=== PATIENT | female | born 2000 | race Caucasian/White ===

== ENCOUNTER 2025-03-29 16:09 | Emergency (ER) | payer BC, SELFPAY ==
[2025-03-29 16:10] VITALS: BP 123/84; PULSE 90; RESP 20; TEMP 36.2; O2SAT 100; BMI 23.0
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
[2025-03-29] MEDS: Lidocaine 1% (20 ml mdv) 20 ML Vial INFILT (16:26)
[2025-03-29] MEDS: HYDROcodone Bitartrate/Apap 5/325 Tablet PO (16:27)
[2025-03-29] MEDS: Lidocaine/Epi/Tetracaine 50 ML 1 APPLIC TOPICAL (16:27)
[2025-03-29 17:09] VITALS: BP 111/71; PULSE 90; RESP 15; O2SAT 98
[2025-03-29 18:00] VITALS: BP 138/98; PULSE 99; RESP 20; O2SAT 98; O2SAT 99
--- OUTSIDE RECORDS SUMMARY | 2025-03-29 18:05 | XMS RPT_ITS | CCD ---
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 granulocytes (Bld) [#/Vol] 0.06 10*3/uL Normal <0.10 [facility] Comment on above: Order Comment: Speci men Type: BLOOD SPECIMEN Ordering Facility: [facility] Address: [address] [place] [address] Performed By: #### 5 7021-8 #### [facility] CLIA [id number] [address] [place] [address] [place] Immature granulocytes/100 WBC (Bld) 0.7 % Normal [facility] Comment on above: Order Comment: Speci men Type: BLOOD SPECIMEN Ordering Facility: [facility] Address: [address] [place] [address] Performed By: #### 5 7021-8 #### [facility] CLIA [id number] [address] [place] [address] [place] Lymphocytes (Bld) [#/Vol] 1.96 10*3/uL Normal 1.00-4.00 [facility] Comment on above: Order Comment: Speci men Type: BLOOD SPECIMEN Ordering Facility: [facility] Address: [address] [place] [address] Performed By: #### 5 7021-8 #### [facility] CLIA [id number] [address] [place] [address] [place] Lymphocytes/100 WBC (Bld) 21.4 % Normal [facility] Comment on above: Order Comment: Speci men Type: BLOOD SPECIMEN Ordering Facility: [facility] Address: [address] [place] [address] Performed By: #### 5 7021-8 #### [facility] CLIA [id number] [address] [place] [address] [place] MCH (RBC) [Entitic mass] 30.7 pg Normal 26.0-34.0 [facility] Comment on above: Order Comment: Speci men Type: BLOOD SPECIMEN Ordering Facility: [facility] Address: [address] [place] [address] Performed By: #### 5 7021-8 #### [facility] [place] [id number] [address] [place] [address] [place] MCHC (RBC) [Mass/Vol] 32.0 g/dL Normal 30.5-36.0 [facility] Comment on above: Order Comment: Speci men Type: BLOOD SPECIMEN Ordering Facility: [facility] Address: [address] [place] [address] Performed By: #### 5 7021-8 #### [facility] IA [id number] [address] [place] [address] [place] MCV (RBC) [Entitic vol] 95.9 fL Normal 80.0-100.0 [facility] Comment on above: Order Comment: Speci men Type: BLOOD SPECIMEN Ordering Facility: [facility] Address: [address] [place] [address] Performed By: #### 5 7021-8 #### [facility] [place] [id number] [address] [place] [address] [place] Monocytes (Bld) [#/Vol] 1.05 10*3/uL High <0.87 [facility] Comment on above: Order Comment: Speci men Type: BLOOD SPECIMEN Ordering Facility: [facility] Address: [address] [place] [address] Performed By: #### 5 7021-8 #### [facility] CLIA [id number] [address] [place] [address] [place] Monocytes/100 WBC (Bld) 11.4 % Normal [facility] Comment on above: Order Comment: Speci men Type: BLOOD SPECIMEN Ordering Facility: [facility] Address: [address] [place] [address] Performed By: #### 5 7021-8 #### [facility] CLIA [id number] [address] [place] [address] [place] Neutrophils (Bld) [#/Vol] 5.88 10*3/uL Normal 1.45-7.50 [facility] Comment on above: Order Comment: Speci men Type: BLOOD SPECIMEN Ordering Facility: [facility] Address: [address] [place] [address] Performed By: #### 5 7021-8 #### [facility] CLIA [id number] [address] [place] [address] [place] Neutrophils/100 WBC (Bld) 64.0 % Normal [facility] Comment on above: Order Comment: Speci men Type: BLOOD SPECIMEN Ordering Facility: [facility] Address: [address] [place] [address] Performed By: #### 5 7021-8 #### [facility] CLIA [id number] [address] [place] [address] [place] Nucleated RBC (Bld) [#/Vol] 10*3/uL Normal <0.01 [facility] Comment on above: Order Comment: Speci men Type: BLOOD SPECIMEN Ordering Facility: [facility] Address: [address] [place] [address] Performed By: #### 5 7021-8 #### [facility] CLIA [id number] [address] [place] [address] [place] Nucleated RBC/100 WBC (Bld) [Ratio] 0.0 /[address] [facility] Comment on above: Order Comment: Speci men Type: BLOOD SPECIMEN Ordering Facility: [facility] Address: [address] [id number] Performed By: #### 5 7021-8 #### [facility] CLIA [id number] [address] [place], [place] [id number] [place] Platelet mean volume (Bld) [Entitic vol] 9.7 fL Normal 9.0-12.7 [facility] Comment on above: Order Comment: Speci men Type: BLOOD SPECIMEN Ordering Facility: [facility] Address: [address] [place], [place] [address] Performed By: #### 5 7021-8 #### [facility] CLIA [id number] [address] [place] [address] [place] Platelets (Bld) [#/Vol] 265 10*3/uL Normal 150-400 [facility] Comment on above: Order Comment: Speci men Type: BLOOD SPECIMEN Ordering Facility: [facility] Address: [address] [place] [address] Performed By: #### 5 7021-8 #### [facility] CLIA [id number] [address] [place] [address] [place] RBC (Bld) [#/Vol] 4.40 10*6/uL Normal 3.90-5.20 [facility] Comment on above: Order Comment: Speci men Type: BLOOD SPECIMEN Ordering Facility: [facility] Address: [address] [place], [place] [address] Performed By: #### 5 7021-8 #### [facility] CLIA [id number] [address] [place] [address] [place] WBC (Bld) [#/Vol] 9.18 10*3/uL Normal 3.70-11.00 [facility] Comment on above: Order Comment: Speci men Type: BLOOD SPECIMEN Ordering Facility: [facility] Address: [address] [place] [address] Performed By: #### 5 7021-8 #### [facility] CLIA [id number] [address] [place], [place] [address] [place] Comprehensive metabolic 2000 panelon 06-18-2024 Albumin [Mass/Vol] 3.9 g/dL Normal 3.2-5.0 [facility] Comment on above: Order Comment: Myi gita Type: BLOOD SPECIMEN Ordering Facility: [facility] Address: [address] [place] [address] Performed By: #### 3 040-3, , #### [facility] CLIA [id number] [address] [place], [place] [address] [place] ALP [Catalytic activity/Vol] 83 U/L Normal 45-117 [facility] Comment on above: Order Comment: Myi gita Type: BLOOD SPECIMEN Ordering Facility: [facility] Address: [address] [place] [address] Performed By: #### 3 040-3, , #### [facility] CLIA [id number] [address] [place] [address] [place] ALT [Catalytic activity/Vol] 11 U/L Low 13-61 [facility] Comment on above: Order Comment: Myi gita Type: BLOOD SPECIMEN Ordering Facility: [facility] Address: [address] [place] [address] Result Comment: Resu lts may be falsely depressed after the administration of Sulfasalazine and/or Sulfapyridine. Performed By: #### 3 040-3, , #### [facility] CLIA [id number] [address] [place], [place] [address] [place] Anion gap [Moles/Vol] 8 mmol/L Normal 5-16 [facility] Comment on above: Order Comment: Myi men Type: BLOOD SPECIMEN Ordering Facility: [facility] Address: [address] [place] [address] Performed By: #### 3 040-3, , #### [facility] CLIA [id number] [address] [place] [address] [place] AST [Catalytic activity/Vol] 18 U/L Normal 8-34 [facility] Comment on above: Order Comment: Speci men Type: BLOOD SPECIMEN Ordering Facility: [facility] Address: [address] [place] [address] Result Comment: Resu lts may be falsely depressed after the administration of Sulfasalazine and/or Sulfapyridine. Performed By: #### 3 040-3, , #### [facility] CLIA [id number] [address] [place] [address] [place] Bilirubin [Mass/Vol] 0.5 mg/dL Normal 0.2-1.0 [facility] Comment on above: Order Comment: Speci men Type: BLOOD SPECIMEN Ordering Facility: [facility] Address: [address] [place] [address] Performed By: #### 3 040-3, , #### [facility] CLIA [id number] [address] [place] [address] [place] Calcium [Mass/Vol] 10.0 mg/dL Normal 8.5-10.5 [facility] Comment on above: Order Comment: Speci men Type: BLOOD SPECIMEN Ordering Facility: [facility] Address: [address] [place] [address] Performed By: #### 3 040-3, , #### [facility] CLIA [id number] [address] [place], [place] [address] [place] Chloride [Moles/Vol] 107 mmol/L Normal 98-107 [facility] Comment on above: Order Comment: Speci men Type: BLOOD SPECIMEN Ordering Facility: [facility] Address: [address] [place] [address] Performed By: #### 3 040-3, , #### [facility] CLIA [id number] [address] [place], [place] [address] [place] CO2 [Moles/Vol] 28 mmol/L Normal 21-32 [facility] Comment on above: Order Comment: Bryec pelayo Type: BLOOD SPECIMEN Ordering Facility: [facility] Address: [address] [place] [address] Performed By: #### 3 040-3, , #### [facility] CLIA [id number] [address] [place] [address] [place] Creatinine [Mass/Vol] 0.75 mg/dL Normal 0.51-0.95 [facility] Comment on above: Order Comment: Bryce pelayo Type: BLOOD SPECIMEN Ordering Facility: [facility] Address: [address] [place] [address] Result Comment: [place] ents receiving either N-Acetylcysteine (NAC) or Metamizole prior to venipuncture, may have falsely depressed results. Performed By: #### 3 040-3, , #### [facility] CLIA [id number] [address] [place] [address] [facility] Creatinine and Glomerular filtration rate.predicted panel (S/P/Bld) 113 mL/min/1.73m??? Normal >=60 [facility] Comment on above: Order Comment: Bryce pelayo Type: BLOOD SPECIMEN Ordering Facility: [facility] Address: [address] [place] [address] Result Comment: Vicky mated Glomerular Filtration Rate (eGFR) is calculated using the 2020 CKD-EPI creatinine equation. This equation utilizes serum creatinine, sex, and age as parameters. The creatinine assay has traceable calibration to isotope dilution-mass spectrometry. Refer to KDIGO guidelines for clinical interpretation. In patients with unstable renal function, e.g. those with acute kidney injury, the eGFR may not accurately reflect actual GFR. Performed By: #### 3 040-3, , #### [facility] CLIA [id number] [address] [place], [place] [address] [place] Glucose [Mass/Vol] 112 mg/dL High 70-100 [facility] Comment on above: Order Comment: Bryce pelayo Type: BLOOD SPECIMEN Ordering Facility: [facility] Address: [address] [id number] Result Comment: The [place] [employer] (ADA) provides guidance for cutoff values for fasting glucose and random glucose. The ADA defines fasting as no caloric intake for at least 8 hours. Fasting plasma glucose results between 100 to 125 mg/dL indicate increased risk for diabetes (prediabetes). Fasting plasma glucose results greater than or equal to 126 mg/dL meet the criteria for diagnosis of diabetes. In the absence of unequivocal hyperglycemia, results should be confirmed by repeat testing. In a patient with classic symptoms of hyperglycemia or hyperglycemic crisis, random plasma glucose results greater than or equal to 200 mg/dL meet the criteria for diagnosis of diabetes. Reference: Standards of Medical Care in Diabetes 2016, [place] [employer]. Diabetes Care. 2016.39(Suppl 1). Results may be falsely elevated after the administration of Sulfapyridine. Results may be falsely depressed after the administration of Sulfasalazine. Performed By: #### 3 040-3, , #### [facility] CLIA [id number] [address] [place] [address] [place] Potassium [Moles/Vol] 4.2 mmol/L Normal 3.5-5.1 [facility] Comment on above: Order Comment: Speci men Type: BLOOD SPECIMEN Ordering Facility: [facility] Address: [address] [place] [address] Performed By: #### 3 040-3, , #### [facility] CLIA [id number] [address] [place], [place] [address] [place] Protein [Mass/Vol] 6.9 g/dL Normal 6.0-8.5 [facility] Comment on above: Order Comment: Speci men Type: BLOOD SPECIMEN Ordering Facility: [facility] Address: [address] [place] [address] Performed By: #### 3 040-3, , #### [facility] CLIA [id number] [address] [place], [place] [address] [place] Sodium [Moles/Vol] 143 mmol/L Normal 136-145 [facility] Comment on above: Order Comment: Speci men Type: BLOOD SPECIMEN Ordering Facility: [facility] Address: [address] [place] [address] Performed By: #### 3 040-3, 97078-9, 93017-8 #### [facility] CLIA [id number] [address] [place], [place] [address] [facility] Urea nitrogen [Mass/Vol] 19 mg/dL Normal 7- [facility] Comment on above: Order Comment: Speci men Type: BLOOD SPECIMEN Ordering Facility: [facility] Address: [address] [place] [address] Performed By: #### 3 040-3, 43286-0, 47809-6 #### [facility] CLIA [id number] [address] [place], [place] [address] [facility] ED Triage Noteon 06-18-2024 ED Triage Note HNO ID: [id number] Author: KRISTIE GARCIA PA-C Service: ? Author Type: Physician Screener Perfumer Type: ED Triage Notes Filed: 06/18/2024 19:30 Note Text: ED TRIAGE PROVIDER NOTE Patient Name: Saran Mendez Service Date: 06/18/24 BRIEF HPI: This is a 24 year old female who presents to the ED with: constipation x 2 weeks. Has had small bowel movements but still feels as though she is backed up. No N/V, has been having flatus. Reports history of colitis and is concerned this is what she has again. No rectal pain BRIEF EXAM: NAD Awake and Alert Non labored breathing Soft, nontender, nondistended abdomen INITIAL WORKUP AND DECISION MAKING: Orders Placed This Encounter CT ABD/PEL W IVCON CMP CBC W/ DIFF LIPASE MAG LEVEL iv contrast (radiology procedure) SIGNATURE: Kristie Garcia PA-C Normal [facility] HCG QUALITATIVEon 06-18-2024 HCG, QUALITATIVE Negative Normal Negative [facility] Comment on above: Order Comment: Speci men Type: BLOOD SPECIMEN Ordering Facility: [facility] Address: [address] [place], [place] [address] Performed By: #### H CG #### [facility] CLIA [id number] [address] [place] [address] [place] Lipase SerPl-cCncon 06-19-19 Lipase [Catalytic activity/Vol] 47 U/L Normal 12-60 [facility] Comment on above: Order Comment: Speci men Type: BLOOD SPECIMEN Ordering Facility: [facility] Address: [address] [place] [address] Performed By: #### 3 040-3, 60580-3, 48988-6 #### [facility] CLIA [id number] [address] [place] [address] [place] Magnesium SerPl-mCncon 06-18 Magnesium [Mass/Vol] 1.8 mg/dL Normal 1.6-2.6 [facility] Comment on above: Order Comment: [facility] Type: BLOOD SPECIMEN Ordering Facility: [facility] Address: [address] [place] [address] Performed By: #### 3 040-3, 00163-7, 44096-1 #### [facility] CLIA [id number] [address] [place] [address] [place] Phone Msgon 03-29-2024 Phone Msg - From: Courtney Najera MA ([facility] Scheduling) To: Courtney Najera MA; Sent: 03/29/2024 09:33:18 EST Subject: FW: Ace Vivas MD --- [facility] [employer] SUPERVISOR: Appointment Request Actions: Message Caller Name: SARAN MENDEZ; Caller Number: H - From: SARAN MENDEZ To: Ace Vivas MD --- [facility] [employer]NA[employer] SUPERVISOR ([facility]) Sent: 03/29/2024 06:41 a.m. EST Subject: Appointment Request Thank you for your message. It has been successfully sent to the appropriate care team. Patient Name: SARAN MENDEZ Patient : 2000 Appointment Dates: First Available Appointment Preferred Days: Monday,Monday,,,Monday Preferred Time: Afternnoon Contact Patient by: Phone - [phone] Reason for Visit: Remove my paraguard iud and go onto control pill. I have missed my last couple appointments for this procedure, for which I apologize. TRIED TO CALL PT. NO ANSWER, NO V/M. WE CAN SCEDULE PT FOR THIS APPT, BUT PT NEEDS TO KNOW IF SHE NO SHOWS FOR THIS APPT SHE WILL BE DISMISSED FROM THE PRACTICE PER OUR POLICY. ALSO, PER [place] NO U/S IS NEEDED FOR REMOVAL Normal [facility] Phone Msgon 02-13-2024 Phone Msg - From: Courtney Najera MA To: Cristiane Vazquez; Sent: 02/13/2024 11:08:20 EDT Subject: IUD REMOVAL Actions: Message Caller Name: SARAN MENDEZ; Caller Number: H PT IS SCHEDULED WITH DR VIVAS ON 03/19/24 TO REMOVE PARAGARD. PER DR VIVAS, NO U/S NEEDED noted Normal [facility] .Auto Diffon 01-28-2024 Basophil, Absolute 0.1 10 3/mcL Normal 0.0-0.[address] [facility] Comment on above: Performed By: #### M DW, ANEU, GFR, BMP, ADIFF, CBC #### [facility] [address] [place] [address] Basophils/100 WBC (Bld) 0.4 % Normal 0.0-2.5 [facility] Comment on above: Performed By: #### M DW, ANEU, GFR, BMP, ADIFF, CBC #### [facility] [address] [place] [address] Eosinophil, Absolute 0.0 10 3/mcL Normal 0.0-0.7 [facility] Comment on above: Performed By: #### M DW, ANEU, GFR, BMP, ADIFF, CBC #### [address] [address] Eosinophils/100 WBC (Bld) 0.3 % Normal 0.0-6.0 [facility] Comment on above: Performed By: #### M DW, ANEU, GFR, BMP, ADIFF, CBC #### [address] [address] Lymphocyte, Absolute 1.8 10 3/mcL Normal 0.9-4.3 [facility] Comment on above: Performed By: #### M DW, ANEU, GFR, BMP, ADIFF, CBC #### [address] [address] Lymphocytes/100 WBC (Bld) 12.8 % Low 20.0-40.0 [facility] Comment on above: Performed By: #### M DW, ANEU, GFR, BMP, ADIFF, CBC #### [address] [address] Monocyte, Absolute 1.1 10 3/mcL Normal 0.1-1.[address] [facility] Comment on above: Performed By: #### M DW, ANEU, GFR, BMP, ADIFF, CBC #### [address] [address] Monocytes/100 WBC (Bld) 8.1 % Normal 2.0-13.0 [facility] Comment on above: Performed By: #### M DW, ANEU, GFR, BMP, ADIFF, CBC #### [address] [address] Neutrophils/100 WBC (Bld) 78.4 % High 50.0-75.0 [facility] Comment on above: Performed By: #### M DW, ANEU, GFR, BMP, ADIFF, CBC #### [address] [address] .GFRon 01-28-2024 GFR >60 [address] [facility] Comment on above: Result Comment: GFR Population mean for , Non- Americans Ages 20-29 = 116 mL/min/1.73 sq.m. Ages 30-39 = 107 mL/min/1.73 sq.m. Ages 40-49 = 99 mL/min/1.73 sq.m. Ages 50-59 = 93 mL/min/1.73 sq.m. Ages 60-69 = 85 mL/min/1.73 sq.m. Ages 70+ = 75 mL/min/1.73 sq.m. Chronic Kidney Disease: Less than 60 mL/min/1.73 square meters End Stage Renal Disease: Less than 15 mL/min/1.73 square meters Performed By: #### M DW, ANEU, GFR, BMP, ADIFF, CBC #### [place] [address] GFR Non- >60 Normal [facility] Comment on above: Result Comment: GFR Population mean for , Non- Americans Ages 20-29 = 116 mL/min/1.73 sq.m. Ages 30-39 = 107 mL/min/1.73 sq.m. Ages 40-49 = 99 mL/min/1.73 sq.m. Ages 50-59 = 93 mL/min/1.73 sq.m. Ages 60-69 = 85 mL/min/1.73 sq.m. Ages 70+ = 75 mL/min/1.73 sq.m. Chronic Kidney Disease: Less than 60 mL/min/1.73 square meters End Stage Renal Disease: Less than 15 mL/min/1.73 square meters Performed By: #### M DW, ANEU, GFR, BMP, ADIFF, CBC #### [place] [address] .MDWon 01-28-2024 Monocyte Distribution Width 15.18 Normal 0.00-20.00 [facility] Comment on above: Result Comment: For ED adult patients suspected of sepsis, MDW<=20.0 does not rule out sepsis or risk of sepsis Performed By: #### M DW, ANEU, GFR, BMP, ADIFF, CBC #### [place] [address] .NEUABSon 01-28-2024 Neutrophil, Absolute 10.9 10 3/mcL High 2.3-8.1 [facility] Comment on above: Performed By: #### M DW, ANEU, GFR, BMP, ADIFF, CBC #### [place] [address] BMPon 01-28-2024 BUN/Creatinine Ratio 16.0 ratio Normal 10.0-22.[address] [facility] Comment on above: Performed By: #### M DW, ANEU, GFR, BMP, ADIFF, CBC #### [address] [address] Calcium [Mass/Vol] 9.5 mg/dL Normal 8.7-10.4 [facility] Comment on above: Performed By: #### M DW, ANEU, GFR, BMP, ADIFF, CBC #### [address] [address] Chloride [Moles/Vol] 107 mmol/L Normal 98-[address] [facility] Comment on above: Performed By: #### M DW, ANEU, GFR, BMP, ADIFF, CBC #### [address] [address] CO2 [Moles/Vol] 27 mmol/L Normal 22-32 [facility] Comment on above: Performed By: #### M DW, ANEU, GFR, BMP, ADIFF, CBC #### [address] [address] Creatinine [Mass/Vol] 0.75 mg/dL Normal 0.50-1.20 [facility] Comment on above: Result Comment: Test ing performed on [email or web address] analyzer using enzymatic creatinine methodology. Performed By: #### M DW, ANEU, GFR, BMP, ADIFF, CBC #### [address] [address] Electrolyte Balance 7.0 mEq/L Normal 4.0-15.0 [facility] Comment on above: Performed By: #### M DW, ANEU, GFR, BMP, ADIFF, CBC #### [address] [address] Glucose [Mass/Vol] 98 mg/dL Normal 70-110 [facility] MAIN Comment on above: Performed By: #### M DW, ANEU, GFR, BMP, ADIFF, CBC #### [place] [id number] Potassium [Moles/Vol] 3.8 mmol/L Normal 3.5-5.0 [facility] MAIN Comment on above: Performed By: #### M DW, ANEU, GFR, BMP, ADIFF, CBC #### [place] [address] Sodium [Moles/Vol] 141 mmol/L Normal 136-145 [facility] MAIN Comment on above: Performed By: #### M DW, ANEU, GFR, BMP, ADIFF, CBC #### [place] [address] Urea nitrogen [Mass/Vol] 12.0 mg/dL Normal 8.0-22.0 [facility] MAIN Comment on above: Performed By: #### M DW, ANEU, GFR, BMP, ADIFF, CBC #### [place] [address] CBCon 01-28-2024 Erythrocyte distribution width (RBC) [Ratio] 14.3 % Normal 11.5-15.5 [facility] MAIN Comment on above: Performed By: #### M DW, ANEU, GFR, BMP, ADIFF, CBC #### [place] [address] Hematocrit (Bld) [Volume fraction] 38.7 % Normal 34.0-46.0 [facility] MAIN Comment on above: Performed By: #### M DW, ANEU, GFR, BMP, ADIFF, CBC #### [place] [address] Hgb 12.8 G/dL Normal 12.0-16.0 [facility] MAIN Comment on above: Performed By: #### M DW, ANEU, GFR, BMP, ADIFF, CBC #### [place] [address] MCH (RBC) [Entitic mass] 31.1 pg Normal 27.0-33.0 [facility] MAIN Comment on above: Performed By: #### M DW, ANEU, GFR, BMP, ADIFF, CBC #### [place] [address] MCHC 33.0 G/dL Normal 32.0-36.0 [facility] MAIN Comment on above: Performed By: #### M DW, ANEU, GFR, BMP, ADIFF, CBC #### [place] [address] MCV (RBC) [Entitic vol] 94.3 fL Normal 80.0-99.0 [facility] MAIN Comment on above: Performed By: #### M DW, ANEU, GFR, BMP, ADIFF, CBC #### [place] [address] Platelet 256 10 3/mcL Normal 150-450 [facility] MAIN Comment on above: Performed By: #### M DW, ANEU, GFR, BMP, ADIFF, CBC #### [place] [address] Platelet mean volume (Bld) [Entitic vol] 7.4 fL Normal 6.6-10.5 [facility] MAIN Comment on above: Performed By: #### M DW, ANEU, GFR, BMP, ADIFF, CBC #### [place] [address] RBC 4.11 10 6/mcL Normal 4.10-5.30 [facility] MAIN Comment on above: Performed By: #### M DW, ANEU, GFR, BMP, ADIFF, CBC #### [place] [address] WBC 13.9 10 3/mcL High 4.5-10.8 [facility] MAIN Comment on above: Performed By: #### M DW, ANEU, GFR, BMP, ADIFF, CBC #### [place] [address] LABORATORYOrdered By: Tao Parker on 01-28-2024 Appearance (U) Clear (01/28/24 5:27 PM) [facility] Beta HCG ( test) Ql (U) Negative (01/28/24 5:27 PM) [facility] Bilirubin Urine Dipstick Negative (01/28/24 5:27 PM) [facility] Blood Urine Dipstick Negative (01/28/24 5:27 PM) [facility] Glucose Urine Dipstick Negative (01/28/24 5:27 PM) [facility] Ketones Urine Dipstick Negative (01/28/24 5:27 PM) [facility] Leukocytes Urine Dipstick Negative (01/28/24 5:27 PM) [facility] Nitrite Urine Dipstick Negative (01/28/24 5:27 PM) [facility] pH Urine Dipstick 6 (01/28/24 5:27 PM) [facility] Protein Urine Dipstick Trace (Abnormal) (01/28/24 5:27 PM) [facility] Specific [place] Urine Dipstick 1.010 (01/28/24 5:27 PM) [facility] Urine Color Urine Dipstick Yellow (01/28/24 5:27 PM) [facility] Urobilinogen Urine Dipstick 0.2 mg/dl (01/28/24 5:27 PM) [facility] LABORATORYOrdered By: SYSTEM SYSTEM on 01-28-2024 Basophils (Bld) [#/Vol] 0.1 103/mcL Normal 0.0 - 0.3 10^3/mcL Workflow SS Basophils/100 WBC (Bld) 0.4 % Normal 0.0 - 2.5 % Workflow SS Calcium [Mass/Vol] 9.5 mg/dL Normal 8.7 - 10. 4 mg/dL ADM SS Chloride [Moles/Vol] 107 mmol/L Normal 98 - 110 mEq/L AH ADM SS CO2 [Moles/Vol] 27 mmol/L Normal 22 - 32 mEq/L ADM SS Creatinine [Mass/Vol] 0.75 mg/dL Normal 0.50 - 1.20 mg/dL ADM SS Comment on above: Interpretive Data: T esting performed on [email or web address] analyzer using enzymatic creatinine methodology. Electrolyte Balance 7.0 mEq/L Normal 4.0 - 15 .0 mEq/L ADM SS Eosinophils (Bld) [#/Vol] 0.0 103/mcL Normal 0.0 - 0.7 10^3/mcL Workflow SS Eosinophils/100 WBC (Bld) 0.3 % Normal 0.0 - 6.0 % Workflow SS Erythrocyte distribution width (RBC) [Ratio] 14.3 % Normal 11.5 - 15.5 % Workflow SS GFR/1.73 sq M.predicted among blacks MDRD (S/P/Bld) [Vol rate/Area] ml/min/1.73sqm Invalid Interpretation Code [facility] Comment on above: Interpretive Data: GFR Population mean for , Non- Americans Ages 20-29 = 116 mL/min/1.73 sq.m. Ages 30-39 = 107 mL/min/1.73 sq.m. Ages 40-49 = 99 mL/min/1.73 sq.m. Ages 50-59 = 93 mL/min/1.73 sq.m. Ages 60-69 = 85 mL/min/1.73 sq.m. Ages 70+ = 75 mL/min/1.73 sq.m. Chronic Kidney Disease: Less than 60 mL/min/1.73 square meters End Stage Renal Disease: Less than 15 mL/min/1.73 square meters GFR/1.73 sq M.predicted among non-blacks MDRD (S/P/Bld) [Vol rate/Area] ml/min/1.73sqm Invalid Interpretation Code [facility] Comment on above: Interpretive Data: GFR Population mean for , Non- Americans Ages 20-29 = 116 mL/min/1.73 sq.m. Ages 30-39 = 107 mL/min/1.73 sq.m. Ages 40-49 = 99 mL/min/1.73 sq.m. Ages 50-59 = 93 mL/min/1.73 sq.m. Ages 60-69 = 85 mL/min/1.73 sq.m. Ages 70+ = 75 mL/min/1.73 sq.m. Chronic Kidney Disease: Less than 60 mL/min/1.73 square meters End Stage Renal Disease: Less than 15 mL/min/1.73 square meters Glucose [Mass/Vol] 98 mg/dL Normal 70 - 110 mg/dL ADM SS Hematocrit (Bld) [Volume fraction] 38.7 % Normal 34.0 - 46.0 % AH Workflow SS Hemoglobin (Bld) [Mass/Vol] 12.8 G/dL Normal 12.0 - 16.0 G/dL AH Workflow SS Lymphocytes (Bld) [#/Vol] 1.8 103/mcL Normal 0.9 - 4.3 10^3/mcL AH Workflow SS Lymphocytes/100 WBC (Bld) 12.8 % Low 20.0 - 40.0 % AH Workflow SS MCH (RBC) [Entitic mass] 31.1 pg Normal 27.0 - 33.0 pg AH Workflow SS MCHC 33.0 G/dL Normal 32.0 - 36.0 G/dL AH Workflow SS MCV (RBC) [Entitic vol] 94.3 fL Normal 80.0 - 99.0 fL AH Workflow SS Monocyte distribution width Auto (Bld) [Entitic vol] 15.18 1 Normal 0.00 - 20.00 AH Workflow SS Comment on above: Result Comment: For ED adult patients suspected of sepsis, MDW<=20.0 does not rule out sepsis or risk of sepsis Monocytes (Bld) [#/Vol] 1.1 103/mcL Normal 0.1 - 1.4 10^3/mcL AH Workflow SS Monocytes/100 WBC (Bld) 8.1 % Normal 2.0 - 13.0 % AH Workflow SS Neutrophils (Bld) [#/Vol] 10.9 103/mcL High 2.3 - 8.1 10^3/mcL AH Workflow SS Neutrophils/100 WBC (Bld) 78.4 % High 50.0 - 75.0 % AH Workflow SS Platelet mean volume (Bld) [Entitic vol] 7.4 fL Normal 6.6 - 10.5 fL AH Workflow SS Platelets (Bld) [#/Vol] 256 103/mcL Normal 150 - 450 10^3/mcL AH Workflow SS Potassium [Moles/Vol] 3.8 mmol/L Normal 3.5 - 5.0 mEq/L ADM SS RBC (Bld) [#/Vol] 4.11 106/mcL Normal 4.10 - 5.3 0 10^6/mcL AH Workflow SS Sodium [Moles/Vol] 141 mmol/L Normal 136 - 145 mEq/L ADM SS Urea nitrogen [Mass/Vol] 12.0 mg/dL Normal 8.0 - 22.0 mg/dL AH ADM SS Urea nitrogen/Creatinine [Mass ratio] 16.0 ratio Normal 10.0 - 22.0 ratio AH ADM SS WBC (Bld) [#/Vol] 13.9 103/mcL High 4.5 - 10.8 10^3/mcL AH Workflow SS XR CHEST 1 VIEWon 01-28-2024 XR CHEST 1 VIEW ORIGINAL EXAMINATION: ONE XRAY VIEW OF THE CHEST01/28/2024 5:48 pm COMPARISON: None HISTORY: ORDERING SYSTEM PROVIDED HISTORY: Reason for Exam: near syncope FINDINGS: The cardiomediastinal silhouette is within normal limits. No focal consolidation or pulmonary edema. No pleural effusion or visible pneumothorax. No acute skeletal abnormality is seen. IMPRESSION: No acute radiographic finding. I have reviewed the resident's preliminary report and agree with findings and impression. Interpreted by: Moises Joy Preliminary Report By: Jonathan Hein Electronically signed By Moises Joy Dictated Date: 01/28/2024 5:53:58 PM Prelim Date: 01/28/2024 5:55:38 PM Sign Date: 01/28/2024 6:11:29 PM [facility] Msgon 12-11-2023 Phone Msg - From: Courtney Najera MA ([facility] Sched[facility]) To: Courtney Najera MA; Sent: 12/11/2023 07:48:10 EDT Subject: FW: Ace Vivas MD --- [facility] [employer]CE SUPERVISOR: Appointment Request Actions: Message Caller Name: SARAN MENDEZ; Caller Number: H - From: SARAN MENDEZ To: Ace Vivas MD --- [facility] [employer]NACE SUPERVISOR ([facility]) Sent: 12/11/2023 03:24 a.m. EDT Subject: Appointment Request Thank you for your message. It has been successfully sent to the appropriate care team. Patient Name: SARAN MENDEZ Patient : [id number] Appointment Dates: Between Dec 25, 2023 and Dec 27, 2023 Preferred Days: Monday,Monday Preferred Time: Anytime December 24, or December 26 before 11am Contact Patient by: Phone - [phone] Reason for Visit: Removal of paragard and to get an alternative form of control. Likely the pill. CALLED AND LEFT A VM FOR PT TO CALL BACK TO GET SCHEDULED. SHE CALLED ANSWERING SERVICE NEEDING TO CANCEL TODAY APPT (12/11/23) AND RESCHEDULE. I HAVE YET TO REMOVE HER FROM TODAYS SCHEDULE, FOR THE PURPOSE OF EASILY RESCHEDULING HER TRIED TO CONTACT PT AGAIN. I CANCELLED TODAY APPT. SHE WILL NEED TO CALL OFFICE TO RESCHEDULE Normal [facility] Phone Dishable 12-01-2023 Phone Msg - From: SARAN MENDEZ To: Patient Information Pool Sent: 12/01/2023 04:13 a.m. EDT Subject: Patient information update SARAN MENDEZ requests the following corrections: Personal identification Old Value New Value Email address [email or web address] ? Normal [facility] Phone IESn 11-30-2023 Phone Msg - From: Gabbi Vargas To: Cristiane Vazquez; Sent: 11/30/2023 08:10:57 EDT Subject: NO SHOW APPT ON 11/30/2023 Actions: Message Caller Name: SARAN MENDEZ; Caller Number: H L/M ON V/M REGARDING NO SHOW APPT ON 11/30/[address] VIVAS TO DISCUSS REMOVING THE IUD AND TALK OCP. THANK YOU, SB noted Normal [facility] ALLIED HEALTHon 10-06-2023 ALLIED HEALTH HNO ID: [id number] Author: CADE CRESPO, CT Service: Radiology Author Type: Technologist Type: Allied Health Filed: 10/06/2023 17:31 Note Text: Radiology Service Progress Note DATE OF SERVICE: October 06, 2023 TIME: 5:30 PM PATIENT IDENTITY VERIFICATION COMPLETED USING TWO (2) STANDARD IDENTIFIERS: Name and Date of confirmed by patient verbally and Name and Date of confirmed by identification band. FALL SCREENING: Has the patient had 2 falls in the last year or 1 fall with injury or currently using an Ambulatory Assistive Device (Walker, Cane, Wheelchair, Crutches, etc.)? No PATIENT GENDER DATA: Female. status: : No status: NO. PATIENT RELEVANT IMPLANT DATA REVIEWED: Not Applicable PATIENT PRESENTS WITH AN IMPLANTABLE OR ATTACHED DRAIN CLEANER: No ALLERGIES: Reviewed and unchanged CONTRAST ALLERGY: NO. EXAM: CT -CONTRAST INDUCED NEPHROPATHY RISK FACTORS: Not applicable CREATININE: Creatinine Date Value Ref Range Status 07/10/2023 0.65 0.58 - 0.96 mg/dL Final 07/10/2023 0.69 0.58 - 0.96 mg/dL Final 07/09/2023 0.81 0.58 - 0.96 mg/dL Final Estimated Glomerular Filtration Rate Date Value Ref Range Status 07/10/2023 126 >=60 mL/min/1.73m? Final Comment: Estimated Glomerular Filtration Rate (eGFR) is calculated using the 2020 CKD-EPI creatinine equation. This equation utilizes serum creatinine, sex, and age as parameters. The creatinine assay has traceable calibration to isotope dilution-mass spectrometry. Refer to KDIGO guidelines for clinical interpretation. In patients with unstable renal function, e.g. those with acute kidney injury, the eGFR may not accurately reflect actual GFR. P.O.C.T. RESULTS: POC done: Yes, See Lab Tab October 06, 2023 TREATMENT: N/A PERIPHERAL IV DATA: Inpatient - refer to LDA documentation RADIOLOGY DEPARTMENT: CT; Exam(s) Completed: Abdomen/Pelvis SIGNATURE: SHAYNA Costello PATIENT NAME: Saran Mendez DATE: October 06, 2023 TIME: 5:30 PM Normal [facility] Basic metabolic 2000 panelon 10-06-2023 Anion gap [Moles/Vol] 8 mmol/L Normal 8-15 [facility] Comment on above: Order Comment: Speci men Type: BLOOD SPECIMEN Ordering Facility: [facility] Address: [address] [id number] Performed By: #### 2 4321-2, 3040-3 #### [facility] CLIA [id number] [address] [place] [address] [place] Calcium [Mass/Vol] 9.5 mg/dL Normal 8.5-10.2 [facility] Comment on above: Order Comment: Speci men Type: BLOOD SPECIMEN Ordering Facility: [facility] Address: [address] [place], [place] [id number] Performed By: #### 2 4321-2, 0-3 #### [facility] CLIA [id number] [address] [place] [address] [place] Chloride [Moles/Vol] 103 mmol/L Normal 98-107 [facility] Comment on above: Order Comment: Speci men Type: BLOOD SPECIMEN Ordering Facility: [facility] Address: [address] [place] [address] Performed By: #### 2 1-2, 3039-3 #### [facility] CLIA [id number] [address] [place] [address] [place] CO2 [Moles/Vol] 28 mmol/L Normal 22-30 [facility] Comment on above: Order Comment: Speci men Type: BLOOD SPECIMEN Ordering Facility: [facility] Address: [address] [place], [place] [id number] Performed By: #### 2 1-2, 3039-3 #### [facility] CLIA [id number] [address] [place] [address] [place] Creatinine [Mass/Vol] 0.86 mg/dL Normal 0.58-0.96 [facility] Comment on above: Order Comment: Speci men Type: BLOOD SPECIMEN Ordering Facility: [facility] Address: [address] [place], [place] [address] Performed By: #### 2 4321-2, 3040-3 #### [facility] CLIA [id number] [address] [place] [address] [place] Creatinine and Glomerular filtration rate.predicted panel (S/P/Bld) 97 mL/min/1.73m??? Normal >=60 [facility] Comment on above: Order Comment: Bryce pelayo Type: BLOOD SPECIMEN Ordering Facility: [facility] Address: [address] [place] [address] Result Comment: Vicky mated Glomerular Filtration Rate (eGFR) is calculated using the 2020 CKD-EPI creatinine equation. This equation utilizes serum creatinine, sex, and age as parameters. The creatinine assay has traceable calibration to isotope dilution-mass spectrometry. Refer to KDIGO guidelines for clinical interpretation. In patients with unstable renal function, e.g. those with acute kidney injury, the eGFR may not accurately reflect actual GFR. Performed By: #### 2 4321-2, 3040-3 #### [facility] CLIA [id number] [address] [place] [address] [place] Glucose [Mass/Vol] 113 mg/dL High 74-99 [facility] Comment on above: Order Comment: Bryce pelayo Type: BLOOD SPECIMEN Ordering Facility: [facility] Address: [address] [place] [address] Result Comment: The [place] Diabetes Association (ADA) provides guidance for cutoff values for fasting glucose and random glucose. The ADA defines fasting as no caloric intake for at least 8 hours. Fasting plasma glucose results between 100 to 125 mg/dL indicate increased risk for diabetes (prediabetes). Fasting plasma glucose results greater than or equal to 126 mg/dL meet the criteria for diagnosis of diabetes. In the absence of unequivocal hyperglycemia, results should be confirmed by repeat testing. In a patient with classic symptoms of hyperglycemia or hyperglycemic crisis, random plasma glucose results greater than or equal to 200 mg/dL meet the criteria for diagnosis of diabetes. Reference: Standards of Medical Care in Diabetes 2016, [place] Diabetes Association. Diabetes Care. 2016.39(Suppl 1). Performed By: #### 2 4321-2, 3040-3 #### [facility] CLIA [id number] [address] [place] [address] [place] Potassium [Moles/Vol] 3.8 mmol/L Normal 3.7-5.1 [facility] Comment on above: Order Comment: Speci men Type: BLOOD SPECIMEN Ordering Facility: [facility] Address: [address] [place] [address] Performed By: #### 2 4321-2, 3040-3 #### [facility] CLIA [id number] [address] [place] [address] [place] Sodium [Moles/Vol] 139 mmol/L Normal 136-144 [facility] Comment on above: Order Comment: Speci men Type: BLOOD SPECIMEN Ordering Facility: [facility] Address: [address] [place] [address] Performed By: #### 2 4321-2, 304-3 #### [facility] CLIA [id number] [address] [place] [address] [place] Urea nitrogen [Mass/Vol] 7 mg/dL Normal 7-21 [facility] Comment on above: Order Comment: Speci men Type: BLOOD SPECIMEN Ordering Facility: [facility] Address: [address] [place] [address] Performed By: #### 2 4321-2, 0-3 #### [facility] CLIA [id number] [address] [place], [place] [address] [place] [address] [place] CBC W Auto Differential pane l (Bld)on 10-06-2023 Basophils (Bld) [#/Vol] 10*3/uL Normal <0.11 [facility] Comment on above: Order Comment: Speci men Type: BLOOD SPECIMEN Ordering Facility: [facility] Address: [address] [place] [address] Performed By: #### H STNT #### [facility] CLIA [id number] [address] Basophils/100 WBC (Bld) 0.2 % Normal [facility] Comment on above: Order Comment: Speci men Type: BLOOD SPECIMEN Ordering Facility: [facility] Address: [address] [place] [address] Performed By: #### H STNT #### [facility] CLIA [id number] [address] [place] [address] [facility] [place] Differential cell count method Nom (Bld) Auto Normal [facility] Comment on above: Order Comment: Speci men Type: BLOOD SPECIMEN Ordering Facility: [facility] Address: [address] [place] [address] Performed By: #### H STNT #### [facility] CLIA [id number] [address] [place] [address] [place] Eosinophils (Bld) [#/Vol] 0.07 10*3/uL Normal <0.46 [facility] Comment on above: Order Comment: Speci men Type: BLOOD SPECIMEN Ordering Facility: [facility] Address: [address] [place] [address] Performed By: #### H STNT #### [facility] CLIA [id number] [address] Eosinophils/100 WBC (Bld) 0.6 % Normal [facility] Comment on above: Order Comment: Speci men Type: BLOOD SPECIMEN Ordering Facility: [facility] Address: [address] [place] [address] Performed By: #### H STNT #### [facility] CLIA [id number] [address] [place] Erythrocyte distribution width (RBC) [Ratio] 12.8 % Normal 11.5-15.0 [facility] Comment on above: Order Comment: Speci men Type: BLOOD SPECIMEN Ordering Facility: [facility] Address: [address] [place] [address] Performed By: #### H STNT #### [facility] CLIA [id number] [address] [id number] [facility] [place] Hematocrit (Bld) [Volume fraction] 47.2 % High 36.0-46.0 [facility] Comment on above: Order Comment: Speci men Type: BLOOD SPECIMEN Ordering Facility: [facility] Address: [address] [place] [address] Performed By: #### H STNT #### [facility] CLIA [id number] [address] [place] [address] [place] Hemoglobin (Bld) [Mass/Vol] 15.0 g/dL Normal 11.5-15.5 [facility] Comment on above: Order Comment: Speci men Type: BLOOD SPECIMEN Ordering Facility: [facility] Address: [address] [place] [address] Performed By: #### H STNT #### [facility] CLIA [id number] [address] [place] [address] [place] Immature granulocytes (Bld) [#/Vol] 10*3/uL Normal <0.10 [facility] Comment on above: Order Comment: Speci men Type: BLOOD SPECIMEN Ordering Facility: [facility] Address: [address] [place] [address] Performed By: #### H STNT #### [facility] CLIA [id number] [address] [place] [address] [place] Immature granulocytes/100 WBC (Bld) 0.2 % Normal [facility] Comment on above: Order Comment: Speci men Type: BLOOD SPECIMEN Ordering Facility: [facility] Address: [address] [place] [address] Performed By: #### H STNT #### [facility] CLIA [id number] [address] [place] [address] [place] Lymphocytes (Bld) [#/Vol] 1.31 10*3/uL Normal 1.00-4.00 [facility] Comment on above: Order Comment: Speci men Type: BLOOD SPECIMEN Ordering Facility: [facility] Address: [address] [place] [address] Performed By: #### H STNT #### [facility] CLIA [id number] [address] [place] [address] [place] Lymphocytes/100 WBC (Bld) 11.8 % Normal [facility] Comment on above: Order Comment: Speci men Type: BLOOD SPECIMEN Ordering Facility: [facility] Address: [address] [place] [address] Performed By: #### H STNT #### [facility] CLIA [id number] [address] [place] [address] MCH (RBC) [Entitic mass] 30.3 pg Normal 26.0-34.0 [facility] Comment on above: Order Comment: Speci men Type: BLOOD SPECIMEN Ordering Facility: [facility] Address: [address] [place] [address] Performed By: #### H STNT #### [facility] CLIA [id number] [address] [place] [address] OF [facility] MCHC (RBC) [Mass/Vol] 31.8 g/dL Normal 30.5-36.0 [facility] Comment on above: Order Comment: Speci men Type: BLOOD SPECIMEN Ordering Facility: [facility] Address: [address] [place] [address] Performed By: #### H STNT #### [facility] CLIA [id number] [address] [place] [address] [place] MCV (RBC) [Entitic vol] 95.4 fL Normal 80.0-100.0 [facility] Comment on above: Order Comment: Speci men Type: BLOOD SPECIMEN Ordering Facility: [facility] Address: [address] [place] [address] Performed By: #### H STNT #### [facility] CLIA [id number] [address] [place] [address] OF [facility] Monocytes (Bld) [#/Vol] 1.16 10*3/uL High <0.87 [facility] Comment on above: Order Comment: Speci men Type: BLOOD SPECIMEN Ordering Facility: [facility] Address: [address] [place] [address] Performed By: #### H STNT #### [facility] CLIA [id number] [address] [place] [address] Monocytes/100 WBC (Bld) 10.4 % Normal [facility] Comment on above: Order Comment: Speci men Type: BLOOD SPECIMEN Ordering Facility: [facility] Address: [address] [place] [address] Performed By: #### H STNT #### [facility] CLIA [id number] [address] [place] [address] [place] Neutrophils (Bld) [#/Vol] 8.54 10*3/uL High 1.45-7.50 [facility] Comment on above: Order Comment: Speci men Type: BLOOD SPECIMEN Ordering Facility: [facility] Address: [address] [place] [address] Performed By: #### H STNT #### [facility] CLIA [id number] [address] [place] [address] [place] Neutrophils/100 WBC (Bld) 76.8 % Normal [facility] Comment on above: Order Comment: Speci men Type: BLOOD SPECIMEN Ordering Facility: [facility] Address: [address] [place] [address] Performed By: #### H STNT #### [facility] CLIA [id number] [address] [place] [address] [place] Nucleated RBC (Bld) [#/Vol] Normal [facility] Comment on above: Order Comment: Speci men Type: BLOOD SPECIMEN Ordering Facility: [facility] Address: [address] [place] [address] Performed By: #### H STNT #### [facility] CLIA [id number] [address] [place] [address] [place] Nucleated RBC/100 WBC (Bld) [Ratio] Normal [facility] Comment on above: Order Comment: Speci men Type: BLOOD SPECIMEN Ordering Facility: [facility] Address: [address] [place] [address] Performed By: #### H STNT #### [facility] CLIA [id number] [address] [place] [address] [place] Platelet mean volume (Bld) [Entitic vol] 9.8 fL Normal 9.0-12.7 [facility] Comment on above: Order Comment: Speci men Type: BLOOD SPECIMEN Ordering Facility: [facility] Address: [address] [place] [address] Performed By: #### H STNT #### [facility] CLIA [id number] [address] [place] [address] [place] Platelets (Bld) [#/Vol] 287 10*3/uL Normal 150-400 [facility] Comment on above: Order Comment: Speci men Type: BLOOD SPECIMEN Ordering Facility: [facility] Address: [address] [place] [address] Performed By: #### H STNT #### [facility] CLIA [id number] [address] [place] [address] [place] RBC (Bld) [#/Vol] 4.95 10*6/uL Normal 3.90-5.20 [facility] Comment on above: Order Comment: Speci men Type: BLOOD SPECIMEN Ordering Facility: [facility] Address: [address] [place] [address] Performed By: #### H STNT #### [facility] CLIA [id number] [address] [place] [id number] [place] [address] [place] [facility] WBC (Bld) [#/Vol] 11.12 10*3/uL High 3.70-11.00 [facility] Comment on above: Order Comment: Speci men Type: BLOOD SPECIMEN Ordering Facility: [facility] Address: [address] [place] [address] Performed By: #### H STNT #### [facility] CLIA [id number] [address] [place] [address] ABD/PEL W IVCONon 024 CT ABD/PEL W IVCON * * *Final Report* * * DATE OF EXAM: Oct 06 2023 5:30PM [facility] 0530 - CT ABD/PEL W IVCON / PROCEDURE REASON: LLQ abdominal pain * * * * Physician Interpretation * * * * EXAMINATION: CT ABDOMEN AND PELVIS WITH IV CONTRAST CLINICAL HISTORY: Right lower quadrant abdominal pain TECHNIQUE: CT of the abdomen and pelvis was performed using standard technique, scanning from just above the dome of the diaphragm to the symphysis pubis. MQ: CTAP_3 Contrast: IV: 100 ml of Omnipaque 300 Oral: None CT Radiation dose: Integrated Dose-length product (DLP) for this visit = 340.60 mGy*cm. CT Dose Reduction Employed: Automated exposure control(AEC) and iterative recon COMPARISON: 07/09/2023 RESULT: Liver: No mass. Biliary: No bile duct dilation. Gallbladder is unremarkable. Spleen: 2.5 cm circumscribed hypodense lesion in the superior aspect of the spleen is unchanged. No splenomegaly. Pancreas: No mass or duct dilation. Adrenals: No mass. Kidneys: No mass, calculus or hydronephrosis. GI tract: Circumferential wall thickening identified in the ascending colon, transverse colon, and sigmoid colon. Finding is nonspecific but may represent infectious or inflammatory colitis. There is a large amount of formed stool identified within the colon. Normal appendix. No evidence of bowel obstruction or perforation. Lymph nodes: No abdominal or pelvic lymphadenopathy. Mesentery/Peritoneum : No ascites or mass. Retroperitoneum: No mass. Vasculature: - Abdominal aorta and iliac arteries: No aneurysm. - Celiac and SMA: Patent without stenosis. - Portal venous system (SMV, splenic vein, portal vein and branches): Patent. - Hepatic veins: Patent. Pelvis: 2.3 cm left ovarian cyst. An IUD is identified the uterus. The urinary bladder is relatively nondistended. Bones/Soft Tissues: No significant finding. Lower thorax: Unremarkable. Localizer images: No additional findings. IMPRESSION: 1. Multisegmental circumferential wall thickening identified in the ascending colon, transverse colon and sigmoid colon. Findings may represent infectious or inflammatory colitis. Large amount of formed stool is seen throughout the colon. No evidence of obstruction or perforation. Prop And Effects Designer: SB Transcribe Date/Time: Oct 06 2023 5:39P Dictated by : SHIN WILSON MD This examination was interpreted and the report reviewed and electronically signed by: SHIN WILSON MD on Oct 06 2023 5:52PM EST [id number] Normal [facility] ED NOTEon 10-06-2023 ED NOTE HNO ID: [id number] Author: ANGELI JOHNSON, RN Service: Emergency Medicine Author Type: Registered Nurse Type: ED Notes Filed: 10/06/2023 19:22 Note Text: Reviewed dc orders with pt, scripts x4 reviewed. Pt verbalized understanding , denies any further needs. Ambulatory with steady gait for dc home per friend/family. [facility] ED NOTE HNO ID: [id number] Author: ANGELI JOHNSON, RN Service: Emergency Medicine Author Type: Registered Nurse Type: ED Notes Filed: 10/06/2023 18:44 Note Text: Pt asking for IV to be taken out, we want to get to pharmacy before they close.. Dr. Hatch informed [facility] ED NOTE HNO ID: [id number] Author: ANGELI JOHNSON, RN Service: Emergency Medicine Author Type: Registered Nurse Type: ED Notes Filed: 10/06/2023 16:31 Note Text: Pt to ED with c/o constipation x 1 wk. No n/v. Is able to pass gas. [facility] ED PROV NOTEon 10-06-2023 ED PROV NOTE HNO ID: [id number] Author: AMISH JEFFERY DO Service: Emergency Medicine Author Type: Physician Type: ED Provider Notes Filed: 10/06/2023 19:45 Note Text: ED Provider Note Patient Name: Saran Mendez : 2000 SERVICE DATE: 10/06/23 History Patient presents with: Constipation Saran Mendez is a 23 year old female who presents with Constipation. - Symptoms began 1 weeks prior to arrival. - Severity: moderate - Timing: constant - Quality: cramping - Symptoms are associated with lower abdominal pain, nausea. - Symptoms are not associated with chest pain, chills, diarrhea, fever, shortness of breath, and vomiting. Patient presents with lower abdominal pain and constipation. She states constipation started 1 week ago. She states that she is able to pass gas. She has had nausea, no vomiting. She states she is not on pain medication. She states there has been no change in her diet. She states she is not on medication for constipation at home, but did try an enema without relief PAST MEDICAL HISTORY Diagnosis Date Psychiatric disorder PAST SURGICAL HISTORY Procedure Laterality Date TONSILLECTOMY HX No family history on file. Social History Tobacco Use Smoking status: Every Day Packs/day: .25 Types: Cigarettes Passive exposure: Current Smokeless tobacco: Never Vaping Use Vaping Use: current everyday user Substances: Nicotine Substance and Sexual Activity Alcohol use: No Drug use: Not Currently Frequency: 4.0 times per week Types: Marijuana, Amphetamines Sexual activity: Not on file ALLERGIES No Known Allergies Review of Systems Constitutional: Negative for chills and fever. Respiratory: Negative for shortness of breath. Cardiovascular: Negative for chest pain. Gastrointestinal: Positive for abdominal pain, constipation and nausea. Negative for diarrhea and vomiting. Genitourinary: Negative for dysuria, flank pain and hematuria. Musculoskeletal: Negative for back pain. Neurological: Negative for weakness and numbness. Psychiatric/Behavior al: Negative for agitation and confusion. Physical Exam Vitals [10/06/23 1627] BP Pulse Temp Temp src Resp SpO2 Weight Height 113/86 89 36.8 ?C (98.2 ?F) Temporal 16 100 % 63.5 kg (140 lb) 1.778 m (5' 10) Physical Exam Vitals and nursing note reviewed. Exam conducted with a optical systems engineer present. Constitutional: Appearance: She is not toxic-appearing or diaphoretic. HENT: Head: Normocephalic and atraumatic. Eyes: Conjunctiva/sclera: Conjunctivae normal. Cardiovascular: Rate and Rhythm: Normal rate and regular rhythm. Pulses: Normal pulses. Pulmonary: Effort: Pulmonary effort is normal. Breath sounds: Normal breath sounds. Abdominal: General: Abdomen is flat. Bowel sounds are normal. Tenderness: There is abdominal tenderness in the right lower quadrant and left lower quadrant. There is no right CVA tenderness or left CVA tenderness. Genitourinary: Rectum: No tenderness or external hemorrhoid. Normal anal tone. Comments: No stool in rectum. No fecal impaction. Skin: General: Skin is warm and dry. Capillary Refill: Capillary refill takes less than 2 seconds. Neurological: General: No focal deficit present. Mental Status: She is alert and oriented to person, place, and time. GCS: GCS eye subscore is 4. GCS verbal subscore is 5. GCS motor subscore is 6. Psychiatric: Mood and Affect: Mood normal. Behavior: Behavior normal. Diagnostic Testing ED Labs Ordered and Reviewed BASIC METABOLIC PANEL - Abnormal; Notable for the following components: Result Value Ref Range Glucose 113 (*) 74 - 99 mg/dL All other components within normal limits COMPLETE BLOOD COUNT AND DIFFERENTIAL - Abnormal; Notable for the following components: WBC 11.12 (*) 3.70 - 11.00 k/uL Hematocrit 47.2 (*) 36.0 - 46.0 % Abs Neut 8.54 (*) 1.45 - 7.50 k/uL Abs [place] 1.16 (*) <0.87 k/uL All other components within normal limits URINALYSIS WITH MICROSCOPIC, REFLEX CULTURE - Abnormal; Notable for the following components: Specific [place], Ur <=1.005 (*) 1.005 - 1.030 Bacteria Rare (*) None Seen /HPF All other components within normal limits LIPASE - Normal HCG, QUALITATIVE, URINE - Normal Procedures ED Course / Clinical Impression Clinical Impressions as of 10/06/231944 Colitis Constipation, unspecified constipation type MDM / Disposition / Plan With the patient's lower abdominal pain and constipation, we discussed obtaining labs and CT imaging. Patient is agreeable with plan. Labs Reviewed BASIC METABOLIC PANEL - Abnormal; Notable for the following components: Glucose 113 (*) All other components within normal limits COMPLETE BLOOD COUNT AND DIFFERENTIAL - Abnormal; Notable for the following components: WBC 11.12 (*) Hematocrit 47.2 (*) Abs Neut 8.54 (*) Abs [place] 1.16 (*) All other components within normal limits L (more content not included)... Normal [facility] HCG Preg Ur Qlon 10-06-2023 HCG ( test) Ql (U) Negative Normal Negative [facility] Comment on above: Order Comment: Speci men Type: BLOOD SPECIMEN Ordering Facility: [facility] Address: [address] [place] [address] Result Comment: This test is intended to aid in the early detection of . Very dilute urine samples, as indicated by a low specific gravity, may not contain food service representative levels of hCG. This test detects intact hCG only. This test does not reliably detect hCG degradation products, including free-beta subunit and beta-core fragment. Therefore, this test may show reduced reactivity in urine after 8 weeks gestation. A number of conditions other than , including trophoblastic disease and certain non-trophoblastic neoplasms cause elevated levels of hCG. As with any assay employing mouse antibodies, the possibility exists for interference by human anti-mouse antibodies (HAMA) in the specimen. The test provides a presumptive diagnosis for . Performed By: #### 5 8410-2 #### [facility] CLIA [id number] [address] [place] [address] [facility] [place] Lipase SerPl-cCncon 10-06-19 24 Lipase [Catalytic activity/Vol] 23 U/L Normal 16-61 [facility] Comment on above: Order Comment: Speci men Type: BLOOD SPECIMEN Ordering Facility: [facility] Address: [address] [place] [address] Performed By: #### 2 4321-2, 3040-3 #### [facility] CLIA [id number] [address] [place] [address] OF [place] Urinalysis complete panel (U )on 10-06-2023 Bacteria LM.HPF (Urine sed) [#/Area] Rare Abnormal None Seen [facility] Comment on above: Order Comment: Speci men Type: BLOOD SPECIMEN Ordering Facility: [facility] Address: [address] [place] [address] Performed By: #### H STNT #### [facility] CLIA [id number] [address] [place] [address] Bilirubin Ql (U) Negative Normal Negative [facility] Comment on above: Order Comment: Speci men Type: BLOOD SPECIMEN Ordering Facility: [facility] Address: [facility] [place] [address] Performed By: #### H STNT #### [facility] CLIA [id number] [address] [place] [address] [facility] Clarity (Unsp spec) Clear Normal Clear [facility] Comment on above: Order Comment: Speci men Type: BLOOD SPECIMEN Ordering Facility: [facility] Address: [address] [place] [address] Performed By: #### H STNT #### [facility] CLIA [id number] [address] [place] [address] [facility] Color (U) Yellow Normal Yellow [facility] Comment on above: Order Comment: Speci men Type: BLOOD SPECIMEN Ordering Facility: [facility] Address: [address] [place] [address] Performed By: #### H STNT #### [facility] CLIA [id number] [address] [place] [address] [facility] [place] Epithelial cells LM.HPF (Urine sed) [#/Area] Few Normal [facility] Comment on above: Order Comment: Speci men Type: BLOOD SPECIMEN Ordering Facility: [facility] Address: [address] [place] [address] Performed By: #### H STNT #### [facility] CLIA [id number] [address] [place] [address] [facility] Glucose Test strip (U) [Mass/Vol] Negative Normal Negative [facility] Comment on above: Order Comment: Speci men Type: BLOOD SPECIMEN Ordering Facility: [facility] Address: [address] [place] [address] Performed By: #### H STNT #### [facility] CLIA [id number] [address] [place] [address] [facility] [place] Hemoglobin Ql (U) Negative Normal Negative [facility] Comment on above: Order Comment: Speci men Type: BLOOD SPECIMEN Ordering Facility: [facility] Address: [address] [place] [address] Performed By: #### H STNT #### [facility] CLIA [id number] [address] [place] [address] [facility] [place] Ketones Ql (U) Negative Normal Negative [facility] Comment on above: Order Comment: Speci men Type: BLOOD SPECIMEN Ordering Facility: [facility] Address: [address] [place] [address] Performed By: #### H STNT #### [facility] CLIA [id number] [address] [place] [address] [facility] Leukocyte esterase Test strip Ql (U) Negative Normal Negative [facility] Comment on above: Order Comment: Speci men Type: BLOOD SPECIMEN Ordering Facility: [facility] Address: [address] [place] [address] Performed By: #### H STNT #### [facility] CLIA [id number] [address] [place] [address] [place] Nitrite Ql (U) Negative Normal Negative [facility] Comment on above: Order Comment: Speci men Type: BLOOD SPECIMEN Ordering Facility: [facility] Address: [address] [place] [address] Performed By: #### H STNT #### [facility] CLIA [id number] [address] [place] [address] [place] pH (U) 6.0 [pH] Normal 5.0-8.0 [facility] Comment on above: Order Comment: Speci men Type: BLOOD SPECIMEN Ordering Facility: [facility] Address: [address] [place] [address] Performed By: #### H STNT #### [facility] CLIA [id number] [address] [place] [address] [place] Protein (U) [Mass/Vol] Negative Normal Negative [facility] Comment on above: Order Comment: Speci men Type: BLOOD SPECIMEN Ordering Facility: [facility] Address: [address] [place] [address] Performed By: #### H STNT #### [facility] CLIA [id number] [address] [place] [address] [place] RBC LM.HPF (Urine sed) [#/Area] 0-3 /HPF Normal 0-3 /HPF [facility] Comment on above: Order Comment: Speci men Type: BLOOD SPECIMEN Ordering Facility: [facility] Address: [address] [place] [address] Performed By: #### H STNT #### [facility] CLIA [id number] [address] [place] [address] [place] Specific gravity (U) [Rel density] <=1.005 Low 1.005-1.030 [facility] Comment on above: Order Comment: Speci men Type: BLOOD SPECIMEN Ordering Facility: [facility] Address: [address] [place] [address] Performed By: #### H STNT #### [facility] CLIA [id number] [address] [place] [address] [place] Urobilinogen Ql (U) 0.2 EU/dL Normal 0.2-1.0 EU/dL [facility] Comment on above: Order Comment: Speci men Type: BLOOD SPECIMEN Ordering Facility: [facility] Address: [address] [place] [address] Performed By: #### H STNT #### [facility] CLIA [id number] [address] [place] [address] [place] WBC LM.HPF (Urine sed) [#/Area] 0-5 /HPF Normal 0-5 /HPF [facility] Comment on above: Order Comment: Speci men Type: BLOOD SPECIMEN Ordering Facility: [facility] Address: [address] [place] [address] Performed By: #### H STNT #### [facility] CLIA [id number] [address] [place], [place] [address] [place] Basic metabolic 2000 panelon 07-10-2023 Anion gap [Moles/Vol] 13 mmol/L Normal 9-18 [facility] Comment on above: Order Comment: Speci men Type: BLOOD SPECIMEN Ordering Facility: [facility] Address: [address] [place] [address] Performed By: #### 5 8410-2 #### [facility] CLIA [id number] [address] [place] [address] [place] Calcium [Mass/Vol] 8.2 mg/dL Low 8.5-10.2 [facility] Comment on above: Order Comment: Speci men Type: BLOOD SPECIMEN Ordering Facility: [facility] Address: [address] [place] [address] Performed By: #### 5 8410-2 #### [facility] CLIA [id number] [address] [place] [address] [place] Chloride [Moles/Vol] 96 mmol/L Low 97-105 [facility] Comment on above: Order Comment: Specbhavesh pelayo Type: BLOOD SPECIMEN Ordering Facility: [facility] Address: [address] [place] [address] Performed By: #### 5 8410-2 #### [facility] CLIA [id number] [address] [place] [address] [place] CO2 [Moles/Vol] 20 mmol/L Low 22-30 [facility] Comment on above: Order Comment: Bryce pelayo Type: BLOOD SPECIMEN Ordering Facility: [facility] Address: [address] [place] [address] Performed By: #### 5 8410-2 #### [facility] CLIA [id number] [address] [place] [address] OF [facility] Creatinine [Mass/Vol] 0.65 mg/dL Normal 0.58-0.96 [facility] Comment on above: Order Comment: Bryce pelayo Type: BLOOD SPECIMEN Ordering Facility: [facility] Address: [address] [place] [address] Performed By: #### 5 8410-2 #### [facility] CLIA [id number] [address] Creatinine and Glomerular filtration rate.predicted panel (S/P/Bld) 126 mL/min/1.73m??? Normal >=60 [facility] Comment on above: Order Comment: Speci men Type: BLOOD SPECIMEN Ordering Facility: [facility] Address: [address] [place] [address] Result Comment: Vicky mated Glomerular Filtration Rate (eGFR) is calculated using the 2020 CKD-EPI creatinine equation. This equation utilizes serum creatinine, sex, and age as parameters. The creatinine assay has traceable calibration to isotope dilution-mass spectrometry. Refer to KDIGO guidelines for clinical interpretation. In patients with unstable renal function, e.g. those with acute kidney injury, the eGFR may not accurately reflect actual GFR. Performed By: #### 5 8410-2 #### [facility] CLIA [id number] [address] [place] [address] [place] Glucose [Mass/Vol] 217 mg/dL High 74-99 [facility] Comment on above: Order Comment: Bryce pelayo Type: BLOOD SPECIMEN Ordering Facility: [facility] Address: [address] [place] [address] Result Comment: The [place] Diabetes Association (ADA) provides guidance for cutoff values for fasting glucose and random glucose. The ADA defines fasting as no caloric intake for at least 8 hours. Fasting plasma glucose results between 100 to 125 mg/dL indicate increased risk for diabetes (prediabetes). Fasting plasma glucose results greater than or equal to 126 mg/dL meet the criteria for diagnosis of diabetes. In the absence of unequivocal hyperglycemia, results should be confirmed by repeat testing. In a patient with classic symptoms of hyperglycemia or hyperglycemic crisis, random plasma glucose results greater than or equal to 200 mg/dL meet the criteria for diagnosis of diabetes. Reference: Standards of Medical Care in Diabetes 2016, [place] [employer] Association. Diabetes Care. 2016.39(Suppl 1). Performed By: #### 5 8410-2 #### [facility] CLIA [id number] [address] [place] [address] [place] Potassium [Moles/Vol] 3.4 mmol/L Low 3.7-5.1 [facility] Comment on above: Order Comment: Bryce pelayo Type: BLOOD SPECIMEN Ordering Facility: [facility] Address: [address] [place] [id number] Performed By: #### 5 8410-2 #### [facility] CLIA [id number] [address] [place] [address] [place] Sodium [Moles/Vol] 129 mmol/L Low 136-144 [facility] Comment on above: Order Comment: Bryce pelayo Type: BLOOD SPECIMEN Ordering Facility: [facility] Address: [address] [place] [address] Performed By: #### 5 8410-2 #### [facility] CLIA [id number] [address] [place] [address] [place] Urea nitrogen [Mass/Vol] 8 mg/dL Normal 7-21 [facility] Comment on above: Order Comment: Speci men Type: BLOOD SPECIMEN Ordering Facility: [facility] Address: [address] [place] [address] Performed By: #### 5 8410-2 #### [facility] CLIA [id number] [address] [place] [id number] [place] [facility] CBC panel Auto (Bld)on 07-09 Erythrocyte distribution width (RBC) [Ratio] 13.6 % Normal 11.5-15.0 [facility] Comment on above: Order Comment: Speci men Type: BLOOD SPECIMEN Ordering Facility: [facility] Address: [address] [place] [address] Performed By: #### 5 8410-2 #### [facility] CLIA [id number] [address] [place] [address] [place] Hematocrit (Bld) [Volume fraction] 33.4 % Low 36.0-46.0 [facility] Comment on above: Order Comment: Speci men Type: BLOOD SPECIMEN Ordering Facility: [facility] Address: [address] [place] [address] Performed By: #### 5 8410-2 #### [facility] CLIA [id number] [address] [place] [address] [place] Hemoglobin (Bld) [Mass/Vol] 10.6 g/dL Low 11.5-15.5 [facility] Comment on above: Order Comment: Speci men Type: BLOOD SPECIMEN Ordering Facility: [facility] Address: [address] [place] [address] Performed By: #### 5 8410-2 #### [facility] CLIA [id number] [address] [place] [address] [place] MCH (RBC) [Entitic mass] 30.3 pg Normal 26.0-34.0 [facility] Comment on above: Order Comment: Speci men Type: BLOOD SPECIMEN Ordering Facility: [facility] Address: [address] [place] [address] Performed By: #### 5 8410-2 #### [facility] CLIA [id number] [address] [place] [address] [place] MCHC (RBC) [Mass/Vol] 31.7 g/dL Normal 30.5-36.0 [facility] Comment on above: Order Comment: Speci men Type: BLOOD SPECIMEN Ordering Facility: [facility] Address: [address] [place] [address] Performed By: #### 5 8410-2 #### [facility] CLIA [id number] [address] [place] [address] [place] MCV (RBC) [Entitic vol] 95.4 fL Normal 80.0-100.0 [facility] Comment on above: Order Comment: Speci men Type: BLOOD SPECIMEN Ordering Facility: [facility] Address: [address] [place] [address] Performed By: #### 5 8410-2 #### [facility] CLIA [id number] [address] [place], [place] [id number] [place] [address] [place] Platelet mean volume (Bld) [Entitic vol] 10.1 fL Normal 9.0-12.7 [facility] Comment on above: Order Comment: Speci men Type: BLOOD SPECIMEN Ordering Facility: [facility] Address: [address] [place] [address] Performed By: #### 5 8410-2 #### [facility] CLIA [id number] [address] [place] [address] [place] Platelets (Bld) [#/Vol] 194 10*3/uL Normal 150-400 [facility] Comment on above: Order Comment: Speci men Type: BLOOD SPECIMEN Ordering Facility: [facility] Address: [address] [place] [address] Performed By: #### 5 8410-2 #### [facility] CLIA [id number] [address] [place] [address] [place] RBC (Bld) [#/Vol] 3.50 10*6/uL Low 3.90-5.20 [facility] Comment on above: Order Comment: Speci men Type: BLOOD SPECIMEN Ordering Facility: [facility] Address: [address] [place] [address] Performed By: #### 5 8410-2 #### [facility] CLIA [id number] [address] [place] [address] [place] WBC (Bld) [#/Vol] 10.86 10*3/uL Normal 3.70-11.00 [facility] Comment on above: Order Comment: Speci men Type: BLOOD SPECIMEN Ordering Facility: [facility] Address: [address] [place] [address] Performed By: #### 5 8410-2 #### [facility] CLIA [id number] [address] [place] Erythrocyte distribution width (RBC) [Ratio] 13.8 % Normal 11.5-15.0 [facility] Comment on above: Order Comment: Speci men Type: BLOOD SPECIMEN Ordering Facility: [facility] Address: [address] [place] [address] Performed By: #### 5 8410-2 #### [facility] CLIA [id number] [address] [place] Hematocrit (Bld) [Volume fraction] 35.7 % Low 36.0-46.0 [facility] Comment on above: Order Comment: Speci men Type: BLOOD SPECIMEN Ordering Facility: [facility] Address: [address] [place] [address] Performed By: #### 5 8410-2 #### [facility] CLIA [id number] [address] [place] [address] [place] Hemoglobin (Bld) [Mass/Vol] 11.2 g/dL Low 11.5-15.5 [facility] Comment on above: Order Comment: Speci men Type: BLOOD SPECIMEN Ordering Facility: [facility] Address: [address] [place] [address] Performed By: #### 5 8410-2 #### [facility] CLIA [id number] [address] [place] [id number] [place] [address] MCH (RBC) [Entitic mass] 30.2 pg Normal 26.0-34.0 [facility] Comment on above: Order Comment: Speci men Type: BLOOD SPECIMEN Ordering Facility: [facility] Address: [address] [place] [address] Performed By: #### 5 8410-2 #### [facility] CLIA [id number] [address] [place] MCHC (RBC) [Mass/Vol] 31.4 g/dL Normal 30.5-36.0 [facility] Comment on above: Order Comment: Speci men Type: BLOOD SPECIMEN Ordering Facility: [facility] Address: [address] [place] [address] Performed By: #### 5 8410-2 #### [facility] CLIA [id number] [address] [place] [address] [place] MCV (RBC) [Entitic vol] 96.2 fL Normal 80.0-100.0 [facility] Comment on above: Order Comment: Speci men Type: BLOOD SPECIMEN Ordering Facility: [facility] Address: [address] [place] [address] Performed By: #### 5 8410-2 #### [facility] CLIA [id number] [address] [place], [place] [id number] [place] [address] [place] Platelet mean volume (Bld) [Entitic vol] 10.7 fL Normal 9.0-12.7 [facility] Comment on above: Order Comment: Speci men Type: BLOOD SPECIMEN Ordering Facility: [facility] Address: [address] [place] [address] Performed By: #### 5 8410-2 #### [facility] CLIA [id number] [address] [place] [address] [facility] Platelets (Bld) [#/Vol] 188 10*3/uL Normal 150-400 [facility] Comment on above: Order Comment: Specbhavesh pelayo Type: BLOOD SPECIMEN Ordering Facility: [facility] Address: [address] [place] [address] Performed By: #### 5 8410-2 #### [facility] CLIA [id number] [address] [place] [address] [place] RBC (Bld) [#/Vol] 3.71 10*6/uL Low 3.90-5.20 [facility] Comment on above: Order Comment: Speci men Type: BLOOD SPECIMEN Ordering Facility: [facility] Address: [address] [place] [address] Performed By: #### 5 8410-2 #### [facility] CLIA [id number] [address] WBC (Bld) [#/Vol] 11.42 10*3/uL High 3.70-11.00 [facility] Comment on above: Order Comment: Speci men Type: BLOOD SPECIMEN Ordering Facility: [facility] Address: [address] [place] [address] Performed By: #### 5 8410-2 #### [facility] CLIA [id number] [address] [place] [address] [facility] CNCOon 07-10-2023 CNCO Letter Text Normal [facility] CNDSon 07-10-2023 CNDS HNO ID: [id number] Author: ROMAIN GALICIA MD Service: Hospital Medicine Author Type: Nurse Practitioner Type: Discharge Summary Filed: 07/18/2023 11:40 Note Text: Attestation signed by Romain Galicia MD at 07/18/2023 11:40 AM I have reviewed the DC summary and agree with all the outlined elements. Romain Galicia MD DISCHARGE NOTE (Patient Admitted Less than 48 Hours) SERVICE DATE: 07/10/2023 SERVICE TIME: 12:43 PM ADMISSION DATE: 07/09/2023 DISCHARGE DISPOSITION: Home with self care Hospital Course: This is a 23 year old female, presented to [place] ED with c/o flank pain and nausea. Symptoms began several days prior. She was seen outpatient and diagnosed with UTI and started on ciprofloxacin. On admission day, reported worsening pain to lower back and bilateral flank areas, R > L. Denies any fever or chills. No dysuria or hematuria. No vomiting or abdominal pain. She did endorse some mild constipation. Work up in the ED: CT abd/pelvis showed regions of relative decreased enhancement at the upper and mid portions of the right kidney suspicious for pyelonephritis. No adrenal abscess. No evidence of urinary tract calculi. No hydronephrosis. Subtle urothelial enhancement of the right renal pelvis and proximal ureter as may be seen with inflammation/infecti on. 2.6 cm fluid attenuation mass in the spleen superiorly is likely a cyst or hemangioma. Splenomegaly noted. 3.8 x 3.2 cm cystic structure in the left adnexa is likely a functional cyst. Labs remarkable for WBC 18.55; ANC 15.83; AST/ALT 40/50; UA showed WBC 11-25 and few bacteria. Urine culture pending. Started on Rocephin and received fluid bolus. EKG showed sinus tachycardia. HSTNT normal. Admitted under hospitalist service for management for pyelonephritis. She rapidly improved with IVF and IV antibiotics ceftriaxone. She reported feeling nearly back to baseline aside from mild right flank pain. Leukocytosis and tachycardia improved. The patient was asking to go home. Will discharge her on oral course of cefdinir given rapid improvement in symptoms with ceftriaxone. She understands that if urine culture returns with multi drug resistant organism or blood cultures return positive then she will need to return to the hospital. She was instructed to stay well hydrated and follow up with PCP in 1-2 week. She can take PRN tylenol and or ibuprofen as instructed on the bottle. Discharge Physical Exam: VITAL SIGNS: BP 122/74 Pulse 109 Temp 37.3 ?C (99.2 ?F) (Oral) Resp 16 Ht 177.8 cm (5' 10) Wt 63.3 kg (139 lb 8.8 oz) SpO2 99% BMI 20.02 kg/m? GENERAL: Alert, no distress, cooperative SKIN: Multiple scabbed over lesions from picking, does not appear infected HEAD/SINUSES: No significant findings. AT/NC EYES: EOMI OROPHARYNX: MMM BACK: Back symmetric, Normal curvature, ROM normal, + R CVAT. LUNGS: Lungs clear to auscultation, good diaphragmatic excursion CARDIAC: Normal S1 and S2; no rubs, murmurs, or gallops ABDOMEN: Abdomen soft, non-tender, BS normal EXTREMITIES: Extremities normal, no deformities, edema, clubbing or skin discoloration. DIET: Regular ACTIVITY AFTER DISCHARGE: Resume pre-hospital activity FOLLOW UP CARE REQUIRED: PCP in 1-2 weeks DISCHARGE MEDICATIONS: Medication List START taking these medications cefdinir 300 mg capsule Commonly known as: OMNICEF Take 1 capsule by mouth two times a day for 13 days. Patient should start on July 11, 2023. Start taking on: July 11, 2023 CONTINUE taking these medications * buPROPion XL 300 mg 24 hr tablet Commonly known as: WELLBUTRIN XL * buPROPion SR 100 mg 12 hr tablet Commonly known as: WELLBUTRIN SR Take 1 tablet by mouth twice daily. SeroqueL 100 mg tablet Generic drug: QUEtiapine * This list has 2 medication(s) that are the same as other medications prescribed for you. Read the directions carefully, and ask your doctor or other care provider to review them with you. STOP taking these medications ciprofloxacin HCl 250 mg tablet Commonly known as: CIPRO Where to Get Your Medications These medications were sent to e- [facility]/pharmacy [id number] [address] [address] [facility] [phone] [facility] [address] [address] cefdinir 300 mg capsule FINAL DIAGNOSIS: Right pyelonephritis Plan of care discussed with Provider, RN, Patient and Care Management SIGNATURE: Shiv Ziegler APRN.CNP PATIENT NAME: Saran Mendez DATE: July 10, 2023 TIME: 12:42 PM Normal [facility] Comprehensive metabolic 2000 panelon 07-10-2023 Albumin [Mass/Vol] 3.1 g/dL Low 3.9-4.9 [facility] Comment on above: Order Comment: Speci men Type: BLOOD SPECIMEN Ordering Facility: [facility] Address: [address] [place] [address] Performed By: #### H STNT #### [facility] CLIA [id number] [address] [place], [place] [id number] [place] [address] [place] ALP [Catalytic activity/Vol] 129 U/L High 34-123 [facility] Comment on above: Order Comment: Speci men Type: BLOOD SPECIMEN Ordering Facility: [facility] Address: [address] [place] [address] Performed By: #### H STNT #### [facility] CLIA [id number] [address] [place] [address] [place] ALT With P-5'-P [Catalytic activity/Vol] 39 U/L High 7-38 [facility] Comment on above: Order Comment: Speci men Type: BLOOD SPECIMEN Ordering Facility: [facility] Address: [address] [place] [address] Performed By: #### H STNT #### [facility] CLIA [id number] [address] [place] [address] [place] Anion gap [Moles/Vol] 10 mmol/L Normal 9-18 [facility] Comment on above: Order Comment: Speci men Type: BLOOD SPECIMEN Ordering Facility: [facility] Address: [address] [place] [address] Performed By: #### H STNT #### [facility] CLIA [id number] [address] [place] [address] [place] AST With P-5'-P [Catalytic activity/Vol] 26 U/L Normal 13-35 [facility] Comment on above: Order Comment: Speci men Type: BLOOD SPECIMEN Ordering Facility: [facility] Address: [address] [place] [address] Performed By: #### H STNT #### [facility] CLIA [id number] [address] [place] [address] [place] Bilirubin [Mass/Vol] 0.5 mg/dL Normal 0.2-1.3 [facility] Comment on above: Order Comment: Speci men Type: BLOOD SPECIMEN Ordering Facility: [facility] Address: [address] [place] [address] Performed By: #### H STNT #### [facility] CLIA [id number] [address] [place] [address] [place] Calcium [Mass/Vol] 8.5 mg/dL Normal 8.5-10.2 [facility] Comment on above: Order Comment: Speci men Type: BLOOD SPECIMEN Ordering Facility: [facility] Address: [address] [place] [address] Performed By: #### H STNT #### [facility] CLIA [id number] [address] [place] [address] [place] Chloride [Moles/Vol] 104 mmol/L Normal 97-105 [facility] Comment on above: Order Comment: Speci men Type: BLOOD SPECIMEN Ordering Facility: [facility] Address: [address] [place] [address] Performed By: #### H STNT #### [facility] CLIA [id number] [address] [place] [address] [place] CO2 [Moles/Vol] 22 mmol/L Normal 22-30 [facility] Comment on above: Order Comment: Speci men Type: BLOOD SPECIMEN Ordering Facility: [facility] Address: [address] [place] [address] Performed By: #### H STNT #### [facility] CLIA [id number] [address] [place] [address] [place] Creatinine [Mass/Vol] 0.69 mg/dL Normal 0.58-0.96 [facility] Comment on above: Order Comment: Bryce pelayo Type: BLOOD SPECIMEN Ordering Facility: [facility] Address: [address] [place] [address] Performed By: #### H STNT #### [facility] CLIA [id number] [address] [place] [address] [facility] Creatinine and Glomerular filtration rate.predicted panel (S/P/Bld) 124 mL/min/1.73m??? Normal >=60 [facility] Comment on above: Order Comment: Bryce pelayo Type: BLOOD SPECIMEN Ordering Facility: [facility] Address: [address] [place] [address] Result Comment: Vicky mated Glomerular Filtration Rate (eGFR) is calculated using the 2020 CKD-EPI creatinine equation. This equation utilizes serum creatinine, sex, and age as parameters. The creatinine assay has traceable calibration to isotope dilution-mass spectrometry. Refer to KDIGO guidelines for clinical interpretation. In patients with unstable renal function, e.g. those with acute kidney injury, the eGFR may not accurately reflect actual GFR. Performed By: #### H STNT #### [facility] CLIA [id number] [address] [place], [place] [id number] [place] Glucose [Mass/Vol] 116 mg/dL High 74-99 [facility] Comment on above: Order Comment: Bryce pelayo Type: BLOOD SPECIMEN Ordering Facility: [facility] Address: [address] [place] [address] Result Comment: The [place] Diabetes Association (ADA) provides guidance for cutoff values for fasting glucose and random glucose. The ADA defines fasting as no caloric intake for at least 8 hours. Fasting plasma glucose results between 100 to 125 mg/dL indicate increased risk for diabetes (prediabetes). Fasting plasma glucose results greater than or equal to 126 mg/dL meet the criteria for diagnosis of diabetes. In the absence of unequivocal hyperglycemia, results should be confirmed by repeat testing. In a patient with classic symptoms of hyperglycemia or hyperglycemic crisis, random plasma glucose results greater than or equal to 200 mg/dL meet the criteria for diagnosis of diabetes. Reference: Standards of Medical Care in Diabetes 2016, [place] [employer] Association. Diabetes Care. 2016.39(Suppl 1). Performed By: #### H STNT #### [facility] [place] [facility] CLIA [id number] [address] [place] [address] [place] Potassium [Moles/Vol] 4.2 mmol/L Normal 3.7-5.1 [facility] Comment on above: Order Comment: Speci men Type: BLOOD SPECIMEN Ordering Facility: [facility] Address: [address] [place] [address] Performed By: #### H STNT #### [facility] [place] [facility] CLIA [id number] [address] [place] [address] [place] Protein [Mass/Vol] 5.8 g/dL Low 6.3-8.0 [facility] Comment on above: Order Comment: Speci men Type: BLOOD SPECIMEN Ordering Facility: [facility] Address: [address] [place] [address] Performed By: #### H STNT #### [facility] [place] [facility] CLIA [id number] [address] [place] [address] [place] Sodium [Moles/Vol] 136 mmol/L Normal 136-144 [facility] Comment on above: Order Comment: Speci men Type: BLOOD SPECIMEN Ordering Facility: [facility] Address: [address] [place] [address] Performed By: #### H STNT #### [facility] [place] [facility] CLIA [id number] [address] [place] [address] [place] Urea nitrogen [Mass/Vol] 13 mg/dL Normal 7-21 [facility] Comment on above: Order Comment: Myi men Type: BLOOD SPECIMEN Ordering Facility: [facility] Address: [address] [place] [address] Performed By: #### H STNT #### [facility] [place] [facility] CLIA [id number] [address] [place] [address] [place] ECG COMPLETEon 07-10-2023 ECG COMPLETE Ventricular Rate : 137 BPM Atrial Rate : 137 BPM P-R Interval : 138 ms QRS Duration : 80 ms Q-T Interval : 276 ms QTC Calculation(Bazett) : 416 ms Calculated P [place] : 51 degrees Calculated R [place] : 86 degrees Calculated T [place] : 25 degrees SINUS TACHYCARDIA OTHERWISE NORMAL ECG WHEN COMPARED WITH ECG OF 09-Jul-2023 14:16, NONSPECIFIC T WAVE ABNORMALITY NOW EVIDENT IN INFERIOR LEADS Confirmed by MD CANTRELL VINAYAK ([id number]) on 07/11/2023 8:49:26 PM NAME : SARAN MENDEZ PID : [id number] : 2000 Gender : Female Race : ORD : [id number] Procedure Date : Jul 10 2023 20:02:24 Edit Date : Jul 11 2023 20:49:27 Diagnosis: SINUS TACHYCARDIA OTHERWISE NORMAL ECG WHEN COMPARED WITH ECG OF 09-Jul-2023 14:16, NONSPECIFIC T WAVE ABNORMALITY NOW EVIDENT IN INFERIOR LEADS Confirmed by MD CANTRELL VINAYAK ([id number]) on 07/11/2023 8:49:26 PM Test Reason : Chest Pain Location : 150 : [place] [facility] Overread By : MD CANTRELL VINAYAK Edited By : MD CANTRELL VINAYAK Referred By : , Acquired by : JULIA SINGH Normal [facility] ED NOTEon 07-10-2023 ED NOTE HNO ID: [id number] Author: BRI ENNIS RN Service: Emergency Medicine Author Type: Registered Nurse Type: ED Notes Filed: 07/10/2023 19:53 Note Text: Patient was dc from EW a few hours ago dx pyelonephritis. Was supposed to start rx PO antibiotics tomorrow. Returns to ER c/o kidney pain also feeling hot and sweaty with tightness in chest, nausea. Symptoms started 45 minutes after leaving the hospital. Patient did not take anything for pain, fever prior to arrival. Normal [facility] ED PROV NOTEon 07-10-2023 ED PROV NOTE HNO ID: [id number] Author: STEFFANY VAZQUEZ MD Service: Emergency Medicine Author Type: Physician Type: ED Provider Notes Filed: 07/10/2023 21:49 Note Text: ED Provider Note Patient Name: Saran Mendez : 2000 SERVICE DATE: 07/10/23 History Patient presents with: Back Pain Sraan Mendez is a 23 year old female with history of pyelonephritis discharged from the hospital today who presents with right flank back pain history of pyelonephritis. Patient is without red flag history. - Symptoms began 45 minutes prior to arrival. Onset was gradual. - Severity: moderate - Timing: constant - Quality: cramping - Pain is exacerbated by movement. Pain radiates to right lower abdomen. - Pain is not exacerbated by deep breath. - Symptoms are associated with fever nausea generalized malaise - Symptoms are not associated with urinary symptoms. - Improved by nothing. - Not Improved by has not taken anything Patient was diagnosed with pyelonephritis yesterday she is admitted to the hospital overnight had IV antibiotics was feeling much better around noon today and wanted to go home she was discharged to home after receiving IV antibiotic this morning and is supposed to start Omnicef tomorrow. Her blood cultures are no growth x 1 day and urine culture did not show any specific organisms. After getting home patient started feeling ill complain of feeling chilled and hot she did not take any Tylenol or ibuprofen. She also says that she is feeling some chest tightness and feeling sweaty and hot.. Review of old records shows that she does tend to have some slight tachycardia even when she is not febrile. History reviewed. No pertinent past medical history. PAST SURGICAL HISTORY Procedure Laterality Date TONSILLECTOMY HX No family history on file. Social History Tobacco Use Smoking status: Every Day Packs/day: .25 Types: Cigarettes Passive exposure: Current Smokeless tobacco: Never Vaping Use Vaping Use: current everyday user Substances: Nicotine Substance and Sexual Activity Alcohol use: No Drug use: Not Currently Frequency: 4.0 times per week Types: Marijuana, Amphetamines Sexual activity: Not on file ALLERGIES No Known Allergies Review of Systems Constitutional: Positive for chills, fatigue and fever. HENT: Negative for congestion, sore throat and trouble swallowing. Respiratory: Negative for cough and shortness of breath. Cardiovascular: Negative for chest pain and palpitations. Gastrointestinal: Positive for nausea. Negative for abdominal pain, diarrhea and vomiting. Genitourinary: Positive for flank pain. Negative for dysuria. Musculoskeletal: Positive for back pain. Negative for neck pain. Neurological: Negative for syncope and light-headedness. Psychiatric/Behavior al: Negative for confusion. The patient is nervous/anxious. Physical Exam Vitals BP Pulse Temp Temp src Resp SpO2 Weight Height -- -- -- -- -- -- -- -- Physical Exam Vitals and nursing note reviewed. Constitutional: General: She is not in acute distress. Appearance: Normal appearance. She is normal weight. She is not ill-appearing or toxic-appearing. HENT: Head: Normocephalic and atraumatic. Eyes: Extraocular Movements: Extraocular movements intact. Conjunctiva/sclera: Conjunctivae normal. Cardiovascular: Rate and Rhythm: Regular rhythm. Tachycardia present. Pulses: Normal pulses. Pulmonary: Effort: Pulmonary effort is normal. No respiratory distress. Abdominal: General: There is no distension. Palpations: Abdomen is soft. Tenderness: There is no abdominal tenderness. There is right CVA tenderness. Musculoskeletal: General: No swelling or tenderness. Cervical back: Normal range of motion and neck supple. Skin: General: Skin is warm. Capillary Refill: Capillary refill takes less than 2 seconds. Findings: No rash. Neurological: General: No focal deficit present. Mental Status: She is alert and oriented to person, place, and time. Gait: Gait normal. Psychiatric: Mood and Affect: Mood normal. Behavior: Behavior normal. Thought Content: Thought content normal. Judgment: Judgment normal. Diagnostic Testing ED Labs Ordered and Reviewed - No data to display Procedures ED Course / Clinical Impression Clinical Impressions as of 07/10/23 2148 Pyelonephritis MDM / Disposition / Plan Nontoxic but anxious appearing. Elevated heart rate with fever but cultures so far negative repeat CBC shows significant improvement in the white count. No hypotension. Patient's fever was treated I gave her a fluid bolus and I think the Toradol will also help with her discomfort. She has antibiotics prescribed ready to start tomorrow. Review on the old record shows she has had tachycardia in the past and in fact her heart rate was very similar yesterday when she came in. At this point she may need to continue with ibuprofen and (more content not included)... Normal [facility] HISTORY PHYSICALon 4 HISTORY PHYSICAL HNO ID: [id number] Author: ROMAIN GALICIA MD Service: Hospital Medicine Author Type: Nurse Practitioner Type: H&P Filed: 07/18/2023 11:41 Note Text: Attestation signed by oRmain Galicia MD at 07/18/2023 11:41 AM I have reviewed the chart and data for this patient. Agree with the history and physical, outlined assessment and management plan. I have discussed with ОЛЬГА on an as needed basis. Romain Galicia MD DEPARTMENT OF [facility] MEDICINE HISTORY AND PHYSICAL EXAM SERVICE DATE: 07/10/2023 SERVICE TIME: 12:28 PM Primary Care Physician: Aneta Crabtree MD, MD NIGHT AND WEEKEND COVERAGE: [facility] ОЛЬГА 7am-7pm [phone] pager 7pm-7am Subjective CHIEF COMPLAINT: Right flank pain HPI: This is a 23 year old female, presented to [place] ED with c/o flank pain and nausea. Symptoms began several days prior. She was seen outpatient and diagnosed with UTI and started on ciprofloxacin. On admission day, reported worsening pain to lower back and bilateral flank areas. Denies any fever or chills. No dysuria or hematuria. No vomiting or abdominal pain. She did endorse some mild constipation. Work up in the ED: CT abd/pelvis showed regions of relative decreased enhancement at the upper and mid portions of the right kidney suspicious for pyelonephritis. No adrenal abscess. No evidence of urinary tract calculi. No hydronephrosis. Subtle urothelial enhancement of the right renal pelvis and proximal ureter as may be seen with inflammation/infecti on. 2.6 cm fluid attenuation mass in the spleen superiorly is likely a cyst or hemangioma. Splenomegaly noted. 3.8 x 3.2 cm cystic structure in the left adnexa is likely a functional cyst. Labs remarkable for WBC 18.55; ANC 15.83; AST/ALT 40/50; UA showed WBC 11-25 and few bacteria. Urine culture pending. Started on Rocephin and received fluid bolus. EKG showed sinus tachycardia. HSTNT normal. Admitted under hospitalist service for management for pyelonephritis. No past medical history on file. PAST SURGICAL HISTORY Procedure Laterality Date TONSILLECTOMY HX No family history on file. Social History Tobacco Use Smoking status: Some Days Types: Cigarettes Passive exposure: Current Smokeless tobacco: Never Vaping Use Vaping Use: current everyday user Substances: Nicotine Substance Use Topics Alcohol use: No Drug use: Not Currently Types: Marijuana, Amphetamines PRIOR TO ADMISSION MEDICATIONS: buPROPion XL (WELLBUTRIN XL) 300 mg 24 hr tablet, Take 300 mg by mouth., Disp: , Rfl: , 07/09/2023 QUEtiapine (SEROQUEL) 100 mg tablet, Take 100 mg by mouth daily at bedtime., Disp: , Rfl: , 07/09/2023 [DISCONTINUED] ciprofloxacin HCl (CIPRO) 250 mg tablet, Take 250 mg by mouth., Disp: , Rfl: , 07/09/2023 buPROPion SR (WELLBUTRIN SR) 100 mg 12 hr tablet, Take 1 tablet by mouth twice daily., Disp: 60 tablet, Rfl: 0 [DISCONTINUED] ARIPiprazole (ABILIFY) 5 mg tablet, Take 1 tablet by mouth once daily., Disp: 30 tablet, Rfl: 0 [DISCONTINUED] ergocalciferol 50,000 unit capsule (VITAMIN D2, DRISDOL), Take 1 capsule by mouth one time a week., Disp: 12 capsule, Rfl: 0 [DISCONTINUED] nicotine polacrilex (NICORETTE) 2 mg gum, Take 1 Each by mouth every 2 hours as needed. (Patient not taking: Reported on 07/05/2023), Disp: , Rfl: [DISCONTINUED] venlafaxine ER (EFFEXOR XR) 37.5 mg 24 hr capsule, Take 3 capsules by mouth daily with breakfast., Disp: 90 capsule, Rfl: 0 ALLERGIES No Known Allergies REVIEW OF SYSTEM: GENERAL: No weight loss, malaise or fevers HEENT: Negative for frequent or significant headaches, no acute changes in hearing or vision, no nose bleeds or other nasal problems RESPIRATORY: Negative for cough or shortness of breath CARDIOVASCULAR: Negative for chest pain or palpitations GI: + Nasuea : No dysuria or hematuria. + Right flank pain MUSCULOSKELETAL: Negative for joint pain or swelling, back pain or muscle pain Objective PHYSICAL EXAM: BP 122/74 Pulse 109 Temp (Src) 99.2 (Oral) Resp 16 Ht 5' 10 (1.78m) Wt 139 lb 8.8 oz (63.3kg) SpO2 99% BMI 20.02 kg/(m2). O2 Therapy: Room Air Physical Exam Performed: GENERAL: Alert, no distress, cooperative SKIN: Multiple scabbed over lesions from picking, does not appear infected HEAD/SINUSES: No significant findings. AT/NC EYES: EOMI OROPHARYNX: MMM BACK: Back symmetric, Normal curvature, ROM normal, + R CVAT. LUNGS: Lungs clear to auscultation, good diaphragmatic excursion CARDIAC: Normal S1 and S2; no rubs, murmurs, or gallops ABDOMEN: Abdomen soft, non-tender, BS normal EXTREMITIES: Extremities normal, no deformities, edema, clubbing or skin discoloration. Lines, Drains, and Airways Line Duration Peripheral 07/09/23 1157 [facility] (more content not included)... Normal [facility] Magnesium SerPl-mCncon 07-09 Magnesium [Mass/Vol] 1.7 mg/dL Normal 1.7-2.3 [facility] Comment on above: Order Comment: Speci men Type: BLOOD SPECIMEN Ordering Facility: [facility] Address: [address] [place] [address] Performed By: #### H STNT #### [facility] CLIA [id number] [address] [place], [place] [id number] [place] NURSING PROGon 07-10-2023 NURSING PROG HNO ID: [id number] Author: FELICITAS SILVER RN Service: Nursing Author Type: Registered Nurse Type: Nursing Progress Note Filed: 07/10/2023 14:38 Note Text: RN reviewed discharge and medications with Pt. Pt had a question regarding work excuse. RN contacted VIKTOR GOTTLIEB regarding work excuse. VIKTOR to upload in [employer]. Pt verbalized understanding and had no further questions at this time. Normal [facility] NUTRITIONon 07-10-2023 NUTRITION HNO ID: [id number] Author: ELADIO CHAVEZ RD Service: Nutrition Therapy Author Type: Registered Dietitian Type: Nutrition Filed: 07/10/2023 10:15 Note Text: NUTRITION THERAPY INITIAL ASSESSMENT SERVICE DATE: 07/10/2023 SERVICE TIME: 9:00 am Nutrition Assessment: Recommended Malnutrition Diagnosis: Mild Protein-Calorie Malnutrition In the context of: Acute Illness or Injury Based on: Insufficient Energy Intake Nutrition Diagnosis: Problem: Suboptimal oral intake Related to: Acute illness As evidenced by: Food/nutrition related history, Intake records, Patient/family self-report, Medical condition Estimated kilocalorie needs: 2777-1188 Calorie Calculation Method: 25-30 kcals/kg Estimated protein needs (grams): 63-95 Grams protein determined by: 1.0 - 1.5 g/kg Care Plan: Continue current diet Supplements: Ensure Plus High Protein (Daily - Total of 350 calories and 20g protein) Vitamins and Minerals: Multivitamin with minerals Medications: Stool softener (as needed) Monitor and Evaluation: Monitor labs, I/Os, vital signs, weight, Monitor fluid/electrolyte balance, Monitor bowel function, Meet greater than 75% of estimated needs Discharge Recommendations: Diet;Oral Supplements Diet: Regular diet Oral Supplements: Daily nutrition supplement or per PO intake / weight trend HPI: This patient is a 23 year old female with a PMHx of bipolar disorder, nicotine use disorder and methamphetamine abuse. The patient presents with flank pain and nausea after being diagnosed with UTI the day prior to admission (admit 07/08) s/p Cipro. Reports pain is worsening. CT ABD/PEL suspicious for pyelonephritis. Admitted for pyelonephritis, currently in observation status. Intake History: Nutrition Intake Prior to Admission: Less than 75% estimated energy needs (Patient reports PO intake and appetite were 'not great' prior to this admission. Reports eating ~1 meal/day of something like a cheeseburger + intermittent snacks. Reports not drinking nutrition supplements prior to this admission.) greater than or equal to 1 month Current Nutrition Intake: Less than 75% estimated energy needs (Patient with 50-100% intake of meals recorded in flowsheet. Reports 100% breakfast intake this AM of breakfast sandwich and water, endorses 50% dinner intake last PM. Reports appetite is 'okay' at this time, tolerating diet. Agreeable to daily supplement) Current Intake Over time: (1 day) Diet Orders (From admission, onward) Start Ordered 07/10/23 1015 DIET SUPPLEMENTS START NOW Question Answer Comment Supplement 1 ENSURE PLUS HIGH PROTEIN VANILLA Supplement 1 Frequency LUNCH 07/10/23 1003 07/09/23 1530 DIET REGULAR START NOW 07/09/23 1526 Anthropometrics: Height: 177.8 cm (5' 10) Weight: 63.3 kg (139 lb 8.8 oz) Dosing Weight: 63.3 kg (139 lb 8.8 oz) Usual Weight: 63.5 kg (140 lb) x the past few months Usual Weight Obtained From: Patient Body mass index is 20.02 kg/m?. Weight change percentage over time: 3.4% weight loss x 10 months - No other weights since 11/2021 Weight Change: Not clinically signficant weight loss Physical Exam: Subcutaneous fat loss: No fat loss Muscle loss: No muscle loss Potential micronutrient deficiency: No deficiency identified Edema/Ascites: No edema GI Symptoms: None (GI WNL per flowsheet. No BM recorded yet - Patient reports last BM was a few days ago. Reports history of intermittent constipation. Reports no chewing/swallowing difficulties at this time.) Stool Amount: Decreased (Reports last BM was a few days ago) Functional Status: Unable to assess Potential Signs of Inflammation: Chronic condition, Hyperglycemia, Hypoalbuminemia, Leukocytosis MNT Billing: $ Initial Assessment: 1-15 minutes SIGNATURE: Eladio Chavez RD PATIENT NAME: Saran Mendez DATE: July 10, 2023 TIME: 10:11 AM Normal [facility] SOCIAL WORKon 07-10-2023 SOCIAL WORK HNO ID: [id number] Author: CARISA ANDERSON LSW Service: Social Work Author Type: Shoe Coverer Type: Social Work Filed: 07/10/2023 11:39 Note Text: Summary: CARLOS rounding SOCIAL WORK PROGRESS NOTE Name: Saran Mendez Checked in with patient. She denies any concerns re: here or DC. Signature: ENA Oreilly Date: July 10, 2023 Time: 11:38 AM Normal [facility] Urinalysis complete panel (U )on 07-10-2023 Bacteria LM.HPF (Urine sed) [#/Area] Few Abnormal None Seen [facility] Comment on above: Order Comment: Speci gita Type: BLOOD SPECIMEN Ordering Facility: [facility] Address: [address] [place] [address] Performed By: #### H STNT #### [facility] CLIA [id number] [address] [place] [address] Bilirubin Ql (U) Negative Normal Negative [facility] Comment on above: Order Comment: Bryce pelayo Type: BLOOD SPECIMEN Ordering Facility: [facility] Address: [address] [place] [address] Performed By: #### H STNT #### [facility] CLIA [id number] [address] Clarity (Unsp spec) Slightly Cloudy Abnormal Clear [facility] Comment on above: Order Comment: Bryce pelayo Type: BLOOD SPECIMEN Ordering Facility: [facility] Address: [facility] [place] [address] Performed By: #### H STNT #### [facility] CLIA [id number] [address] [place] [address] Color (U) Yellow Normal Yellow [facility] Comment on above: Order Comment: Speci men Type: BLOOD SPECIMEN Ordering Facility: [facility] Address: [address] [place] [address] Performed By: #### H STNT #### [facility] CLIA [id number] [address] [place] [address] [place] Epithelial cells LM.HPF (Urine sed) [#/Area] Moderate Normal [facility] Comment on above: Order Comment: Speci men Type: BLOOD SPECIMEN Ordering Facility: [facility] Address: [address] [place] [address] Performed By: #### H STNT #### [facility] CLIA [id number] [address] [place] [address] [facility] Glucose Test strip (U) [Mass/Vol] 1+ Abnormal Negative [facility] Comment on above: Order Comment: Speci men Type: BLOOD SPECIMEN Ordering Facility: [facility] Address: [address] [place] [address] Performed By: #### H STNT #### [facility] CLIA [id number] [address] [place] [address] [facility] [place] Hemoglobin Ql (U) Trace Abnormal Negative [facility] Comment on above: Order Comment: Speci men Type: BLOOD SPECIMEN Ordering Facility: [facility] Address: [address] [place] [address] Performed By: #### H STNT #### [facility] CLIA [id number] [address] [place] [address] [place] Ketones Ql (U) Negative Normal Negative [facility] Comment on above: Order Comment: Speci men Type: BLOOD SPECIMEN Ordering Facility: [facility] Address: [address] [place] [address] Performed By: #### H STNT #### [facility] CLIA [id number] [address] [place] [address] [place] Leukocyte esterase Test strip Ql (U) Negative Normal Negative [facility] Comment on above: Order Comment: Speci men Type: BLOOD SPECIMEN Ordering Facility: [facility] Address: [address] [place] [address] Performed By: #### H STNT #### [facility] CLIA [id number] [address] [place] [address] [place] Nitrite Ql (U) Negative Normal Negative [facility] Comment on above: Order Comment: Speci men Type: BLOOD SPECIMEN Ordering Facility: [facility] Address: [address] [place] [address] Performed By: #### H STNT #### [facility] CLIA [id number] [address] [place] [address] [place] pH (U) 6.0 [pH] Normal 5.0-8.0 [facility] Comment on above: Order Comment: Speci men Type: BLOOD SPECIMEN Ordering Facility: [facility] Address: [address] [place] [address] Performed By: #### H STNT #### [facility] CLIA [id number] [address] [place] [address] [place] Protein (U) [Mass/Vol] Negative Normal Negative [facility] Comment on above: Order Comment: Speci men Type: BLOOD SPECIMEN Ordering Facility: [facility] Address: [address] [place] [address] Performed By: #### H STNT #### [facility] CLIA [id number] [address] [place], [place] [id number] [place] RBC LM.HPF (Urine sed) [#/Area] 0-3 /HPF Normal 0-3 /HPF [facility] Comment on above: Order Comment: Speci men Type: BLOOD SPECIMEN Ordering Facility: [facility] Address: [address] [place] [address] Performed By: #### H STNT #### [facility] CLIA [id number] [address] [place] [address] [place] Specific gravity (U) [Rel density] 1.020 Normal 1.005-1.030 [facility] Comment on above: Order Comment: Speci men Type: BLOOD SPECIMEN Ordering Facility: [facility] Address: [address] [place] [address] Performed By: #### H STNT #### [facility] CLIA [id number] [address] [place] [address] Urobilinogen Ql (U) 0.2 EU/dL Normal 0.2-1.0 EU/dL [facility] Comment on above: Order Comment: Speci men Type: BLOOD SPECIMEN Ordering Facility: [facility] Address: [address] [place] [address] Performed By: #### H STNT #### [facility] CLIA [id number] [address] [place] [address] [place] WBC LM.HPF (Urine sed) [#/Area] 6-10 /HPF Abnormal 0-5 /HPF [facility] Comment on above: Order Comment: Speci men Type: BLOOD SPECIMEN Ordering Facility: [facility] Address: [address] [place] [address] Performed By: #### H STNT #### [facility] CLIA [id number] [address] [place] [address] Yeast.budding LM.HPF (Urine sed) [#/Area] Few Abnormal None Seen [facility] Comment on above: Order Comment: Speci men Type: BLOOD SPECIMEN Ordering Facility: [facility] Address: [address] [place] [address] Performed By: #### H STNT #### [facility] CLIA [id number] [address] [place] [address] [place] ALLIED HEALTHon 07-09-2023 ALLIED HEALTH HNO ID: [id number] Author: MISSY CH RT(R) Service: ? Author Type: Flexographic Press Set Up Operator Type: Allied Health Filed: 07/09/2023 13:44 Note Text: Radiology Service Progress Note DATE OF SERVICE: July 09, 2023 TIME: 1:44 PM PATIENT IDENTITY VERIFICATION COMPLETED USING TWO (2) STANDARD IDENTIFIERS: Name and Date of confirmed by patient verbally. FALL SCREENING: Has the patient had 2 falls in the last year or 1 fall with injury or currently using an Ambulatory Assistive Device (Walker, Cane, Wheelchair, Crutches, etc.)? Emergency Room Patient: Screened in ED PATIENT GENDER DATA: Female. status: : No status: NO. PATIENT RELEVANT IMPLANT DATA REVIEWED: Not Applicable PATIENT PRESENTS WITH AN IMPLANTABLE OR ATTACHED DRAIN CLEANER: No ALLERGIES: Reviewed and unchanged CONTRAST ALLERGY: NO. EXAM: CT -CONTRAST INDUCED NEPHROPATHY RISK FACTORS: Not applicable CREATININE: Creatinine Date Value Ref Range Status 07/09/2023 0.81 0.58 - 0.96 mg/dL Final 08/25/2022 1.14 (H) 0.58 - 0.96 mg/dL Final 11/21/2021 0.80 0.58 - 0.96 mg/dL Final Estimated Glomerular Filtration Rate Date Value Ref Range Status 07/09/2023 104 >=60 mL/min/1.73m? Final Comment: Estimated Glomerular Filtration Rate (eGFR) is calculated using the 2020 CKD-EPI creatinine equation. This equation utilizes serum creatinine, sex, and age as parameters. The creatinine assay has traceable calibration to isotope dilution-mass spectrometry. Refer to KDIGO guidelines for clinical interpretation. In patients with unstable renal function, e.g. those with acute kidney injury, the eGFR may not accurately reflect actual GFR. P.O.C.T. RESULTS: POC done: Yes, See Lab Tab July 09, 2023 TREATMENT: N/A PERIPHERAL IV DATA: Inpatient - refer to LDA documentation RADIOLOGY DEPARTMENT: CT; Exam(s) Completed: Abdomen/Pelvis SIGNATURE: RT Melissa(R) PATIENT NAME: Saran Mendez DATE: July 09, 2023 TIME: 1:44 PM Normal [facility] Bacteria Bld Culton 07-09-19 Bacteria identified Cx Nom (Bld) CULTURE, BLOOD: No growth 5 days Normal [facility] Comment on above: Performed By: #### 6 -7 #### [facility] CLIA [id number] [address] [facility] Performed By: #### 6 -7 ####[facility] [id number] [place] [address] [place] CBC W Auto Differential pane l (Bld)on 07-09-2023 Basophils (Bld) [#/Vol] 10*3/uL Normal <0.11 [facility] Comment on above: Order Comment: Speci men Type: BLOOD SPECIMEN Ordering Facility: [facility] Address: [address] [place] [address] Performed By: #### 5 8410-2 #### [facility] CLIA [id number] [address] [place] [address] [place] Basophils/100 WBC (Bld) 0.1 % Normal [facility] Comment on above: Order Comment: Speci men Type: BLOOD SPECIMEN Ordering Facility: [facility] Address: [address] [place] [address] Performed By: #### 5 8410-2 #### [facility] CLIA [id number] [address] [place] [address] [place] [facility] Differential cell count method Nom (Bld) Auto Normal [facility] Comment on above: Order Comment: Speci men Type: BLOOD SPECIMEN Ordering Facility: [facility] Address: [address] [place] [address] Performed By: #### 5 8410-2 #### [facility] CLIA [id number] [address] [place] [id number] [place] Eosinophils (Bld) [#/Vol] 10*3/uL Normal <0.46 [facility] Comment on above: Order Comment: Speci men Type: BLOOD SPECIMEN Ordering Facility: [facility] Address: [address] [place] [address] Performed By: #### 5 8410-2 #### [facility] CLIA [id number] [address] [place] [id number] [place] Eosinophils/100 WBC (Bld) 0.1 % Normal [facility] Comment on above: Order Comment: Speci men Type: BLOOD SPECIMEN Ordering Facility: [facility] Address: [address] [place] [address] Performed By: #### 5 8410-2 #### [facility] CLIA [id number] [address] [place] [address] [place] Erythrocyte distribution width (RBC) [Ratio] 13.7 % Normal 11.5-15.0 [facility] Comment on above: Order Comment: Speci men Type: BLOOD SPECIMEN Ordering Facility: [facility] Address: [address] [place] [address] Performed By: #### 5 8410-2 #### [facility] CLIA [id number] [address] [place] [address] [place] Hematocrit (Bld) [Volume fraction] 43.5 % Normal 36.0-46.0 [facility] Comment on above: Order Comment: Speci men Type: BLOOD SPECIMEN Ordering Facility: [facility] Address: [address] [place] [address] Performed By: #### 5 8410-2 #### [facility] CLIA [id number] [address] [place] [address] [place] Hemoglobin (Bld) [Mass/Vol] 13.7 g/dL Normal 11.5-15.5 [facility] Comment on above: Order Comment: Speci men Type: BLOOD SPECIMEN Ordering Facility: [facility] Address: [address] [place] [address] Performed By: #### 5 8410-2 #### [facility] CLIA [id number] [address] [place] [address] [place] Immature granulocytes (Bld) [#/Vol] 0.06 10*3/uL Normal <0.10 [facility] Comment on above: Order Comment: Speci men Type: BLOOD SPECIMEN Ordering Facility: [facility] Address: [address] [place] [address] Performed By: #### 5 8410-2 #### [facility] CLIA [id number] [address] [place] [id number] [place] Immature granulocytes/100 WBC (Bld) 0.3 % Normal [facility] Comment on above: Order Comment: Speci men Type: BLOOD SPECIMEN Ordering Facility: [facility] Address: [address] [place] [address] Performed By: #### 5 8410-2 #### [facility] CLIA [id number] [address] [place] [address] [place] Lymphocytes (Bld) [#/Vol] 1.00 10*3/uL Normal 1.00-4.00 [facility] Comment on above: Order Comment: Speci men Type: BLOOD SPECIMEN Ordering Facility: [facility] Address: [address] [place] [address] Performed By: #### 5 8410-2 #### [facility] CLIA [id number] [address] [place], [place] [id number] [place] [address] [place] Lymphocytes/100 WBC (Bld) 5.4 % Normal [facility] Comment on above: Order Comment: Speci men Type: BLOOD SPECIMEN Ordering Facility: [facility] Address: [address] [place] [address] Performed By: #### 5 8410-2 #### [facility] CLIA [id number] [address] [place], [place] [id number] [place] [address] [place] MCH (RBC) [Entitic mass] 30.4 pg Normal 26.0-34.0 [facility] Comment on above: Order Comment: Speci men Type: BLOOD SPECIMEN Ordering Facility: [facility] Address: [address] [place] [address] Performed By: #### 5 8410-2 #### [facility] CLIA [id number] [address] [place] [address] [place] MCHC (RBC) [Mass/Vol] 31.5 g/dL Normal 30.5-36.0 [facility] Comment on above: Order Comment: Speci men Type: BLOOD SPECIMEN Ordering Facility: [facility] Address: [address] [place] [address] Performed By: #### 5 8410-2 #### [facility] CLIA [id number] [address] [place] [address] [place] MCV (RBC) [Entitic vol] 96.7 fL Normal 80.0-100.0 [facility] Comment on above: Order Comment: Speci men Type: BLOOD SPECIMEN Ordering Facility: [facility] Address: [address] [place] [address] Performed By: #### 5 8410-2 #### [facility] CLIA [id number] [address] [place] [address] [place] Monocytes (Bld) [#/Vol] 1.63 10*3/uL High <0.87 [facility] Comment on above: Order Comment: Speci men Type: BLOOD SPECIMEN Ordering Facility: [facility] Address: [address] [place] [address] Performed By: #### 5 8410-2 #### [facility] CLIA [id number] [address] [place] [address] [place] Monocytes/100 WBC (Bld) 8.8 % Normal [facility] Comment on above: Order Comment: Speci men Type: BLOOD SPECIMEN Ordering Facility: [facility] Address: [address] [place] [address] Performed By: #### 5 8410-2 #### [facility] CLIA [id number] [address] [place] [address] [place] Neutrophils (Bld) [#/Vol] 15.83 10*3/uL High 1.45-7.50 [facility] Comment on above: Order Comment: Speci men Type: BLOOD SPECIMEN Ordering Facility: [facility] Address: [address] [place] [address] Performed By: #### 5 8410-2 #### [facility] CLIA [id number] [address] [place] [address] [place] Neutrophils/100 WBC (Bld) 85.3 % Normal [facility] Comment on above: Order Comment: Speci men Type: BLOOD SPECIMEN Ordering Facility: [facility] Address: [address] [place] [address] Performed By: #### 5 8410-2 #### [facility] CLIA [id number] [address] [place] [address] [place] Nucleated RBC (Bld) [#/Vol] Normal [facility] Comment on above: Order Comment: Speci men Type: BLOOD SPECIMEN Ordering Facility: [facility] Address: [address] [place] [address] Performed By: #### 5 8410-2 #### [facility] CLIA [id number] [address] [place] [address] [place] Nucleated RBC/100 WBC (Bld) [Ratio] Normal [facility] Comment on above: Order Comment: Speci men Type: BLOOD SPECIMEN Ordering Facility: [facility] Address: [address] [place] [address] Performed By: #### 5 8410-2 #### [facility] CLIA [id number] [address] [place] [address] [place] Platelet mean volume (Bld) [Entitic vol] 9.8 fL Normal 9.0-12.7 [facility] Comment on above: Order Comment: Speci men Type: BLOOD SPECIMEN Ordering Facility: [facility] Address: [address] [place] [address] Performed By: #### 5 8410-2 #### [facility] CLIA [id number] [address] [place] [address] [place] Platelets (Bld) [#/Vol] 265 10*3/uL Normal 150-400 [facility] Comment on above: Order Comment: Speci men Type: BLOOD SPECIMEN Ordering Facility: [facility] Address: [address] [place] [address] Performed By: #### 5 8410-2 #### [facility] CLIA [id number] [address] [place] [address] [place] RBC (Bld) [#/Vol] 4.50 10*6/uL Normal 3.90-5.20 [facility] Comment on above: Order Comment: Bryce pelayo Type: BLOOD SPECIMEN Ordering Facility: [facility] Address: [address] [place] [address] Performed By: #### 5 8410-2 #### [facility] CLIA [id number] [address] [place] [address] [place] WBC (Bld) [#/Vol] 18.55 10*3/uL High 3.70-11.00 [facility] Comment on above: Order Comment: Specbhavesh gita Type: BLOOD SPECIMEN Ordering Facility: [facility] Address: [address] [place], [place] [address] Performed By: #### 5 8410-2 #### [facility] CLIA [id number] [address] [place] [address] [facility] [place] CT ABD/PEL W IVCONon 024 CT ABD/PEL W IVCON * * *Final Report* * * DATE OF EXAM: Jul 09 2023 1:43PM [facility] 0530 - CT ABD/PEL W IVCON / PROCEDURE REASON: Flank pain, no prior imaging (Ped 0-18y) * * * * Physician Interpretation * * * * EXAMINATION: CT ABDOMEN AND PELVIS WITH IV CONTRAST CLINICAL HISTORY: UTI. Flank pain. Leukocytosis. TECHNIQUE: CT of the abdomen and pelvis was performed using standard technique, scanning from just above the dome of the diaphragm to the symphysis pubis. MQ: CTAP_3 Contrast: IV: 100 ml of Omnipaque 350 CT Radiation dose: Integrated Dose-length product (DLP) for this visit = 347.34 mGy*cm. CT Dose Reduction Employed: Automated exposure control(AEC) and iterative recon COMPARISON: None. RESULT: Liver: No mass. Biliary: No bile duct dilation. Gallbladder is unremarkable. Spleen: 2.6 cm fluid attenuation mass in the spleen superiorly. Splenomegaly noted with the spleen measuring 15.6 cm in greatest dimension. Pancreas: No mass or duct dilation. Adrenals: No mass. Kidneys: There are regions of relative decreased enhancement at the anterior mid and superior portions of the right kidney suspicious for pyelonephritis. No intrarenal abscess. No evidence of urinary tract calculi. Kidneys otherwise enhance symmetrically. No hydronephrosis. There is subtle urothelial enhancement of the right renal pelvis and proximal ureter as may be seen with inflammation/infecti on. Left kidney enhances normally. No evidence of renal mass. GI tract: No dilation or wall thickening. Appendix is not visualized. Lymph nodes: No abdominal or pelvic lymphadenopathy. Mesentery/Peritoneum : No ascites or mass. Retroperitoneum: No mass. Vasculature: - Abdominal aorta and iliac arteries: No aneurysm. - Celiac and SMA: Patent without stenosis. - Portal venous system (SMV, splenic vein, portal vein and branches): Patent. - Hepatic veins: Patent. Pelvis: Intrauterine contraceptive device is present. 3.8 x 3.2 cm cystic structure in the left adnexa is likely a functional cyst. No free pelvic fluid. Bones/Soft Tissues: No significant finding. Lower thorax: Unremarkable. Rn Labor Delivery (topogram) images: No additional findings. IMPRESSION: 1. There are regions of relative decreased enhancement at the upper and mid portions of the right kidney suspicious for pyelonephritis. No adrenal abscess. No evidence of urinary tract calculi. No hydronephrosis. Subtle urothelial enhancement of the right renal pelvis and proximal ureter as may be seen with inflammation/infecti on. 2. 2.6 cm fluid attenuation mass in the spleen superiorly is likely a cyst or hemangioma. Splenomegaly noted. 3. 3.8 x 3.2 cm cystic structure in the left adnexa is likely a functional cyst. Prop And Effects Designer: SB Transcribe Date/Time: Jul 09 2023 1:46P Dictated by : NORBERTO BROWER MD This examination was interpreted and the report reviewed and electronically signed by: NORBERTO BROWER MD on Jul 09 2023 1:57PM EST [id number] CN Normal [facility] Comprehensive metabolic 2000 panelon 07-09-2023 Albumin [Mass/Vol] 4.3 g/dL Normal 3.9-4.9 [facility] Comment on above: Order Comment: Speci men Type: BLOOD SPECIMEN Ordering Facility: [facility] Address: [address] [place] [address] Performed By: #### 5 8410-2 #### [facility] CLIA [id number] [address] [place] [address] [place] ALP [Catalytic activity/Vol] 129 U/L High 34-123 [facility] Comment on above: Order Comment: Speci men Type: BLOOD SPECIMEN Ordering Facility: [facility] Address: [address] [place] [address] Performed By: #### 5 8410-2 #### [facility] CLIA [id number] [address] [place] [address] [place] ALT With P-5'-P [Catalytic activity/Vol] 50 U/L High 7-38 [facility] Comment on above: Order Comment: Speci men Type: BLOOD SPECIMEN Ordering Facility: [facility] Address: [address] [place] [address] Performed By: #### 5 8410-2 #### [facility] CLIA [id number] [address] [place] [address] [place] Anion gap [Moles/Vol] 12 mmol/L Normal 9-18 [facility] Comment on above: Order Comment: Speci men Type: BLOOD SPECIMEN Ordering Facility: [facility] Address: [address] [place] [address] Performed By: #### 5 8410-2 #### [facility] CLIA [id number] [address] [place] [address] [place] AST With P-5'-P [Catalytic activity/Vol] 40 U/L High 13-35 [facility] Comment on above: Order Comment: Speci men Type: BLOOD SPECIMEN Ordering Facility: [facility] Address: [address] [place] [address] Performed By: #### 5 8410-2 #### [facility] CLIA [id number] [address] [place] [address] [place] Bilirubin [Mass/Vol] 1.3 mg/dL Normal 0.2-1.3 [facility] Comment on above: Order Comment: Speci men Type: BLOOD SPECIMEN Ordering Facility: [facility] Address: [address] [place] [address] Performed By: #### 5 8410-2 #### [facility] CLIA [id number] [address] [place] [address] [place] Calcium [Mass/Vol] 9.7 mg/dL Normal 8.5-10.2 [facility] Comment on above: Order Comment: Speci men Type: BLOOD SPECIMEN Ordering Facility: [facility] Address: [address] [place] [address] Performed By: #### 5 8410-2 #### [facility] CLIA [id number] [address] [place] [address] [place] Chloride [Moles/Vol] 99 mmol/L Normal 97-105 [facility] Comment on above: Order Comment: Speci men Type: BLOOD SPECIMEN Ordering Facility: [facility] Address: [address] [place] [address] Performed By: #### 5 8410-2 #### [facility] CLIA [id number] [address] [place] [address] [place] CO2 [Moles/Vol] 25 mmol/L Normal 22-30 [facility] Comment on above: Order Comment: Speci men Type: BLOOD SPECIMEN Ordering Facility: [facility] Address: [address] [place] [address] Performed By: #### 5 8410-2 #### [facility] CLIA [id number] [address] [place] [address] [place] Creatinine [Mass/Vol] 0.81 mg/dL Normal 0.58-0.96 [facility] Comment on above: Order Comment: Speci men Type: BLOOD SPECIMEN Ordering Facility: [facility] Address: [address] [place] [address] Performed By: #### 5 8410-2 #### [facility] CLIA [id number] [address] [place] [address] [facility] [place] Creatinine and Glomerular filtration rate.predicted panel (S/P/Bld) 104 mL/min/1.73m??? Normal >=60 [facility] Comment on above: Order Comment: Speci men Type: BLOOD SPECIMEN Ordering Facility: [facility] Address: [address] [place] [address] Result Comment: Vicky mated Glomerular Filtration Rate (eGFR) is calculated using the 2020 CKD-EPI creatinine equation. This equation utilizes serum creatinine, sex, and age as parameters. The creatinine assay has traceable calibration to isotope dilution-mass spectrometry. Refer to KDIGO guidelines for clinical interpretation. In patients with unstable renal function, e.g. those with acute kidney injury, the eGFR may not accurately reflect actual GFR. Performed By: #### 5 8410-2 #### [facility] CLIA [id number] [address] [place] [address] [place] Glucose [Mass/Vol] 99 mg/dL Normal 74-99 [facility] Comment on above: Order Comment: Bryce pelayo Type: BLOOD SPECIMEN Ordering Facility: [facility] Address: [address] [place] [address] Result Comment: The [place] Diabetes Association (ADA) provides guidance for cutoff values for fasting glucose and random glucose. The ADA defines fasting as no caloric intake for at least 8 hours. Fasting plasma glucose results between 100 to 125 mg/dL indicate increased risk for diabetes (prediabetes). Fasting plasma glucose results greater than or equal to 126 mg/dL meet the criteria for diagnosis of diabetes. In the absence of unequivocal hyperglycemia, results should be confirmed by repeat testing. In a patient with classic symptoms of hyperglycemia or hyperglycemic crisis, random plasma glucose results greater than or equal to 200 mg/dL meet the criteria for diagnosis of diabetes. Reference: Standards of Medical Care in Diabetes 2016, [place] [employer] Association. Diabetes Care. 2016.39(Suppl 1). Performed By: #### 5 8410-2 #### [facility] CLIA [id number] [address] [place] [address] [place] Potassium [Moles/Vol] 4.5 mmol/L Normal 3.7-5.1 [facility] Comment on above: Order Comment: Bryce pelayo Type: BLOOD SPECIMEN Ordering Facility: [facility] Address: [address] [id number] Performed By: #### 5 8410-2 #### [facility] CLIA [id number] [address] [place] [address] [place] Protein [Mass/Vol] 7.7 g/dL Normal 6.3-8.0 [facility] Comment on above: Order Comment: Speci men Type: BLOOD SPECIMEN Ordering Facility: [facility] Address: [address] [place] [address] Performed By: #### 5 8410-2 #### [facility] CLIA [id number] [address] [place] [id number] [place] Sodium [Moles/Vol] 136 mmol/L Normal 136-144 [facility] Comment on above: Order Comment: Speci men Type: BLOOD SPECIMEN Ordering Facility: [facility] Address: [address] [place] [address] Performed By: #### 5 8410-2 #### [facility] CLIA [id number] [address] [place] [address] [place] Urea nitrogen [Mass/Vol] 14 mg/dL Normal 7-21 [facility] Comment on above: Order Comment: Speci men Type: BLOOD SPECIMEN Ordering Facility: [facility] Address: [address] [place] [address] Performed By: #### 5 8410-2 #### [facility] CLIA [id number] [address] [place], [place] [address] [place] [address] [place] ED NOTEon 07-09-2023 ED NOTE HNO ID: [id number] Author: SERENE HERNANDEZ RN Service: Emergency Medicine Author Type: Registered Nurse Type: ED Notes Filed: 07/09/2023 15:37 Note Text: Report given to Amy ANGUIANO. Pt transported by this RN to [facility] ED NOTE HNO ID: [id number] Author: SERENE HERNANDEZ, ANNMARIE Service: Emergency Medicine Author Type: Registered Nurse Type: ED Notes Filed: 07/09/2023 14:54 Note Text: Pt to go to EW room 102. Report attempted no answer. Will call back [facility] ED NOTE HNO ID: [id number] Author: SERENE HERNANDEZ, ANNMARIE Service: Emergency Medicine Author Type: Registered Nurse Type: ED Notes Filed: 07/09/2023 13:24 Note Text: Medicated for pain Normal [facility] ED NOTE HNO ID: [id number] Author: SERENE HERNANDEZ RN Service: Emergency Medicine Author Type: Registered Nurse Type: ED Notes Filed: 07/09/2023 11:58 Note Text: Pt arrived with worsening flank pain after Uti dx yesterday. Pt states stated on cipro yesterday. Notes headache and nausea as well. [place], warm, dry. No apparent distress. Alert and oriented. HR elevated on arrival. Normal [facility] ED PROV NOTEon 07-09-2023 ED PROV NOTE HNO ID: [id number] Author: AMISH JEFFERY DO Service: Emergency Medicine Author Type: Physician Type: ED Provider Notes Filed: 07/09/2023 14:48 Note Text: ED Provider Note Patient Name: Saran Mendez : 2000 SERVICE DATE: 07/09/23 History Patient presents with: Flank Pain Nausea Saran Mendez is a 23 year old female who presents with Flank Pain and Nausea. - Symptoms began a few days ago. - Severity: moderate - Timing: constant - Quality: sore - Symptoms are associated with nausea, back pain. - Symptoms are not associated with abdominal pain, chest pain, diarrhea, fever, shortness of breath, and vomiting, dysuria, hematuria. Patient presents with back pain for the past few days. She states that she was diagnosed with a UTI yesterday and started on Cipro. She states that her pain is worsening and feels it in her lower back and both flank areas. She states she has had nausea, no vomiting. No diarrhea. No fever. She states she has no dysuria or hematuria. She denies any history of kidney stones. No chest pain or shortness of breath. She reports history of drug use, but not currently. No past medical history on file. PAST SURGICAL HISTORY Procedure Laterality Date TONSILLECTOMY HX No family history on file. Social History Tobacco Use Smoking status: Some Days Types: Cigarettes Passive exposure: Current Smokeless tobacco: Never Vaping Use Vaping Use: current everyday user Substances: Nicotine Substance and Sexual Activity Alcohol use: No Drug use: Not Currently Types: Marijuana, Amphetamines Sexual activity: Not on file ALLERGIES No Known Allergies Review of Systems Constitutional: Negative for fever. Respiratory: Negative for shortness of breath. Cardiovascular: Negative for chest pain. Gastrointestinal: Positive for nausea. Negative for abdominal pain, diarrhea and vomiting. Genitourinary: Positive for flank pain. Negative for dysuria, hematuria, pelvic pain and vaginal bleeding. Musculoskeletal: Positive for back pain. Skin: Negative for rash. Neurological: Negative for weakness and numbness. Psychiatric/Behavior al: Negative for agitation and confusion. Physical Exam Vitals BP Pulse Temp Temp src Resp SpO2 Weight Height 07/09/23 1155 07/09/23 1154 07/09/23 1154 07/09/23 1154 07/09/23 1154 07/09/23 1154 07/09/23 1154 -- 126/75 (!) 120 36.3 ?C (97.3 ?F) Temporal 18 100 % 63.5 kg (140 lb) Physical Exam Vitals and nursing note reviewed. Constitutional: Appearance: She is not toxic-appearing or diaphoretic. HENT: Head: Normocephalic and atraumatic. Eyes: General: No scleral icterus. Conjunctiva/sclera: Conjunctivae normal. Cardiovascular: Rate and Rhythm: Regular rhythm. Tachycardia present. Pulses: Normal pulses. Pulmonary: Effort: Pulmonary effort is normal. Breath sounds: Normal breath sounds. Abdominal: General: Abdomen is flat. Bowel sounds are normal. There is no distension. Palpations: Abdomen is soft. Tenderness: There is no abdominal tenderness. There is right CVA tenderness and left CVA tenderness. There is no guarding or rebound. Musculoskeletal: Right lower leg: No edema. Left lower leg: No edema. Comments: No overlying skin changes to the back. Skin: General: Skin is warm and dry. Capillary Refill: Capillary refill takes less than 2 seconds. Findings: No rash. Neurological: General: No focal deficit present. Mental Status: She is alert and oriented to person, place, and time. Psychiatric: Mood and Affect: Mood normal. Behavior: Behavior normal. Diagnostic Testing ED Labs Ordered and Reviewed COMP METABOLIC PANEL - Abnormal; Notable for the following components: Result Value Ref Range Alkaline Phosphatase 129 (*) 34 - 123 U/L AST 40 (*) 13 - 35 U/L ALT 50 (*) 7 - 38 U/L All other components within normal limits LIPASE BLD - Abnormal; Notable for the following components: Lipase 13 (*) 16 - 61 U/L All other components within normal limits CBC + DIFF - Abnormal; Notable for the following components: WBC 18.55 (*) 3.70 - 11.00 k/uL Abs Neut 15.83 (*) 1.45 - 7.50 k/uL Abs [place] 1.63 (*) <0.87 k/uL All other components within normal limits URINALYSIS WITH MICROSCOPIC, REFLEX CULTURE - Abnormal; Notable for the following components: Clarity Slightly Cloudy (*) Clear Hemoglobin/Blood,Ur Trace (*) Negative Protein, Urine 1+ (*) Negative WBC, Urine 11-25 /HPF (*) 0-5 /HPF RBC, Urine 3-5 /HPF (*) 0-3 /HPF Bacteria Few (*) None Seen /HPF All other components within normal limits HCG QUAL UR - Normal SEPSIS LACTATE - Normal HIGH SENSITIVITY TROPONIN T - Normal URINE CULTURE IF INDICATED BLOOD CULTURE BLOOD CULTURE Procedures ED Course / Clinical Impression Clinical Impressions as of 07/09/23 1448 Pyelonephritis MDM / Disposition / Plan Will obtain labs, UA, CT abdomen and pelvis. Labs Reviewed COMP (more content not included)... Normal [facility] EKGon 07-09-2023 Electrocardiogram Ventricular Rate : 123 BPM Atrial Rate : 123 BPM P-R Interval : 156 ms QRS Duration : 76 ms Q-T Interval : 304 ms QTC Calculation(Bazett) : 435 ms Calculated P [place] : 62 degrees Calculated R [place] : 88 degrees Calculated T [place] : 57 degrees SINUS TACHYCARDIA OTHERWISE NORMAL ECG NO PREVIOUS ECGS AVAILABLE Confirmed by MD CANTRELL VINAYAK ([id number]) on 07/09/2023 11:38:44 PM NAME : SARAN MENDEZ PID : [id number] : 2000 Gender : Female Race : ORD : Procedure Date : Jul 09 2023 14:16:05 Edit Date : Jul 09 2023 23:38:49 Diagnosis: SINUS TACHYCARDIA OTHERWISE NORMAL ECG NO PREVIOUS ECGS AVAILABLE Confirmed by MD CANTRELL VINAYAK ([id number]) on 07/09/2023 11:38:44 PM Test Reason : Location : 191 : [facility] ED Overread By : MD CANTRELL VINAYAK Edited By : MD CANTRELL VINAYAK Referred By : , Acquired by : OLIBLANCA Normal [facility] HCG Preg Ur Qlon 07-09-2023 HCG ( test) Ql (U) Negative Normal Negative [facility] Comment on above: Order Comment: Bryce pelayo Type: BLOOD SPECIMEN Ordering Facility: [facility] Address: [address] [place] [address] Result Comment: This test is intended to aid in the early detection of . Very dilute urine samples, as indicated by a low specific gravity, may not contain food service representative levels of hCG. This test detects intact hCG only. This test does not reliably detect hCG degradation products, including free-beta subunit and beta-core fragment. Therefore, this test may show reduced reactivity in urine after 8 weeks gestation. A number of conditions other than , including trophoblastic disease and certain non-trophoblastic neoplasms cause elevated levels of hCG. As with any assay employing mouse antibodies, the possibility exists for interference by human anti-mouse antibodies (HAMA) in the specimen. The test provides a presumptive diagnosis for . Performed By: #### 5 8410-2 #### [facility] CLIA [id number] [address] [place] [address] [place] HIGH SENSITIVITY TROPONIN To n 07-09-2023 Troponin T.cardiac High sensitivity method [Mass/Vol] <6 Normal <12 [facility] Comment on above: Order Comment: Bryce pelayo Type: BLOOD SPECIMEN Ordering Facility: [facility] Address: [address] [place] [address] Result Comment: When assessing risk for acute coronary syndromes: In patients undergoing blood draw greater than or equal to 2 hours from symptom onset, with history of very low to moderate risk and non-ischemic ECG, an initial hs-Troponin T less than 12 ng/L AND a 1 hour delta hs-Troponin T less than 3 ng/L should be considered very low risk for 30 day MACE. Performed By: #### H STNT #### [facility] CLIA [id number] [address] [place] [address] [place] Lipase SerPl-cCncon 07-09-19 Lipase [Catalytic activity/Vol] 13 U/L Low 16-61 [facility] Comment on above: Order Comment: Speci men Type: BLOOD SPECIMEN Ordering Facility: [facility] Address: [address] [place] [address] Performed By: #### 5 8410-2 #### [facility] CLIA [id number] [address] [place] [address] [facility] LACTATEon 07-09-2023 Lactate [Moles/Vol] 0.9 mmol/L Normal <=4.0 [facility] Comment on above: Order Comment: Speci men Type: BLOOD SPECIMEN Ordering Facility: [facility] Address: [address] [place] [address] Performed By: #### H STNT #### [facility] CLIA [id number] [address] [place], [place] [id number] [place] Urinalysis complete pnl Uron 07-09-2023 Urinalysis complete panel (U) COLOR: Yellow CLARITY: Slightly Cloudy GLUCOSE, URINE: Negative BILIRUBIN, URINE: Negative KETONES, URINE: Negative SPECIFIC GRAVITY, UR: 1.025 HEMOGLOBIN/BLOOD, UR: Trace PH, URINE: 6.0 PROTEIN, URINE: 1+ UROBILINOGEN: 1.0 EU/dL NITRITES: Negative LEUKEST: Negative WBC, URINE: 11-25 /HPF RBC, URINE: 3-5 /HPF BACTERIA: Few SQUAMOUS EPITHELIAL CELLS: Few CULTURE, URINE: No growth (<1,000 CFU/ml) Abnormal [facility] Comment on above: Order Comment: Speci men Type: URINE SPECIMENOrdering Facility: [facility] Address: [address] [place] [address] Performed By: #### 2 4356-8 ####[facility] LABCLIA [id number] [place] [address] [place] [facility]ORY[facility] [id number] [place] [address] [place] Bacteria identifiedon 2023 Bacteria identified Cx Nom (U) Test: Urine culture Specimen Source: Clean Catch/Voided Specimen Type: Urine Specimen Date: 07/08/2023 4:01 PM Result Date: 07/11/2023 8:48 AM Result Status: Final result Abnormal: Yes Resulting Lab: [facility] [address] [address] CULTURE >100,000 Escherichia coli (Abnormal) SUSCEPTIBILITY Escherichia coli METHOD MICROSCAN AMOXICILLIN/CLAVULAN ATE -- Susceptible AMPICILLIN -- Resistant AMPICILLIN/SULBACTAM -- Intermediate CEFAZOLIN -- Susceptible CEFAZOLIN (UNCOMPLICATED UTIS ONLY) -- Susceptible CIPROFLOXACIN -- Susceptible GENTAMICIN -- Susceptible NITROFURANTOIN -- Susceptible PIPERACILLIN/TAZOBAC MORLEY -- Susceptible TRIMETHOPRIM/SULFAME THOXAZOLE -- Susceptible Abnormal [facility] Comment on above: Performed By: #### 6 30-4 #### SANDRA Condon ([id number]) [facility] ([facility]) [address] [place] [address] POCT UA (nonautomated w/o mi croscopy) manually resultedon 07-08-2023 Appearance (U) Clear Clear [facility] Work Phone: Glucose Test strip (U) [Mass/Vol] Negative NEGATIVE mg/dl [facility] Work Phone: Hemoglobin Ql (U) SMALL (1+) Abnormal NEGATIVE [facility] Work Phone: Interpretation and review of laboratory results Abnormal [facility] Work Phone: Leukocyte esterase Test strip Ql (U) MODERATE (2+) Abnormal NEGATIVE [facility] Work Phone: Nitrite Ql (U) Positive Abnormal NEGATIVE [facility] Work Phone: pH (U) 7.0 [pH] No Reference Range Established [facility] Work Phone: POC Bilirubin, Urine Negative NEGATIVE [facility] Work Phone: POC Color, Urine Yellow Straw, [place] ow, Light-Yellow [facility] Work Phone: POC Ketones, Urine Negative NEGATIVE mg/dl Un [facility] Work Phone: POC Protein, Urine 30 (1+) NEGATIVE, 30 (1+) mg/dl [facility] Work Phone: POC Specific [place], Urine 1.025 1.005 - 1.035 [facility] Work Phone: POC Urobilinogen, Urine 0.2 0.2, 1.0 EU/DL [facility] Work Phone: [facility] Work Phone: CNOVon 07-05-2023 CNOV Office Visit ([id number]) VANESSASARAN ([id number]) 2000 F Date Time Provider Department 07/05/23 8:30 AM KENDALL TALLEY AGB1 During your visit today, we recorded the following information about you: Respiration Weight Height 18/minute 63.5 kg 1.778 m Cathy Shook MA 07/19/2023 7:33 PM Signed REVIEW OF SYSTEMS: GENERAL: Well developed, well nourished. No acute distress PAIN: Pain 07/25 CARDIOVASCULAR: Negative for chest pain, leg swelling and palpations. MSK: Negative for joint swelling SKIN: Negative for lesions, rash, itching, metal sensitivity NEURO: Negative for seizure, trauma, numbness/tingling of extremities. ENDOCRINE: Negative for diabetic associated symptoms HEMATOLOGY: Negative for excessive bleeding, clots, bleeding disorders. TELMA Craig Jordan Paul, MONSEM 07/19/2023 7:33 PM Signed CC: right foot injury Fracture Care Day # 0 HPI: This 23 year old female with PMH indicated below presents today for right foot injury. Patient states that injuried right foot on 06/29/2023. Patient states that she kicked a door. She presented to ED where x-rays were taken and patient was told that broke a bone in their foot. Patient states has been ambulating in surgical shoe since that time. Pain is moderate. Patient denies numbness and tingling. Patient states that she would like a CAM Boot because she has pain with the Surgical Shoe. Denies any current nausea, vomiting, fever, chills, shortness of breath, chest pain or calf pain. Denies any other pedal complaints. Aneta Crabtree MD, MD History reviewed. No pertinent past medical history. Current Outpatient Medications Medication Sig Dispense Refill buPROPion XL (WELLBUTRIN XL) 300 mg 24 hr tablet Take 300 mg by mouth. QUEtiapine (SEROQUEL) 100 mg tablet Take 100 mg by mouth daily at bedtime. ARIPiprazole (ABILIFY) 5 mg tablet Take 1 tablet by mouth once daily. 30 tablet 0 buPROPion SR (WELLBUTRIN SR) 100 mg 12 hr tablet Take 1 tablet by mouth twice daily. 60 tablet 0 ergocalciferol 50,000 unit capsule (VITAMIN D2, DRISDOL) Take 1 capsule by mouth one time a week. 12 capsule 0 nicotine polacrilex (NICORETTE) 2 mg gum Take 1 Each by mouth every 2 hours as needed. (Patient not taking: Reported on 07/05/2023) venlafaxine ER (EFFEXOR XR) 37.5 mg 24 hr capsule Take 3 capsules by mouth daily with breakfast. 90 capsule 0 No current facility-administere d medications for this visit. ALLERGIES No Known Allergies PAST SURGICAL HISTORY Procedure Laterality Date TONSILLECTOMY HX Social History Tobacco Use Smoking status: Some Days Types: Cigarettes Passive exposure: Current Smokeless tobacco: Never Vaping Use Vaping Use: current everyday user Substances: Nicotine Substance Use Topics Alcohol use: No Drug use: Not Currently Types: Marijuana, Amphetamines History reviewed. No pertinent family history. REVIEW OF SYSTEMS ROS Negative Except as Noted in HPI Physical examination: On General Observation: Patient is a pleasant, cooperative, well developed 23 year old adult female. The patient is alert and oriented to time, place and person. Patient has normal affect and mood. Resp 18 Ht 177.8 cm (5' 10) Wt 63.5 kg (140 lb) BMI 20.09 kg/m? Patient presents in post op shoe today. Vascular: DP and PT pulses are palpable. CFT less than 3 seconds to all digits bilateral. Skin temperature is warm to warm from proximal to distal bilateral. Hair growth is noted. Positive edema noted overlying 1st digit right foot. Neuro: Light touch intact bilateral. No clonus noted. Derm: Skin texture and turgor within normal limits. Toenails normal in appearance. Webspaces 1-4 clean, dry, intact bilateral. No rashes, subcutaneous nodules, or open lesions noted. No hyperkeratotic tissue. + ecchymosis noted to 1st digit right. No fracture blisters noted. Musc: Muscle strength is 5/5 for all muscle groups including dorsiflexors, plantarflexors, everters, and inverters b/l. There is local edema and ecchymosis noted at the to 1st digit right foot. Pain to palpation to the global 1st digit right foot. No pain to the metatarsal shafts. No pain with MTPJ ROM. Flexor and extensor strength maintained to digital level. No pain noted to palpation of the cuboid or the adjacent metatarsals or lisfranc joint complex. Ankle joint ROM is decreased b/l. Last XR Foot - Impression Only XR FOOT GENERAL 3V AP/LAT/OBL RIGHT Exam End: 06/30/2023 1:51 PM (Final result) Impression: IMPRESSION: Mildly displaced fracture through the base of the distal phalanx great toe. Prop And Effects Designer: SB ... Impression: This is a 23 year old patient presenting with closed 1st digit fracture of the right foot Plan: - A comprehensive history and physical examination were preformed. The patient was educated on clinical and radiographic findings, (more content not included)... Normal [facility] ED NOTEon 06-30-2023 ED NOTE HNO ID: [id number] Author: BRI ENNIS RN Service: Emergency Medicine Author Type: Registered Nurse Type: ED Notes Filed: 07/02/2023 20:38 Note Text: Emergency Services: ED Call Back Questionnaire SERVICE DATE: 06/30/2023 Are you feeling better? Yes Any questions about discharge instructions and follow-up care? No Were you able to make a follow up appointment? Yes Do you have any further questions? No Is there anything that we could have done differently to improve your ED visit? No SIGNATURE: Bri Ennis RN PATIENT NAME: Saran Mendez DATE: July 02, 2023 TIME: 8:38 PM Normal [facility] ED NOTE HNO ID: [id number] Author: TRAV BURGOS RN Service: Nursing Author Type: Registered Nurse Type: ED Notes Filed: 06/30/2023 13:05 Note Text: Pt arrives with right toe/foot injury caused by kicking a door yesterday. Pt reports pain is radiating up to knee at this point. Pt took some Aleve a few hours ago. Normal [facility] ED PROV NOTEon 06-30-2023 ED PROV NOTE HNO ID: [id number] Author: AMISH JEFFERY DO Service: Emergency Medicine Author Type: Physician Type: ED Provider Notes Filed: 06/30/2023 16:48 Note Text: ED Provider Note Patient Name: Saran Mendez : 2000 SERVICE DATE: 06/30/23 History Patient presents with: Pain (foot) Saran Mendez is a 23 year old female who presents with Pain (foot). - Symptoms began yesterday. - Severity: moderate - Timing: constant - Quality: sore - Pain (foot) is exacerbated by movement palpation. - Symptoms are associated with right great toe pain/injury, right great toe bruising. - Symptoms are not associated with numbness, weakness, wound, right ankle pain. Patient presents with right great toe injury and pain that started yesterday. She states she kicked a door in her barefoot prior to symptoms starting. No numbness or weakness. No wound. No pain in the right ankle. History reviewed. No pertinent past medical history. PAST SURGICAL HISTORY Procedure Laterality Date TONSILLECTOMY HX No family history on file. Social History Tobacco Use Smoking status: Some Days Types: Cigarettes Passive exposure: Current Smokeless tobacco: Never Vaping Use Vaping Use: current everyday user Substances: Nicotine Substance and Sexual Activity Alcohol use: No Drug use: Not Currently Types: Marijuana, Amphetamines Sexual activity: Not on file ALLERGIES No Known Allergies Review of Systems Constitutional: Negative for fever. Musculoskeletal: Positive for arthralgias (Right great toe) and joint swelling (Right great toe). Skin: Positive for color change (Bruising to right great toe). Negative for wound. Neurological: Negative for weakness and numbness. Physical Exam Vitals [06/30/23 1301] BP Pulse Temp Temp src Resp SpO2 Weight Height 126/83 (!) 112 36.6 ?C (97.8 ?F) -- 15 100 % 18.1 kg (40 lb) 1.778 m (5' 10) Physical Exam Vitals and nursing note reviewed. Constitutional: Appearance: She is not toxic-appearing or diaphoretic. HENT: Head: Normocephalic and atraumatic. Eyes: Conjunctiva/sclera: Conjunctivae normal. Cardiovascular: Rate and Rhythm: Regular rhythm. Tachycardia present. Pulses: Normal pulses. Pulmonary: Effort: Pulmonary effort is normal. Breath sounds: Normal breath sounds. Musculoskeletal: Right ankle: No swelling, deformity, ecchymosis or lacerations. No tenderness. Normal range of motion. Normal pulse. Right Achilles Tendon: No tenderness. Right foot: Normal range of motion and normal capillary refill. Swelling, tenderness and bony tenderness (right great toe) present. No deformity, laceration or crepitus. Normal pulse. Feet: Comments: Right foot: There is tenderness and swelling and bruising to the right great toe. Toe nail intact. No subungual hematoma. Skin intact. Right great toe is soft, compressible. Skin: General: Skin is warm and dry. Capillary Refill: Capillary refill takes less than 2 seconds. Neurological: Mental Status: She is alert and oriented to person, place, and time. GCS: GCS eye subscore is 4. GCS verbal subscore is 5. GCS motor subscore is 6. Psychiatric: Mood and Affect: Mood normal. Behavior: Behavior normal. Diagnostic Testing ED Labs Ordered and Reviewed - No data to display Procedures ED Course / Clinical Impression Clinical Impressions as of 06/30/23 1645 Closed displaced fracture of distal phalanx of right great toe MDM / Disposition / Plan Will obtain x-ray imaging of the right foot. XR FOOT GENERAL 3V AP/LAT/OBL RIGHT Final Result IMPRESSION: Mildly displaced fracture through the base of the distal phalanx great toe. Prop And Effects Designer: SB Transcribe Date/Time: Jun 30 2023 2:09P Dictated by : ARTHUR BAIG MD This examination was interpreted and the report reviewed and electronically signed by: ARTHUR BAIG MD on Jun 30 2023 2:10PM EST Re-evaluation: Patient is resting in bed, no distress. Updated on imaging results. We discussed immobilization, nonweightbearing status on right great toe and podiatry follow-up. We discussed short leg posterior splint versus pantera tape, Yunior wrap and postop shoe for immobilization. In shared decision-making with the patient, she declined a short leg posterior splint and is requesting postop shoe and splinting of the toe, with crutches. We discussed symptomatic treatment. She feels comfortable with OTC medications for pain. Patient be discharged home. Instructed on signs and symptoms to watch for and reasons to return the emergency department, otherwise follow-up with podiatry. Follow-up with primary. Differential Diagnoses - Closed fracture of distal phalanx of right great toe is more likely for the following reason(s): consistent with imaging and suggested by HANDP - Open right great toe fracture is less likely for the following reason(s): HANDP not suggestive - Subungual hematom (more content not included)... Normal [facility] XR FOOT 3V AP/LAT/OBL RTon 0 06-30-2023 XR FOOT 3V AP/LAT/OBL RT * * *Final Report* * * DATE OF EXAM: Jun 30 2023 1:51PM LDX 5337 - XR FOOT 3V AP/LAT/OBL RT / PROCEDURE REASON: Foot trauma, no prior imaging * * * * Physician Interpretation * * * * EXAM TITLE: X-RAY RIGHT FOOT DATE: June 30, 2023 CLINICAL INDICATION/HISTORY: Foot pain, great toe pain COMPARISON: None. TECHNIQUE: AP, oblique and lateral views of the right foot. FINDINGS: Mildly displaced fracture through the base of the distal phalanx of the great toe. No dislocation. No lytic or blastic osseous lesion. Soft tissues are unremarkable. IMPRESSION: Mildly displaced fracture through the base of the distal phalanx great toe. Prop And Effects Designer: SB Transcribe Date/Time: Jun 30 2023 2:09P Dictated by : ARTHUR BAIG MD This examination was interpreted and the report reviewed and electronically signed by: ARTHUR BAIG MD on Jun 30 2023 2:10PM EST [id number] Normal [facility] Office Visit (Urgent Care)on 05-25-2022 Follow-up visit Diagnoses/Problems Assessed Paronychia of finger of left hand (681.02) (L03.012) Paronychia of finger of right hand (681.02) (L03.011) Orders Paronychia of finger of right hand Start: Cephalexin 500 MG Oral Tablet; TAKE 1 TABLET 3 TIMES DAILY Rx By: Sandra Rebolledo; Dispense: 10 Days ; #:30 Tablet; Refill: 0;For: Paronychia of finger of right hand; ANIA = N; [facility] Patient Discussion/Summary Take all prescribed medications as directed. May soak your fingers in warm soapy water or Epson salts several times daily to encourage drainage. Avoid picking. Follow-up with your primary care physician. If you develop any new or worsening symptoms go directly to the ED for further evaluation and treatment. Chief Complaint Chief Complaints Finger Problem History of Present Illness 22-year-old female here for nail infection. Patient states she picks at and bites her nails compulsively. She states over the past 4 to 5 days they have gotten infected. She states they are all tender. She states the left middle finger is the most tender. She has not taken anything or applied anything to the area. She denies fever chills body aches or other systemic complaints. All other review of systems is negative for the chief complaint. Active Problems Problems Anxiety, mild (300.00) (F41.9) 2021-Dr Castro Bipolar depression (296.50) (F31.9) Cannabis use disorder (305.20) (F12.90) Cellulitis (682.9) (L03.90) Depression, major, in remission (296.25) (F32.5) 2021-Dr Castro Dysuria (788.1) (R30.0) Exposure to chlamydia (V01.6) (Z20.2) Heavy menses due to IUD (996.76,626.2) (T83.89XA,N92.0) Immunization due (V05.9) (Z23) IUD contraception (V45.51) (Z97.5) Tavernier use (V58.69) (Z79.899) Moderate episode of recurrent major depressive disorder (296.32) (F33.1) 2021-Dr Castro Moderately severe major depression (296.23) (F32.2) 2021-Dr Castro Recurrent major depressive disorder, in partial remission (296.35) (F33.41) 2021-Dr Castro Routine screening for STI (sexually transmitted infection) (V74.5) (Z11.3) Screening for cholesterol level (V77.91) (Z13.220) Screening for diabetes mellitus (V77.1) (Z13.1) Vaginitis (616.10) (N76.0) Vitamin D deficiency (268.9) (E55.9) Past Medical History Problems History of Acute swimmer's ear of right side (380.12) (H60.331) Resolved Date: 22 Jan 2019 History of Acute UTI (599.0) (N39.0) Resolved Date: 27 Aug 2020 History of Acute vaginitis (616.10) (N76.0) Resolved Date: 24 Aug 2020 History of Cellulitis (682.9) (L03.90) Resolved Date: 01 Sep 2015 History of Chest discomfort (786.59) (R07.89) Resolved Date: 01 Sep 2015 History of Chlamydia trachomatis infection (099.50) (A56.8) Resolved Date: 22 Jan 2019 History of Elevated alkaline phosphatase level (790.5) (R74.8) Resolved Date: 27 Jan 2016 History of Gardnerella vaginitis (616.10,041.89) (N76.0,B96.89) Resolved Date: 24 Apr 2019 History of acute sinusitis (V12.69) (Z87.09) Resolved Date: 24 Apr 2019 History of candidiasis (V12.09) (Z86.19) Resolved Date: 24 Aug 2020 History of dehydration (V12.29) (Z86.39) Resolved Date: 24 Aug 2020 History of depressed bipolar disorder (296.56) (F31.70) Resolved Date: 01 Feb 2022 History of depression (V11.8) (Z86.59) Resolved Date: 24 Aug 2020 History of diarrhea (V12.79) (Z87.898) Resolved Date: 29 Oct 2018 History of fatigue (V13.89) (Z87.898) Resolved Date: 29 Oct 2018 History of folliculitis (V13.3) (Z87.2) Resolved Date: 24 Aug 2020 History of gastroenteritis (V12.79) (Z87.19) Resolved Date: 29 Oct 2018 History of hematuria (V13.09) (Z87.448) Resolved Date: 10 Jan 2022 History of nausea (V12.79) (Z87.898) Resolved Date: 29 Oct 2018 History of sore throat (V12.69) (Z87.09) Resolved Date: 29 Oct 2018 History of vaginal discharge (V13.29) (Z87.42) Resolved Date: 24 Aug 2020 History of vomiting (V13.89) (Z87.898) Resolved Date: 29 Oct 2018 History of Hospital discharge follow-up (V67.59) (Z09) Resolved Date: 22 Jan 2019 History of Hospital discharge follow-up (V67.59) (Z09) Resolved Date: 03 May 2021 History of Immunization due (V05.9) (Z23) Resolved Date: 22 Jan 2019 History of Inguinal adenopathy (785.6) (R59.0) Resolved Date: 24 Aug 2020 History of Rash (782.1) (R21) Resolved Date: 24 Aug 2020 History of Screen for STD (sexually transmitted disease) (V74.5) (Z11.3) Resolved Date: 24 Aug 2020 History of STD exposure (V01.6) (Z20.2) Resolved Date: 14 Nov 2018 History of STD exposure (V01.6) (Z20.2) Resolved Date: 22 Jan 2019 History of STD exposure (V01.6) (Z20.2) Resolved Date: 24 Aug 2020 Surgical History Problems History of Non-Biodegradable Drug Delivery Implant, Insertion History of Tonsillectomy With Adenoidectomy Family History Mother Family history of Anxiety and depression Family history unknown (V49.89) (Z78.9) Father Family history unknown (V49.89) (Z78.9) (more content not included)... Normal [facility] Tobacco Screening.on 023 Adult depression screening assessment No [facility] Work Phone: Fall risk assessment a) No falls within the last year [facility] Work Phone: Tobacco use status CPHS b) No [facility] Work Phone: GC + CHLAMYDIA BY AMPLIFIED DETECTIONon 04-16-2022 CHLAMYDIA TRACH.,AMPLIFIED Negative Normal Negative [facility] Comment on above: Result Comment: The APTIMA Combo 2 assay is FDA-approved for Chlamydia trachomatis and Neisseria gonorrhoeae testing on female endocervical and vaginal swabs, ThinPrep liquid pap samples, male urine samples and urethral swabs. Performance characteristics for Chlamydia trachomatis and Neisseria gonorrhoeae testing on specific xnn-XWS-pjviayfr sample types (female urine samples) have been validated by [facility]. This laboratory is certified by CLIA to perform high complexity testing. Samples from all other sites are not validated for this method. Performed By: #### [facility] #### [facility] [id number] [place] [address] N.GONORRHEA,AMPLIFIED Negative Normal Negative [facility] Comment on above: Result Comment: The APTIMA Combo 2 assay is FDA-approved for Chlamydia trachomatis and Neisseria gonorrhoeae testing on female endocervical and vaginal swabs, ThinPrep liquid pap samples, male urine samples and urethral swabs. Performance characteristics for Chlamydia trachomatis and Neisseria gonorrhoeae testing on specific ecf-TUF-zcdstjwl sample types (female urine samples) have been validated by [facility]. This laboratory is certified by CLIA to perform high complexity testing. Samples from all other sites are not validated for this method. Performed By: #### [facility] #### [facility] [id number] [place] [address] GC + CHLAMYDIA BY AMPLIFIED DETECTIONon 04-15-2022 Lab Specimen Source Urine Normal [facility] Comment on above: Performed By: #### [facility] #### [facility] [address] [place] [address] GC + Chlamydia By Amplified Detectionon 04-15-2022 C. trachomatis rRNA JOSE+probe Ql (Unsp spec) Negative Negative [facility] Work Phone: Comment on above: The APTIMA Combo 2 a ssay is FDA-approved for Chlamydia trachomatis and Neisseria gonorrhoeae testing on female endocervical and vaginal swabs, ThinPrep liquid pap samples, male urine samples and urethral swabs. Performance characteristics for Chlamydia trachomatis and Neisseria gonorrhoeae testing on specific gyl-ZIZ-efigfmbf sample types (female urine samples) have been validated by [facility]. This laboratory is certified by CLIA to perform high complexity testing. Samples from all other sites are not validated for this method. N. gonorrhoeae rRNA JOSE+probe Ql (Unsp spec) Negative Negative [facility] Work Phone: Comment on above: SOURCE: Urine The AP CHARLENE Combo 2 assay is FDA-approved for Chlamydia trachomatis and Neisseria gonorrhoeae testing on female endocervical and vaginal swabs, ThinPrep liquid pap samples, male urine samples and urethral swabs. Performance characteristics for Chlamydia trachomatis and Neisseria gonorrhoeae testing on specific qbr-UBU-exjypkhm sample types (female urine samples) have been validated by [facility]. This laboratory is certified by CLIA to perform high complexity testing. Samples from all other sites are not validated for this method. Office Visiton 04-15-2022 Follow-up visit Diagnoses/Problems Exposure to chlamydia (V01.6) (Z20.2) Vaginitis (616.10) (N76.0) Dysuria (788.1) (R30.0) Orders Dysuria, Exposure to chlamydia, Vaginitis Cult, Urine; Status:Canceled; GC + Chlamydia By Amplified Detection; Status:In Progress - Specimen/Data Collected; Done: 15Apr2022 IO UA (automated w/o microscopy); Status:Resulted - Requires Verification; Done: 15Apr2022 09:50AM Exposure to chlamydia Renew: Doxycycline Monohydrate 100 MG Oral Tablet; TAKE 1 TABLET EVERY 12 HOURS DAILY Immunization due Temporarily Stop: Fluzone Quadrivalent 0.5 ML Intramuscular Suspension Routine screening for STI (sexually transmitted infection) IO HCG, Urine Test; Status:Canceled; Patient Discussion/Summary -check urinalysis, urine culture and GC/Chlam - understanding it is not a first morning sample -assume still positive for Chlamydia based on symptoms -Ceftriaxone not given today because recent gonorrhea testing was negative. -Take doxycycline twice daily with food for 7 days. Get lithium level drawn next week - let the psychiatrist know that you have been on doxycycline recently. 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 She is due to have a lithium level soon, has an order having lower abdominal cramping, urinary urgency, some burning with urination, vaginal discharge, feeling sick to her stomach - these were all present when she was first diagnosed and are now returning. Was sexually active again before treatment was completed. Repeat testing for GC/Chlam patient declines a pelvic exam unless absolutely necessary Active Problems Anxiety, mild (300.00) (F41.9) 2021-Dr Castro Bipolar depression (296.50) (F31.9) Cannabis use disorder (305.20) (F12.90) Cellulitis (682.9) (L03.90) Depression, major, in remission (296.25) (F32.5) 2021-Dr Castro Exposure to chlamydia (V01.6) (Z20.2) Heavy menses due to IUD (996.76,626.2) (T83.89XA,N92.0) Immunization due (V05.9) (Z23) IUD contraception (V45.51) (Z97.5) Tavernier use (V58.69) (Z79.899) Moderate episode of recurrent major depressive disorder (296.32) (F33.1) 2021-Dr Castro Moderately severe major depression (296.23) (F32.2) 2021-Dr Castro Recurrent major depressive disorder, in partial remission (296.35) (F33.41) 2021-Dr Castro Routine screening for STI (sexually transmitted infection) (V74.5) (Z11.3) Screening for cholesterol level (V77.91) (Z13.220) Screening for diabetes mellitus (V77.1) (Z13.1) Vitamin D deficiency (268.9) (E55.9) Past Medical History History of Acute swimmer's ear of right side (380.12) (H60.331) Resolved Date: 22 Jan 2019 History of Acute UTI (599.0) (N39.0) Resolved Date: 27 Aug 2020 History of Acute vaginitis (616.10) (N76.0) Resolved Date: 24 Aug 2020 History of Cellulitis (682.9) (L03.90) Resolved Date: 01 Sep 2015 History of Chest discomfort (786.59) (R07.89) Resolved Date: 01 Sep 2015 History of Chlamydia trachomatis infection (099.50) (A56.8) Resolved Date: 22 Jan 2019 History of Elevated alkaline phosphatase level (790.5) (R74.8) Resolved Date: 27 Jan 2016 History of Gardnerella vaginitis (616.10,041.89) (N76.0,B96.89) Resolved Date: 24 Apr 2019 History of acute sinusitis (V12.69) (Z87.09) Resolved Date: 24 Apr 2019 History of candidiasis (V12.09) (Z86.19) Resolved Date: 24 Aug 2020 History of dehydration (V12.29) (Z86.39) Resolved Date: 24 Aug 2020 History of depressed bipolar disorder (296.56) (F31.70) Resolved Date: 01 Feb 2022 History of depression (V11.8) (Z86.59) Resolved Date: 24 Aug 2020 History of diarrhea (V12.79) (Z87.898) Resolved Date: 29 Oct 2018 History of fatigue (V13.89) (Z87.898) Resolved Date: 29 Oct 2018 History of folliculitis (V13.3) (Z87.2) Resolved Date: 24 Aug 2020 History of gastroenteritis (V12.79) (Z87.19) Resolved Date: 29 Oct 2018 History of hematuria (V13.09) (Z87.448) Resolved Date: 10 Jan 2022 History of nausea (V12.79) (Z87.898) Resolved Date: 29 Oct 2018 History of sore throat (V12.69) (Z87.09) Resolved Date: 29 Oct 2018 History of vaginal discharge (V13.29) (Z87.42) Resolved Date: 24 Aug 2020 History of vomiting (V (more content not included)... Normal [facility] GC + CHLAMYDIA BY AMPLIFIED DETECTIONon 03-31-2022 CHLAMYDIA TRACH.,AMPLIFIED Positive Abnormal Negative [facility] Comment on above: Result Comment: The APTIMA Combo 2 assay is FDA-approved for Chlamydia trachomatis and Neisseria gonorrhoeae testing on female endocervical and vaginal swabs, ThinPrep liquid pap samples, male urine samples and urethral swabs. Performance characteristics for Chlamydia trachomatis and Neisseria gonorrhoeae testing on specific uta-ZJE-edvhttff sample types (female urine samples) have been validated by [facility]. This laboratory is certified by CLIA to perform high complexity testing. Samples from all other sites are not validated for this method. This assay has not been FDA-approved or validated for this sample type. Results should be interpreted with caution in conjunction with additional clinical and laboratory findings. Performed By: #### [facility] #### [facility] [id number] [place] [address] N.GONORRHEA,AMPLIFIED Negative Normal Negative [facility] Comment on above: Result Comment: The APTIMA Combo 2 assay is FDA-approved for Chlamydia trachomatis and Neisseria gonorrhoeae testing on female endocervical and vaginal swabs, ThinPrep liquid pap samples, male urine samples and urethral swabs. Performance characteristics for Chlamydia trachomatis and Neisseria gonorrhoeae testing on specific naj-QNG-suhhviks sample types (female urine samples) have been validated by [facility]. This laboratory is certified by CLIA to perform high complexity testing. Samples from all other sites are not validated for this method. This assay has not been FDA-approved or validated for this sample type. Results should be interpreted with caution in conjunction with additional clinical and laboratory findings. Performed By: #### [facility] #### [facility] [id number] [place] [address] GC + CHLAMYDIA BY AMPLIFIED DETECTIONon 03-29-2022 Lab Specimen Source Source, Unspecified Normal [facility] Comment on above: Performed By: #### [facility] #### [facility] [address] [place] [address] GC + Chlamydia By Amplified Detectionon 03-29-2022 C. trachomatis rRNA JOSE+probe Ql (Unsp spec) Positive Abnormal Negative [facility] Work Phone: Comment on above: The APTIMA Combo 2 a ssay is FDA-approved for Chlamydia trachomatis and Neisseria gonorrhoeae testing on female endocervical and vaginal swabs, ThinPrep liquid pap samples, male urine samples and urethral swabs. Performance characteristics for Chlamydia trachomatis and Neisseria gonorrhoeae testing on specific ruq-NCH-olrjkiza sample types (female urine samples) have been validated by [facility]. This laboratory is certified by CLIA to perform high complexity testing. Samples from all other sites are not validated for this method.This assay has not been FDA-approved or validated for this sample type. Results should be interpreted with caution in conjunction with additional clinical and laboratory findings. N. gonorrhoeae rRNA JOSE+probe Ql (Unsp spec) Negative Negative [facility] Work Phone: Comment on above: SOURCE: Source, Unsp ecified The APTIMA Combo 2 assay is FDA-approved for Chlamydia trachomatis and Neisseria gonorrhoeae testing on female endocervical and vaginal swabs, ThinPrep liquid pap samples, male urine samples and urethral swabs. Performance characteristics for Chlamydia trachomatis and Neisseria gonorrhoeae testing on specific yzw-HGW-ryscndfx sample types (female urine samples) have been validated by [facility]. This laboratory is certified by CLIA to perform high complexity testing. Samples from all other sites are not validated for this method.This assay has not been FDA-approved or validated for this sample type. Results should be interpreted with caution in conjunction with additional clinical and laboratory findings. Office Visit (Urgent Care)on 03-29-2022 Follow-up visit Diagnoses/Problems Assessed Exposure to chlamydia (V01.6) (Z20.2) Heavy menses due to IUD (996.76,626.2) (T83.89XA,N92.0) Orders Exposure to chlamydia Start: Doxycycline Monohydrate 100 MG Oral Tablet; TAKE 1 TABLET EVERY 12 HOURS DAILY Rx By: Angella Izaguirre; Dispense: 7 Days ; #:14 Tablet; Refill: 0;For: Exposure to chlamydia; ANIA = N; Verified Transmission to [facility] [place] [address]; Last Updated By: Darien Norman; 03/29/2022 3:36:54 PM Administer: CefTRIAXone Sodium 500 MG Injection Solution Reconstituted; INJECT 500 MG Intramuscular; To Be Done: 29Mar2022 Rx By: Angella Izaguirre;For: Exposure to chlamydia; ANIA = N; Request Administration Patient Discussion/Summary Please see your primary care physician in 2-3 days. Recommend annual pelvic and PAP with your [facility] specialist. Please monitor lithium level while taking doxycycline (contact prescribing specialist). Provider Impressions 22-year-old female presents after exposure to chlamydia. She is currently on her menses. She states she does get annual exams and currently has an IUD. Urine testing for GC and chlamydia obtained. Urine hCG negative. Rocephin 500 mg IM. Rx for doxycycline. Drug interaction wrapping checker performed. Discussed use of azithromycin versus doxycycline. Instructed to monitor lithium levels during course of therapy with doxycycline. Contact psychiatrist for further recommendation. Chief Complaint Chief Complaints Visit For: Other History of Present Illness 22-year-old female presents for evaluation after being told that her partner tested positive for chlamydia. She is unsure if she really has any symptoms associated with the chlamydia because she states she is currently on her menses. She has some mid abdominal cramping. No other vaginal discharge or bleeding. No fever or chills but has reported a sore throat as well as right ear pain. She was treated in the past for chlamydia with azithromycin. Opts for STI treatment and testing for both gonorrhea and chlamydia. States she sees a provider annually for Pap screening ROS: 7 body systems reviewed and otherwise negative unless dictated in the history of present illness. Review of Systems Constitutional: as noted in HPI. Active Problems Problems Anxiety, mild (300.00) (F41.9) 2021-Dr Castro Bipolar depression (296.50) (F31.9) Cannabis use disorder (305.20) (F12.90) Cellulitis (682.9) (L03.90) Depression, major, in remission (296.25) (F32.5) 2021-Dr Castro Immunization due (V05.9) (Z23) IUD contraception (V45.51) (Z97.5) Tavernier use (V58.69) (Z79.899) Moderate episode of recurrent major depressive disorder (296.32) (F33.1) 2021-Dr Castro Moderately severe major depression (296.23) (F32.2) 2021-Dr Castro Recurrent major depressive disorder, in partial remission (296.35) (F33.41) 2021-Dr Castro Screening for cholesterol level (V77.91) (Z13.220) Screening for diabetes mellitus (V77.1) (Z13.1) Vitamin D deficiency (268.9) (E55.9) Past Medical History Problems History of Acute swimmer's ear of right side (380.12) (H60.331) Resolved Date: 22 Jan 2019 History of Acute UTI (599.0) (N39.0) Resolved Date: 27 Aug 2020 History of Acute vaginitis (616.10) (N76.0) Resolved Date: 24 Aug 2020 History of Cellulitis (682.9) (L03.90) Resolved Date: 01 Sep 2015 History of Chest discomfort (786.59) (R07.89) Resolved Date: 01 Sep 2015 History of Chlamydia trachomatis infection (099.50) (A56.8) Resolved Date: 22 Jan 2019 History of Elevated alkaline phosphatase level (790.5) (R74.8) Resolved Date: 27 Jan 2016 History of Gardnerella vaginitis (616.10,041.89) (N76.0,B96.89) Resolved Date: 24 Apr 2019 History of acute sinusitis (V12.69) (Z87.09) Resolved Date: 24 Apr 2019 History of candidiasis (V12.09) (Z86.19) Resolved Date: 24 Aug 2020 History of dehydration (V12.29) (Z86.39) Resolved Date: 24 Aug 2020 History of depressed bipolar disorder (296.56) (F31.70) Resolved Date: 01 Feb 2022 History of depression (V11.8) (Z86.59) Resolved Date: 24 Aug 2020 History of diarrhea (V12.79) (Z87.898) Resolved Date: 29 Oct 2018 History of dysuria (V13.00) (Z87.898) Resolved Date: 24 Aug 2020 History of fatigue (V13.89) (Z87.898) Resolved Date: 29 Oct 2018 History of folliculitis (V13.3) (Z87.2) Resolved Date: 24 Aug 2020 History of gastroenteritis (V12.79) (Z87.19) Resolved Date: 29 Oct 2018 History of hematuria (V13.09) (Z87.448) Resolved Date: 10 Jan 2022 History of nausea (V12.79) (Z87.898) Resolved Date: 29 Oct 2018 History of sore throat (V12.69) (Z87.09) Resolved Date: 29 Oct 2018 History of vaginal discharge (V13.29) (Z87.42) Resolved Date: 24 Aug 2020 History of vaginitis (V13.29) (Z87.42) Resolved Date: 24 Aug 2020 History of vomiting (V13.89) (Z87.898) Resolved Date: 29 Oct 2018 History of Hospital discharge follow-up (V67.59) (Z09) Resolved Date: 22 Jan 2019 History of Hospital discharge follow-up (V67.59) (Z0 (more content not included)... Normal [facility] Tobacco Screening.on 022 Adult depression screening assessment No [facility] Work Phone: Fall risk assessment a) No falls within the last year [facility] Work Phone: Tobacco use status CPHS b) No [facility] Work Phone: Psychiatry Adulton 2 Psychiatry Adult Diagnoses/Problems Assessed IUD contraception (V45.51) (Z97.5) Tavernier use (V58.69) (Z79.899) Bipolar depression (296.50) (F31.9) Anxiety, mild (300.00) (F41.9) Dr Castro Orders Anxiety, mild Renew: busPIRone HCl - 30 MG Oral Tablet; TAKE 1 TABLET TWICE DAILY Anxiety, mild, Depression, major, in remission Renew: traZODone HCl - 150 MG Oral Tablet; TAKE 1 TABLET AT BEDTIME Bipolar depression Renew: buPROPion HCl ER (XL) 150 MG Oral Tablet Extended Release 24 Hour; TAKE 1 TABLET TWICE DAILY Renew: QUEtiapine Fumarate 300 MG Oral Tablet; TAKE 1 TABLET AT BEDTIME Bipolar depression, Tavernier use Renew: Tavernier Carbonate 150 MG Oral Capsule; TAKE 1 CAPSULE TWICE DAILY Tavernier use Tavernier Level, Serum; Status:Hold For - Exact Date; Requested for:After 01Feb2022 03:08 PM; PMH: History of depressed bipolar disorder, Tavernier use Renew: QUEtiapine Fumarate ER 300 MG Oral Tablet Extended Release 24 Hour; take 1 tablet nightly Provider Impressions 21yo F with history of depression, generalized anxiety and substance use who presents for follow up. She was diagnosed with bipolar 2 disorder at a recent admission. She has not used substances (except tobacco) in 2.5 months. Risk factors for suicide completion include prior attempt (May 2019), and uncontrolled psychiatric illness (i.e. depression). Protective factors include family support, employment and help-seeking behavior. Given recent diagnosis of bipolar 2 disorder and continued depressive symptoms (without anxiety), she requires treatment targeting bipolar depression. Plan to raise quetiapine to 300mg nightly with preference for XR formulation. Impression: 1. Bipolar depression, active 2. ABIMAEL, in remission Plan: 1. Raise quetiapine IR to 300mg nightly. Also ordered quetiapine XR 300mg nightly, but anticipate prior authorization 2. Continue Wellbutrin XL 150mg BID, lithium carbonate 150mg BID, buspirone 30mg BID, trazodone 150mg nightly 3. Obtain lithium level (ordered) 4. Refer for longitudinal psychiatrist 5. RTC 03/22/22 at 1pm via zoom. Case discussed with attending physician Dr. Guillory. Chief Complaint An interactive audio and video telecommunication system which permits real time communications between the patient (at the originating site) and provider (at the distant site) was utilized to provide this telehealth service. History of Present Illness She was admitted once psychiatrically in November for suicidal ideation; she was diagnosed with bipolar 2 disorder there. She was discharged to a rehab program in [place] for 12 days, then transferred to [facility] for high level of care. She spent 30 days in rehab in [place] and discharged on 01/07/22. She now takes: Wellbutrin XL 150mg BID, lithium carbonate 150mg BID, buspirone 30mg BID, trazodone 150mg nightly, quetiapine 200mg nightly. She says she is tolerating her current medications. She continues to feel depressed per self report. She has been sleeping more than before. It it difficult to get out of bed. Energy is low. Appetite is good - she has 2 meals per day. She feels sluggish sometimes. Concentration is poor. She used to enjoying making crafts, crocheting, going out; she does not enjoy anything now. She denies anxiety or worries. She smokes cigarettes but she has not used other substances since 11/12/21. I have personally reviewed the OARRS report for SARAN MENDEZ. I have considered the risks of abuse, dependence, addiction and diversion. Review of Systems Depressive Symptoms: depressed /irritable mood, diminished interest, recent few lb weight gain, fatigue, poor concentration, but no insomnia. Active Problems Problems Anxiety, mild (300.00) (F41.9) 2021-Dr Castro Cannabis use disorder (305.20) (F12.90) Cellulitis (682.9) (L03.90) Depression, major, in remission (296.25) (F32.5) 2021-Dr Castro Immunization due (V05.9) (Z23) IUD contraception (V45.51) (Z97.5) Moderate episode of recurrent major depressive disorder (296.32) (F33.1) 2021-Dr Castro Moderately severe major depression (296.23) (F32.2) 2021-Dr Castro Recurrent major depressive disorder, in partial remission (296.35) (F33.41) 2021-Dr Castro Screening for cholesterol level (V77.91) (Z13.220) Screening for diabetes mellitus (V77.1) (Z13.1) Vitamin D deficiency (268.9) (E55.9) Past Medical History Problems History of Acute swimmer's ear of right side (380.12) (H60.331) Resolved Date: 22 Jan 2019 History of Acute UTI (599.0) (N39.0) Resolved Date: 27 Aug 2020 History of Acute vaginitis (616.10) (N76.0) Resolved Date: 24 Aug 2020 History of Cellulitis (682.9) (L03.90) Resolved Date: 01 Sep 2015 History of Chest discomfort (786.59) (R07.89) Resolved Date: 01 Sep 2015 History of Chlamydia trachomatis infection (099.50) (A56.8) Resolved Date: 22 Jan 2019 History of Elevated alkaline phosphatase level (790.5) (R74.8) Resolved Date: 27 Jan 2016 History of Gardnerel (more content not included)... Normal [facility] Blood Pressure Cuff Sizeon 0 01-12-2022 Adult depression screening assessment Yes [facility] Work Phone: Blood Pressure Cuff Size Adult [facility] Work Phone: Blood Pressure Cuff Size 3-Nearly every day [facility] Work Phone: Blood Pressure Cuff Size 1-Several days [facility] Work Phone: Blood Pressure Cuff Size Extremely Difficult [facility] Work Phone: No Panel Informationon 01-12 Several days - 1 [facility] Work Phone: Nearly every day - 3 -[facility] Work Phone: Not at all - 0 [facility] Work Phone: Over half the days - 2 [facility] Work Phone: Moderate Anxiety [facility] Work Phone: Somewhat difficult [facility] Work Phone: Comment on above: How difficult have t hose problems made it for you to do your work, take care of things at home, or get along with other people? 13 1 [facility] Work Phone: Comment on above: Over the last two we eks, how often have you been bothered by the following problems? Feeling nervous, anxious, or on edge: Over half the days - 2Not being able to stop or control worrying: Over half the days - 2Worrying too much about different things: Nearly every day - 3Trouble relaxing: Over half the days - 2Being so restless that it's hard to sit still: Not at all - 0Becoming easily annoyed or irritable: Nearly every day - 3Feeling afraid as if something awful might happen: Several days - 1 Office Visit (Primary Care T xt/Forms)on 01-12-2022 Follow-up visit Diagnoses/Problems Assessed Vitamin D deficiency (268.9) (E55.9) Immunization due (V05.9) (Z23) Orders Vitamin D deficiency Start: Vitamin D (Ergocalciferol) 1.25 MG (25958 UT) Oral Capsule; TAKE 1 CAPSULE Weekly Vitamin D 25-Hydroxy; Status:Active; Requested for:12Jan2022; Patient Discussion/Summary take vitamin D- recheck in 4 months discussed options to call if worsens - suicide prevention information and phone numbers given keep appointment with Psychiatrist follow up in 4-6 weeks Provider Impressions Provider Impressions Free Text Note Form: The number and complexity of problems addressed is considered moderate. The amount and/or complexity of data reviewed and analyzed is considered moderate. The risk of complications and/or morbidity/mortality of patient is considered moderate. Overall, this patient encounter is considered a moderate risk visit. patient gave verbal statement- that she will not harm herself - has no plan and no intent discussed pt /consulted with Kavin today informally Chief Complaint pt presents for f/u anxiety History of Present Illness pt is here for worsening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 Continue trazodone 150mg nightly prn 3. Substance treatment contact provided ([phone]) 4. Return to primary care Chief Complaint An interactive audio and video telecommunication system which permits real time communications between the patient (at the originating site) and provider (at the distant site) was utilized to provide this telehealth service. Follow up for MDD and ABIMAEL History of Present Illness 21yo F with history of depression and generalized anxiety who presents for continued medication management. Since the last visit, when venlafaxine was increased, skin picking has decreased. Mood has improved somewhat as well. Sleep has also improved; she feels rested.mostly. She continues to have feelings of guilt/worthlessness at times. Energy level has improved but it still varies per pt. Appetite has not changed significantly. Concentration has improved. Anxiety has no improved. Since the last visit (08/17), she has had 10 or less panic attacks, lasting 10 minutes or so. She continues to use methamphetamine twice weekly, most recently a few days ago. She has not engaged with substance use treatment yet. She also uses cannabis daily. I have personally reviewed the OARRS report for SARAN MENDEZ. I have considered the risks of abuse, dependence, addiction and diversion. Active Problems Problems Anxiety, mild (300.00) (F41.9) 2021-Dr Castro Cellulitis (682.9) (L03.90) Depression, major, in remission (296.25) (F32.5) 2021-Dr Castro Hematuria (599.70) (R31.9) Immunization due (V05.9) (Z23) Moderate episode of recurrent major depressive disorder (296.32) (F33.1) 2021-Dr Castro Moderately severe major depression (296.23) (F32.2) 2021-Dr Castro Recurrent major depressive disorder, in partial remission (296.35) (F33.41) 2021-Dr Castro Screening for cholesterol level (V77.91) (Z13.220) Screening for diabetes mellitus (V77.1) (Z13.1) Past Medical History Problems History of Acute swimmer's ear of right side (380.12) (H60.331) Resolved Date: 22 Jan 2019 History of Acute UTI (599.0) (N39.0) Resolved Date: 27 Aug 2020 History of Acute vaginitis (616.10) (N76.0) Resolved Date: 24 Aug 2020 History of Cellulitis (682.9) (L03.90) Resolved Date: 01 Sep 2015 History of Chest discomfort (786.59) (R07.89) Resolved Date: 01 Sep 2015 History of Chlamydia trachomatis infection (099.50) (A56.8) Resolved Date: 22 Jan 2019 History of Elevated alkaline phosphatase level (790.5) (R74.8) Resolved Date: 27 Jan 2016 History of Gardnerella vaginitis (616.10,041.89) (N76.0,B96.89) Resolved Date: 24 Apr 2019 History of acute sinusitis (V12.69) (Z87.09) Resolved Date: 24 Apr 2019 History of candidiasis (V12.09) (Z86.19) Resolved Date: 24 Aug 2020 History of dehydration (V12.29) (Z86.39) Resolved Date: 24 Aug 2020 History of depression (V11.8) (Z86.59) Resolved Date: 24 Aug 2020 History of diarrhea (V12.79) (Z87.898) Resolved Date: 29 Oct 2018 History of dysuria (V13.00) (Z87.898) Resolved Date: 24 Aug 2020 History of fatigue (V13.89) (Z87.898) Resolved Date: 29 Oct 2018 History of folliculitis (V13.3) (Z87.2) Resolved Date: 24 Aug 2020 History of gastroenteritis (V12.79) (Z87.19) Resolved Date: 29 Oct 2018 History of nausea (V12.79) (Z87.898) Resolved Date: 29 Oct 2018 History of sore throat (V12.69) (Z87.09) Resolved Date: 29 Oct 2018 History of vaginal discharge (V13.29) (Z87.42) Resolved Date: 24 Aug 2020 History of vaginitis (V13.29) (Z87.42) Resolved Date: 24 Aug 2020 History of vomiting (V13.89) (Z87.898) Resolved Date: 1 (more content not included)... Normal [facility] (Urgent Care)on 09-27-2021 Follow-up visit Diagnoses/Problems Assessed Cellulitis (682.9) (L03.90) Orders Cellulitis Start: Cephalexin 500 MG Oral Capsule; TAKE 1 CAPSULE 3 TIMES DAILY UNTIL GONE Rx By: Serene Alexander; Dispense: 10 Days ; #:30 Capsule; Refill: 0;For: Cellulitis; ANIA = N; Sent To: [facility]; Last Updated By: [employer]; 09/27/2021 2:51:46 PM Patient Discussion/Summary Please see your primary care physician in days. as needed Daily wash, apply antibiotic ointment, and bandages to the affected area. Follow-up with the person that treats your anxiety symptoms to discuss the compulsive scratching. Seek follow-up medical care if symptoms worsen or do not resolve. Chief Complaint Chief Complaints Visit For: Other History of Present Illness 21-year-old female who apparently deals with a compulsion of scratching scabs on her skin. She has been doing that on her right arm region and is concerned about some areas that have become blistered and painful. No fever. Review of systems is otherwise negative for constitutional, ear nose and throat, neck, heart, lungs, and abdomen. Review of Systems Constitutional: as noted in HPI. Active Problems Problems Anxiety, mild (300.00) (F41.9) Depression, major, in remission (296.25) (F32.5) Drug addiction (304.90) (F19.20) Hematuria (599.70) (R31.9) Immunization due (V05.9) (Z23) Moderate episode of recurrent major depressive disorder (296.32) (F33.1) Moderately severe major depression (296.23) (F32.2) Recurrent major depressive disorder, in partial remission (296.35) (F33.41) Screening for cholesterol level (V77.91) (Z13.220) Screening for diabetes mellitus (V77.1) (Z13.1) Past Medical History Problems History of Acute swimmer's ear of right side (380.12) (H60.331) Resolved Date: 22 Jan 2019 History of Acute UTI (599.0) (N39.0) Resolved Date: 27 Aug 2020 History of Acute vaginitis (616.10) (N76.0) Resolved Date: 24 Aug 2020 History of Cellulitis (682.9) (L03.90) Resolved Date: 01 Sep 2015 History of Chest discomfort (786.59) (R07.89) Resolved Date: 01 Sep 2015 History of Chlamydia trachomatis infection (099.50) (A56.8) Resolved Date: 22 Jan 2019 History of Elevated alkaline phosphatase level (790.5) (R74.8) Resolved Date: 27 Jan 2016 History of Gardnerella vaginitis (616.10,041.89) (N76.0,B96.89) Resolved Date: 24 Apr 2019 History of acute sinusitis (V12.69) (Z87.09) Resolved Date: 24 Apr 2019 History of candidiasis (V12.09) (Z86.19) Resolved Date: 24 Aug 2020 History of dehydration (V12.29) (Z86.39) Resolved Date: 24 Aug 2020 History of depression (V11.8) (Z86.59) Resolved Date: 24 Aug 2020 History of diarrhea (V12.79) (Z87.898) Resolved Date: 29 Oct 2018 History of dysuria (V13.00) (Z87.898) Resolved Date: 24 Aug 2020 History of fatigue (V13.89) (Z87.898) Resolved Date: 29 Oct 2018 History of folliculitis (V13.3) (Z87.2) Resolved Date: 24 Aug 2020 History of gastroenteritis (V12.79) (Z87.19) Resolved Date: 29 Oct 2018 History of nausea (V12.79) (Z87.898) Resolved Date: 29 Oct 2018 History of sore throat (V12.69) (Z87.09) Resolved Date: 29 Oct 2018 History of vaginal discharge (V13.29) (Z87.42) Resolved Date: 24 Aug 2020 History of vaginitis (V13.29) (Z87.42) Resolved Date: 24 Aug 2020 History of vomiting (V13.89) (Z87.898) Resolved Date: 29 Oct 2018 History of Hospital discharge follow-up (V67.59) (Z09) Resolved Date: 22 Jan 2019 History of Hospital discharge follow-up (V67.59) (Z09) Resolved Date: 03 May 2021 History of Immunization due (V05.9) (Z23) Resolved Date: 22 Jan 2019 History of Inguinal adenopathy (785.6) (R59.0) Resolved Date: 24 Aug 2020 History of Rash (782.1) (R21) Resolved Date: 24 Aug 2020 History of Screen for STD (sexually transmitted disease) (V74.5) (Z11.3) Resolved Date: 24 Aug 2020 History of STD exposure (V01.6) (Z20.2) Resolved Date: 14 Nov 2018 History of STD exposure (V01.6) (Z20.2) Resolved Date: 22 Jan 2019 History of STD exposure (V01.6) (Z20.2) Resolved Date: 24 Aug 2020 Surgical History Problems History of Non-Biodegradable Drug Delivery Implant, Insertion History of Tonsillectomy With Adenoidectomy Family History Mother Family history of Anxiety and depression Family history unknown (V4.) (Z78.9) Father Family history unknown (V4) (Z78.9) Social History Problems History of Does not use illicit drugs (V4.) (Z78.9) History of Does not use tobacco (V4) (Z78.9) Lives with parents History of Never a smoker History of Never smoker No alcohol use History of Non-smoker (V49.89) (Z78.9) Student Allergies Medication No Known Drug Allergies Recorded By: Sowmya Daniel; 08/22/2013 11:33:13 AM Current Meds Medication NameInstruction traZODone HCl - 150 MG Oral TabletTAKE 1 TABLET AT BEDTIME. Venlafaxine HCl ER 150 MG Oral Capsule Extended Release 24 HourTAKE 1 CAPSULE ONCE DAILY WITH FOOD. (more content not included)... Normal [facility] Tobacco Screening.on 022 Adult depression screening assessment No [facility] Work Phone: Tobacco use status [facility] b) No [facility] Work Phone: Psychiatry Adulton 2 Psychiatry Adult Diagnoses/Problems Assessed Anxiety, mild (300.00) (F41.9) Depression, major, in remission (296.25) (F32.5) Orders Anxiety, mild, Depression, major, in remission Start: traZODone HCl - 150 MG Oral Tablet; TAKE 1 TABLET AT BEDTIME Start: Venlafaxine HCl ER 150 MG Oral Capsule Extended Release 24 Hour; TAKE 1 CAPSULE ONCE DAILY WITH FOOD Start: Venlafaxine HCl ER 75 MG Oral Capsule Extended Release 24 Hour; TAKE 1 CAPSULE ONCE DAILY WITH FOOD Provider Impressions 21yo F with history of depression and generalized anxiety who presents for medication management and substance use treatment. She reports partial response to venlafaxine and no adverse effects. She continues to have depressive symptoms for the past month. She also has an extensive history of substance use and requests treatment; she currently uses cannabis daily and methamphetamine occasionally. Risk factors for suicide completion include substance use and undertreated psychiatric illness. Protective factors include family support and help-seeking behavior. Impression: 1. MDD, in partial remission 2. ABIMAEL, in partial remission 3. Cannabis use disorder 4. Stimulant use 5. History of polysubstance use Plan: 1. Raise venlafaxine ER to 225mg daily, given partial response and no adverse effects 2. Refill trazodone 150mg nightly prn for sleep onset 3. Refer for substance use treatment (confirmed via email) 4. Return to primary care; pt expressed understanding Chief Complaint An interactive audio and video telecommunication system which permits real time communications between the patient (at the originating site) and provider (at the distant site) was utilized to provide this telehealth service. Medication management, substance use History of Present Illness 21yo F presents for continued depression and anxiety management. She says she began feeling depressed in 5th grade; she developed anxiety during her freshman year of high school. She began seeing a therapist at that time, usually once weekly. She tried Zoloft in high school for 6 months without significant benefit. She subsequently took Prozac for 9-12 months but the perceived benefit reached a plateau. She began using cannabis at 15yo. See below for substance history. She reports multiple depressive symptoms (low mood, poor appetite, fatigue, guilt/worthlessness, poor concentration) for >1 month now. She says venlafaxine helps. She requests increase in venlafaxine ER and refill in trazodone. She denies adverse effects of medications. I have personally reviewed the OARRS report for SARAN MENDEZ. I have considered the risks of abuse, dependence, addiction and diversion. Is the patient prescribed a combination of a benzodiazepine and opioid? No. Review of Systems Depressive Symptoms: depressed /irritable mood, change in appetite, recent lb weight loss, fatigue, feeling worthlessness / guilt, poor concentration, but no suicidal ideation, no guns or weapons in household. Psychotic Symptoms: no hallucinations, no delusions, no disorganized speech, no negative symptoms. Anxiety Symptoms: panic attacks . 1 panic attack every 1-2 months, skinpicking exacerbated by substance use. Active Problems Problems Anxiety, mild (300.00) (F41.9) Depression, major, in remission (296.25) (F32.5) Drug addiction (304.90) (F19.20) Hematuria (599.70) (R31.9) Immunization due (V05.9) (Z23) Moderate episode of recurrent major depressive disorder (296.32) (F33.1) Moderately severe major depression (296.23) (F32.2) Recurrent major depressive disorder, in partial remission (296.35) (F33.41) Screening for cholesterol level (V77.91) (Z13.220) Screening for diabetes mellitus (V77.1) (Z13.1) Past Medical History Problems History of Acute swimmer's ear of right side (380.12) (H60.331) Resolved Date: 22 Jan 2019 History of Acute UTI (599.0) (N39.0) Resolved Date: 27 Aug 2020 History of Acute vaginitis (616.10) (N76.0) Resolved Date: 24 Aug 2020 History of Cellulitis (682.9) (L03.90) Resolved Date: 01 Sep 2015 History of Chest discomfort (786.59) (R07.89) Resolved Date: 01 Sep 2015 History of Chlamydia trachomatis infection (099.50) (A56.8) Resolved Date: 22 Jan 2019 History of Elevated alkaline phosphatase level (790.5) (R74.8) Resolved Date: 27 Jan 2016 History of Gardnerella vaginitis (616.10,041.89) (N76.0,B96.89) Resolved Date: 24 Apr 2019 History of acute sinusitis (V12.69) (Z87.09) Resolved Date: 24 Apr 2019 History of candidiasis (V12.09) (Z86.19) Resolved Date: 24 Aug 2020 History of dehydration (V12.29) (Z86.39) Resolved Date: 24 Aug 2020 History of depression (V11.8) (Z86.59) Resolved Date: 24 Aug 2020 History of diarrhea (V12.79) (Z87.898) Resolved Date: 29 Oct 2018 History of dysuria (V13.00) (Z87.898) Resolved Date: 24 Aug 2020 History of fatigue (V13.89) (Z87.898) Resolved Date: 29 Oct 2018 History of folliculitis (V13.3) (Z87.2) Resolved Date: 24 August (more content not included)... Normal [facility] GLUCOSEon 05-31-2021 Glucose [Mass/Vol] 80 mg/dL Normal 74 - 99 [facility] Comment on above: Performed By: #### G ASIA #### [facility] [id number] [place] [address] Glucose, Serumon 05-31-2021 Glucose [Mass/Vol] 80 mg/dL 74 - 99 [facility] Work Phone: LIPID PANEL (CORONARY RISK 2 )on 05-31-2021 Cholesterol [Mass/Vol] 163 mg/dL Normal 0 - 199 [facility] Comment on above: Result Comment: . AGE DESIRABLE BORDERLINE HIGH HIGH 0-19 Y 0 - 169 170 - 199 >/= 200 20-24 Y 0 - 189 190 - 224 >/= 225 >24 Y 0 - 199 200 - 239 >/= 240 All ranges are based on fasting samples. Specific therapeutic targets will vary based on patient-specific cardiac risk. . Pediatric guidelines reference:Pediatrics 2011, 128(S5). Adult guidelines reference: NCEP ATPIII Guidelines, DARWIN 2001, 258:2486-97 . Venipuncture immediately after or during the administration of Metamizole may lead to falsely low results. Testing should be performed immediately prior to Metamizole dosing. Performed By: #### L IPID #### [facility] [id number] [place] [address] Cholesterol in HDL [Mass/Vol] 31.5 mg/dL Abnormal [facility] Comment on above: Result Comment: . AGE VERY LOW LOW NORMAL HIGH 0-19 Y < 35 < 40 40-45 ---- 20-24 Y ---- < 40 >45 ---- >24 Y ---- < 40 40-60 >60 . Performed By: #### L IPID #### [facility] [id number] [place] [address] Cholesterol in LDL [Mass/Vol] 115 mg/dL Normal 0 - 119 [facility] Comment on above: Result Comment: . NEAR BORD AGE DESIRABLE OPTIMAL HIGH HIGH VERY HIGH 0-19 Y 0 - 109 --- 110-129 >/= 130 ---- 20-24 Y 0 - 119 --- 120-159 >/= 160 ---- >24 Y 0 - 99 100-129 130-159 160-189 >/=190 . Performed By: #### L IPID #### [facility] [id number] [place] [address] Cholesterol in VLDL [Mass/Vol] 16 mg/dL Normal 0 - 40 [facility] Comment on above: Performed By: #### L IPID #### [facility] [id number] [place] [address] Cholesterol.total/Cho lesterol in HDL [Mass ratio] 5.2 {ratio} Abnormal [facility] Comment on above: Result Comment: REF VALUES DESIRABLE < 3.4 HIGH RISK > 5.0 Performed By: #### L IPID #### [facility] [address] [place] [address] NON-HDL CHOLESTEROL 132 mg/dL Normal 0 - 149 [facility] Comment on above: Result Comment: AGE DESIRABLE BORDERLINE HIGH HIGH VERY HIGH 0-19 Y 0 - 119 120 - 144 >/= 145 >/= 160 20-24 Y 0 - 149 150 - 189 >/= 190 ---- >24 Y 30 MG/DL ABOVE LDL CHOLESTEROL GOAL . Performed By: #### L IPID #### [facility] [id number] [place] [address] Triglyceride [Mass/Vol] 82 mg/dL Normal 0 - 149 [facility] Comment on above: Result Comment: . AGE DESIRABLE BORDERLINE HIGH HIGH VERY HIGH 0 D-90 D 19 - 174 ---- ---- ---- 91 D- 9 Y 0 - 74 75 - 99 >/= 100 ---- 10-19 Y 0 - 89 90 - 129 >/= 130 ---- 20-24 Y 0 - 114 115 - 149 >/= 150 ---- >24 Y 0 - 149 150 - 199 200- 499 >/= 500 . Venipuncture immediately after or during the administration of Metamizole may lead to falsely low results. Testing should be performed immediately prior to Metamizole dosing. Performed By: #### L IPID #### [facility] [address] [place] [address] Lipid Panelon 05-31-2021 Cholesterol [Mass/Vol] 163 mg/dL 0 - 199 [facility] Work Phone: Comment on above: . AGE DESIRABLE BORD CHUCK HIGH HIGH 0-19 Y 0 - 169 170 - 199 >/= 200 20-24 Y 0 - 189 190 - 224 >/= 225 >24 Y 0 - 199 200 - 239 >/= 240 All ranges are based on fasting samples. Specific therapeutic targets will vary based on patient-specific cardiac risk.. Pediatric guidelines reference:Pediatrics 2011, 128(S5). Adult guidelines reference: NCEP ATPIII Guidelines, DARWIN 2001, 258:2486-97. Venipuncture immediately after or during the administration of Metamizole may lead to falsely low results. Testing should be performed immediately prior to Metamizole dosing. Cholesterol in HDL [Mass/Vol] 31.5 mg/dL Abnormal [facility] Work Phone: Comment on above: . AGE VERY LOW LOW N ORMAL HIGH 0-19 Y < 35 < 40 40-45 ---- 20- 24 Y ---- < 40 >45 ---- >24 Y ---- < 40 40-60 >60. Cholesterol in LDL [Mass/Vol] 115 mg/dL 0 - 119 [facility] Work Phone: Comment on above: . NEAR BORD AGE VASQUEZ RABLE OPTIMAL HIGH HIGH VERY HIGH 0-19 Y 0 - 109 --- 110-129 >/= 130 ---- 20-24 Y 0 - 119 --- 120-159 >/= 160 ---- >24 Y 0 - 99 100-129 130-159 160-189 >/=190. Cholesterol non HDL [Mass/Vol] 132 mg/dL 0 - 149 [facility] Work Phone: Comment on above: AGE DESIRABLE BORDER LINE HIGH HIGH VERY HIGH 0-19 Y 0 - 119 120 - 144 >/= 145 >/= 160 20-24 Y 0 - 149 150 - 189 >/= 190 ---- >24 Y 30 MG/DL ABOVE LDL CHOLESTEROL GOAL. Cholesterol.total/Cho lesterol in HDL [Mass ratio] 5.2 {ratio} Abnormal [facility] Work Phone: Comment on above: REF VALUESDESIRABLE < 3.4HIGH RISK > 5.0 Triglyceride [Mass/Vol] 82 mg/dL 0 - 149 [facility] Work Phone: Comment on above: . AGE DESIRABLE BORD CHUCK HIGH HIGH VERY HIGH 0 D-90 D 19 - 174 ---- ---- ----91 D- 9 Y 0 - 74 75 - 99 >/= 100 ---- 10-19 Y 0 - 89 90 - 129 >/= 130 ---- 20-24 Y 0 - 114 115 - 149 >/= 150 ---- >24 Y 0 - 149 150 - 199 200- 499 >/= 500. Venipuncture immediately after or during the administration of Metamizole may lead to falsely low results. Testing should be performed immediately prior to Metamizole dosing. Lipid Panel 16 mg/dL 0 - 40 [facility] Work Phone: Tobacco Screening.on 022 Adult depression screening assessment Yes [facility] Work Phone: Tobacco use status CP b) No [facility] Work Phone: Tobacco Screening. Adult [facility] Work Phone: Blood Pressure Cuff Sizeon 1 - Last menstrual period start date 19Jan2021 [facility] [place] Work Phone: Tobacco use status [facility] b) No [facility] [place] Work Phone: Blood Pressure Cuff Size Adult [facility] [place] Work Phone: Blood Pressure Cuff Sizeon 0 08-20-2020 Last menstrual period start date [id number] [facility] Work Phone: Blood Pressure Cuff Size Adult [facility] Work Phone: Blood Pressure Cuff Size a) Yes [facility] Work Phone: Cult, Urineon 08-20-2020 Bacteria identified Cx Nom (U) PATIENT: SARAN MENDEZ LOCATION: [facility] BILL#: [id number] : 89 AGE: SEX: F ORDERED BY: ANETA CRABTREE SOURCE: URINE [facility] Work Phone: IO UA (automated w/o microsc opy)on 08-20-2020 Protein (U) [Mass/Vol] 100 mg/dL [facility] Work Phone: IO UA (automated w/o microscopy) (+)small - 15 [facility] Work Phone: IO UA (automated w/o microscopy) Negative [facility] Work Phone: IO UA (automated w/o microscopy) Normal (0.2-1.0 mg/dl) [facility] Work Phone: IO UA (automated w/o microscopy) 5.5 1 [facility] Work Phone: IO UA (automated w/o microscopy) (++)moderate - 40 [facility] Work Phone: IO UA (automated w/o microscopy) 1.030 1 [facility] Work Phone: IO UA (automated w/o microscopy) Clear [facility] Work Phone: IO UA (automated w/o microscopy) Yellow [facility] Work Phone: No Panel Informationon 08-20 Positive [facility] Work Phone: [phone] GC + Chlamydia By Amplified Detectionon 11-07-2019 C. trachomatis rRNA JOSE+probe Ql (Unsp spec) Negative Negative [facility] Work Phone: N. gonorrhoeae rRNA JOSE+probe Ql (Unsp spec) Negative Negative [facility] Work Phone: Comment on above: SOURCE: Urine IO HCG, Urine Test on 11-07-2019 HCG ( test) Ql (U) Negative [facility] Work Phone: Otheron 11-07-2019 Canceled [facility] Work Phone: Comment on above: SOURCE: Urine TEST TRICHOMONAS,NUC LEIC ACID DETECTION WAS CANCELLED, 11/08/2019 09:39 Duplicate order- See # [id number]. Negative Negative [facility] Work Phone: Comment on above: SOURCE: Urine Bacterial Vaginosis Panelon 04-25-2019 Barbara sp rRNA Probe Ql (Vag fld) Not Detected See Below [facility] Work Phone: Comment on above: Reference Range: Not DetectedNOT DETECTED BY DNA PROBE T. vaginalis rRNA Probe Ql (Genital specimen) Not Detected See Below [facility] Work Phone: Comment on above: Reference Range: Not DetectedNOT DETECTED BY DNA PROBE T. vaginalis rRNA Probe Ql (Genital specimen) DETECTED Abnormal See Below [facility] Work Phone: Comment on above: Reference Range: Not DetectedDETECTED BY DNA PROBE Bacterial Vaginosis Panelon 01-23-2019 Barbara sp rRNA Probe Ql (Vag fld) Not Detected See Below [facility] Work Phone: Comment on above: Reference Range: Not DetectedNOT DETECTED BY DNA PROBE T. vaginalis rRNA Probe Ql (Genital specimen) DETECTED Abnormal See Below [facility] Work Phone: Comment on above: Reference Range: Not DetectedDETECTED BY DNA PROBE T. vaginalis rRNA Probe Ql (Genital specimen) Not Detected See Below [facility] Work Phone: Comment on above: Reference Range: Not DetectedNOT DETECTED BY DNA PROBE Cult, Urineon 01-23-2019 Bacteria identified Cx Nom (U) MICRSLT Abnormal [facility] Work Phone: Comment on above: PATIENT: SARAN MENDEZ LOCATION: [id number] BILL#: [id number] : 89 AGE: SEX: F ORDERED BY: MEENA CRABTREE: URINE COLLECTED: 01/23/19 10:53ANTIBIOTICS AT [facility].: RECEIVED : 01/23/19 19:15SITE: Clean Catch/Voided Clean Catch/Voided R E S U L T S URINE CULTURE,BACTERIAL PRELIM 01/24/19 11:39 CULTURE IN PROGRESS. PATIENT: SARAN MENDEZ LOCATION: [id number] BILL#: [id number] : 89 AGE: SEX: F ORDERED BY: MEENA CRABTREE: URINE COLLECTED: 01/23/19 10:53ANTIBIOTICS AT [facility].: RECEIVED : 01/23/19 19:15SITE: Clean Catch/Voided Clean Catch/Voided R E S U L T S URINE CULTURE,BACTERIAL FINAL 01/25/19 07:28 MULTIPLE ORGANISMS PRESENT, PROBABLE CONTAMINATION PLEASE REPEAT CULTURE. GC + Chlamydia By Amplified Detectionon 01-23-2019 C. trachomatis rRNA JOSE+probe Ql (Unsp spec) Negative NEGATIVE [facility] Work Phone: Comment on above: Performance characte ristics for Chlamydia trachomatis testing on female urine samples has been validated by [facility]. Testing on this sample type is not FDA-approved, but such approval is not necessary. This laboratory is certified by CLIA to perform high complexity testing. N. gonorrhoeae rRNA JOSE+probe Ql (Unsp spec) Negative NEGATIVE [facility] Work Phone: Comment on above: SOURCE: UrinePerform ance characteristics for Neisseria gonorrhoeae testing on female urine samples has been validated by [facility]. Testing on this sample type is not FDA-approved, but such approval is not necessary. This laboratory is certified by CLIA to perform high complexity testing. Glucose, Serumon 01-23-2019 Glucose [Mass/Vol] 94 mg/dL 74 - 99 [facility] Work Phone: Comment on above: SOURCE: HIV Antigen/Antibody Screeno n 01-23-2019 HIV Antigen/Antibody Screen NON REACTIVE See Below [facility] Work Phone: Comment on above: SOURCE: Reference Ra nge: NONREACTIVE HIV Ag/Ab screen is performed using the Siemens Advia Centaur HIV Ag/Ab Combo assay which detects the presence of HIV p24 antigen as well as antibodies to HIV-1 (Group M and O) and HIV-2. Imm/Pathon 01-23-2019 Reagin Ab VDRL Ql (S) NONREACTIVE See Below [facility] Work Phone: Comment on above: SOURCE: Reference Ra nge: NONREACTIVE Otheron 01-23-2019 T. pallidum IgG IA Ql (S) NON REACTIVE See Below [facility] Work Phone: Comment on above: SOURCE: Reference Ra nge: NONREACTIVE Patients receiving more than 5 mg/day of biotin may have interference in test results. A sample should be taken no sooner than eight hours after previous dose. Contact [phone] for additional information. Positive [facility] Work Phone: Urinalysison 01-23-2019 Appearance (U) HAZY CLEAR [facility] Work Phone: Color (U) KATHY See Below [facility] Work Phone: Comment on above: Reference Range: STR AW,YELLOW Glucose Ql (U) 50 (TRACE) Abnormal NEGATIVE [facility] Work Phone: Ketones Ql (U) Negative NEGATIVE [facility] Work Phone: Leukocyte esterase Test strip Ql (U) LARGE (3+) Abnormal NEGATIVE [facility] Work Phone: pH (U) 5.0 [pH] 5.0 - 8.0 [facility] Work Phone: Protein (U) [Mass/Vol] Negative NEGATIVE [facility] Work Phone: RBC (U) [#/Vol] SMALL (1+) Abnormal NEGATIVE [facility] Work Phone: Specific gravity (U) [Rel density] 1.018 See Below [facility] Work Phone: Comment on above: Reference Range: 1.0 05 - 1.035 Urinalysis Negative NEGATIVE [facility] Work Phone: Urinalysis <2.0 0.0 - 1.9 [facility] Work Phone: Urinalysis, Microscopicon Bacteria LM.HPF (Urine sed) [#/Area] 1+ Abnormal [facility] Work Phone: Urinalysis, Microscopic 1+ [facility] Work Phone: Urinalysis, Microscopic 1 {/HPF} 0-5 [facility] Work Phone: [phone] Urinalysis, Microscopic 10 {/HPF} [facility] Work Phone: [phone] Urinalysis, Microscopic 5 {/HPF} 0-5 [facility] Work Phone: GC + Chlamydia By Amplified Detectionon 11-14-2018 C. trachomatis rRNA JOSE+probe Ql (Unsp spec) Positive Abnormal NEGATIVE [facility] Work Phone: Comment on above: Performance characte ristics for Chlamydia trachomatis testing on female urine samples has been validated by [facility]. Testing on this sample type is not FDA-approved, but such approval is not necessary. This laboratory is certified by CLIA to perform high complexity testing. N. gonorrhoeae rRNA JOSE+probe Ql (Unsp spec) Negative NEGATIVE -[facility] Work Phone: Comment on above: SOURCE: UrinePerform ance characteristics for Neisseria gonorrhoeae testing on female urine samples has been validated by [facility]. Testing on this sample type is not FDA-approved, but such approval is not necessary. This laboratory is certified by CLIA to perform high complexity testing. CULTURE URINEon 10-25-2018 CULTURE URINE CULTURE URINE --> Status: F Normal urogenital joseph present. Normal [facility] Comment on above: Order Comment: Speci men Source Comment:Urine, clean catch Performed By: #### C /UR #### [facility] [employer] [address] [place] [id number] Vaginitis Panel PCRon 2018 Vaginitis Panel PCR Bacterial Vaginosis Markers PCR --> Status: F Negative Barbara spp. PCR --> Status: F POSITIVE Barbara glabrata PCR --> Status: F Negative Barbara krusei PCR --> Status: F Negative Trichomonas vaginalis PCR --> Status: F Negative Expected Value: Negative Method: Real Time PCR by BD-MAX Expected Value: Negative Method: Real Time PCR by BD-MAX Normal [facility] Comment on above: Order Comment: Use U VE Collection Kit Performed By: #### V GPCR #### [facility] [address] [place] [address] Chlamydia and GC PCR Panelon 10-24-2018 Chlamydia and GC PCR Panel Chlamydia trachomatis PCR --> Status: F DETECTED Chlamydia trachomatis Nucleic Acid DETECTED by DNA Amplification using the Cepheid System. A positive test should be considered presumptive evidence of infection. Although the specificity of this assay is high, the Positive Predictive Value may be suboptimal in low prevalence populations (i.e. patients at low risk for infection.) Positive results should be interpreted in conjunction with patient's risk profile and clinical symptoms. Additional testing on a new specimen may be warranted for some cases. This test should not be used as a test of cure since results may remain positive long after clinical cure. Culture is the only recommended test in medical-legal cases such as suspected child abuse or molestation. Chlamydia trachomatis Nucleic Acid DETECTED by DNA Amplification using the Cepheid System. A positive test should be considered presumptive evidence of infection. Although the specificity of this assay is high, the Positive Predictive Value may be suboptimal in low prevalence populations (i.e. patients at low risk for infection.) Positive results should be interpreted in conjunction with patient's risk profile and clinical symptoms. Additional testing on a new specimen may be warranted for some cases. This test should not be used as a test of cure since results may remain positive long after clinical cure. Culture is the only recommended test in medical-legal cases such as suspected child abuse or molestation. Neisseria gonorrhoeae PCR --> Status: F NOT Detected Neisseria gonorrhoeae Nucleic Acid NOT Detected by DNA Amplification using the Cepheid System. Culture is the only recommended test in medical-legal cases such as suspected child abuse or molestation. Neisseria gonorrhoeae Nucleic Acid NOT Detected by DNA Amplification using the Cepheid System. Culture is the only recommended test in medical-legal cases such as suspected child abuse or molestation. Normal [facility] Comment on above: Order Comment: Speci men Source Comment:Cervix Performed By: #### C TNGP #### [facility] [address] [place] [address] HCG,Urine Qualon 10-23-2018 Beta HCG ( test) Ql (U) Negative Normal Negative [facility] Comment on above: Result Comment: Preg tran is the most common reason for HCG in urine, although choriocarcinoma, hydatidiform mole, and certain nontropho- blastic malignancies also result in detectable urinary HCG levels. Sensitivity = 20mIU/mL. Performed By: #### H CGUR #### [facility] [employer] [address] [place] [id number] Vital Signs Date Time Vital Sign Value Performing Clinician Facility 04-02-2024 08:39-0500 Body mass index (BMI) [Ratio] 20.1 kg/m2 Aneta Crabtree MD Work Phone: [facility] 04-02-2024 08:39-0500 Body temperature 98.1 [degF] Aneta Crabtree MD Work Phone: [facility] 04-02-2024 08:39-0500 Body weight 62.96 kg Aneta Crabtree MD Work Phone: [facility] 04-02-2024 08:39-0500 Diastolic blood pressure 67 mm[Hg] Aneta Crabtree MD Work Phone: [facility] 04-02-2024 08:39-0500 Heart rate 90 /min Aneta Crabtree MD Work Phone: [facility] 04-02-2024 08:39-0500 Respiratory rate 16 /min Aneta Crabtree MD Work Phone: [facility] 04-02-2024 08:39-0500 SaO2% (BldA) [Mass fraction] 98 % Aneta Crabtree MD Work Phone: [facility] 04-02-2024 08:39-0500 Systolic blood pressure 101 mm[Hg] Aneta Crabtree MD Work Phone: [facility] 01-28-2024 19:00-0400 Diastolic Blood Pressure Non-Invasive 56 mm[Hg] SAMMY MEYERS DO [facility] 01-28-2024 19:00-0400 Heart rate 99 /min SAMMY MEYERS DO [facility] 01-28-2024 19:00-0400 Systolic Blood Pressure Non-Invasive 127 mm[Hg] SAMMY JETTT [employer] [facility] 01-28-2024 17:54-0400 Diastolic Blood Pressure Non-Invasive 90 mm[Hg] SAMMY JETTT DO [facility] 01-28-2024 17:54-0400 Heart rate 98 /min SAMMY JETTFuze [facility] 01-28-2024 17:54-0400 Respiratory rate 18 /min SAMMY JETTFuze [facility] 01-28-2024 17:54-0400 Systolic Blood Pressure Non-Invasive 140 mm[Hg] SAMMY JETTT [employer] [facility] 01-28-2024 17:42-0400 Diastolic Blood Pressure Non-Invasive 91 mm[Hg] SAMMY JETTFuze [facility] 01-28-2024 17:42-0400 Heart rate 101 /min SAMMY JETTFuze [facility] 01-28-2024 17:42-0400 Respiratory rate 20 /min SAMMY JETTFuze [facility] 01-28-2024 17:42-0400 Systolic Blood Pressure Non-Invasive 144 mm[Hg] SAMMY JETTFuze [facility] 01-28-2024 16:54-0400 Heart rate 121 /min SAMMY JETTFuze [facility] 01-28-2024 16:43-0400 Body temperature 99.32 [degF] SAMMY JETTFuze [facility] 01-28-2024 16:43-0400 Body weight 64.9 kg SAMMY JETTFuze [facility] 07-08-2023 14:11-0400 Body height 177 cm Jose Jauregui PA-C Work Phone: [facility] 07-08-2023 [id number] Body mass index (BMI) [Ratio] 20.56 kg/m2 Jose Juventino PA-C Work Phone: [facility] 07-08-2023 [id number] Body temperature 99.5 [degF] Jose Juventino PA-C Work Phone: [facility] 07-08-2023 [id number] Body weight 64.41 kg Jose Juventino PA-C Work Phone: [facility] 07-08-2023 14:11-0400 Diastolic blood pressure 88 mm[Hg] Jose Juventino PA-C Work Phone: [facility] 07-08-2023 14:11-0400 Heart rate 123 /min Jose Juventino PA-C Work Phone: [facility] 07-08-2023 14:11-0400 SaO2% (BldA) [Mass fraction] 99 % Jose Juventino PA-C Work Phone: [facility] 07-08-2023 [id number] Systolic blood pressure 125 mm[Hg] Jose Juventino PA-C Work Phone: [facility] 07-05-2023 08:40-0400 Body height 177.8 cm Kendall Talley DPM Work Phone: [facility] 07-05-2023 08:40-0400 Body weight 63.5 kg Kendall Talley DPM Work Phone: [facility] 07-05-2023 08:40-0400 Respiratory rate 18 /min Kendall Talley DPM Work Phone: [facility] 02-28-2023 13:18-0500 Body mass index (BMI) [Ratio] 22.38 kg/m2 Aneta Crabtree MD Work Phone: [facility] 02-28-2023 13:18-0500 Body temperature 97.7 [degF] Aneta Crabtree MD Work Phone: [facility] 02-28-2023 13:18-0500 Body weight 70.76 kg Aneta Crabtree MD Work Phone: [facility] 02-28-2023 13:18-0500 Diastolic blood pressure 75 mm[Hg] Aneta Crabtree MD Work Phone: [facility] 02-28-2023 13:18-0500 Heart rate 92 /min Aneta Crabtree MD Work Phone: [facility] 02-28-2023 13:18-0500 SaO2% (BldA) [Mass fraction] 96 % Aneta Crabtree MD Work Phone: [facility] 02-28-2023 13:18-0500 Systolic blood pressure 127 mm[Hg] Aneta Crabtree MD Work Phone: [facility] 05-25-2022 15:17-0500 Body height 177.8 cm Aneta Crabtree Work Phone: [facility] Work Phone: 05-25-2022 15:17-0500 Body mass index (BMI) [Ratio] 20.21 kg/m2 Aneta Crabtree Work Phone: [facility] Work Phone: 05-25-2022 15:17-0500 Body surface area Derived from formula 1.8 m2 Aneta Crabtree Work Phone: [facility] Work Phone: 05-25-2022 15:17-0500 Body temperature 97.7 [degF] Aneta Roseanna Crabtree Work Phone: [facility] Work Phone: 05-25-2022 15:17-0500 Body weight 63.9 kg Aneta Roseanna Bermudeze Work Phone: [facility] Work Phone: 05-25-2022 15:17-0500 Diastolic blood pressure 88 mm[Hg] Aneta L Bro Work Phone: [facility] Work Phone: 05-25-2022 15:17-0500 Heart rate 108 /min Aneta L Bro Work Phone: [facility] Work Phone: 05-25-2022 15:17-0500 Respiratory rate 14 /min Aneta L Bro Work Phone: [facility] Work Phone: 05-25-2022 15:17-0500 SaO2% (BldA) [Mass fraction] 97 % Aneta L Bro Work Phone: [facility] Work Phone: 05-25-2022 15:17-0500 Systolic blood pressure 108 mm[Hg] Aneta L Bro Work Phone: [facility] Work Phone: 05-25-2022 15:17-0500 5 1 Aneta L Bro Work Phone: [facility] Work Phone: Comment on above: [facility] 04-15-2022 09:10-0500 Body temperature 98.1 [degF] Aneta L Bro Work Phone: [facility] Work Phone: 04-15-2022 09:10-0500 Body weight 68.27 kg Aneta L Bro Work Phone: [facility] Work Phone: 04-15-2022 09:10-0500 Diastolic blood pressure 66 mm[Hg] Aneta L Bro Work Phone: [facility] Work Phone: 04-15-2022 09:10-0500 Heart rate 103 /min Aneta L Bor Work Phone: [facility] Work Phone: 04-15-2022 09:10-0500 SaO2% (BldA) [Mass fraction] 98 % Aneta L Bro Work Phone: [facility] Work Phone: 04-15-2022 09:10-0500 Systolic blood pressure 99 mm[Hg] Aneta L Bro Work Phone: [facility] Work Phone: 03-29-2022 15:21-0500 Body temperature 98 [degF] Aneta L Bro Work Phone: [facility] Work Phone: 03-29-2022 15:21-0500 Body weight 68.04 kg Aneta L Bro Work Phone: [facility] Work Phone: 03-29-2022 15:21-0500 Diastolic blood pressure 73 mm[Hg] Aneta L Bro Work Phone: [facility] Work Phone: 03-29-2022 15:21-0500 Heart rate 96 /min Aneta L Bro Work Phone: [facility] Work Phone: 03-29-2022 15:21-0500 Respiratory rate 16 /min Aneta L Bro Work Phone: [facility] Work Phone: 03-29-2022 15:21-0500 SaO2% (BldA) [Mass fraction] 100 % Aneta L Bro Work Phone: [facility] Work Phone: 03-29-2022 15:21-0500 Systolic blood pressure 108 mm[Hg] Aneta L Bro Work Phone: [facility] Work Phone: 03-29-2022 15:21-0500 0 1 Aneta L Bro Work Phone: [facility] Work Phone: Comment on above: [facility] 01-12-2022 09:16-0400 Body temperature 98.7 [degF] Aneta L Bro Work Phone: [facility] Work Phone: 01-12-2022 09:16-0400 Body weight 66.91 kg Aneta L Bro Work Phone: [facility] Work Phone: 01-12-2022 09:16-0400 Diastolic blood pressure 69 mm[Hg] Aneta L Bro Work Phone: [facility] Work Phone: 01-12-2022 09:16-0400 Heart rate 74 /min Aneta L Bro Work Phone: [facility] Work Phone: 01-12-2022 09:16-0400 Respiratory rate 16 /min Aneta L Bro Work Phone: [facility] Work Phone: 01-12-2022 09:16-0400 SaO2% (BldA) [Mass fraction] 97 % Aneta L Bro Work Phone: [facility] Work Phone: 01-12-2022 09:16-0400 Systolic blood pressure 104 mm[Hg] Aneta L Bro Work Phone: [facility] Work Phone: 01-12-2022 09:16-0400 23 1 Aneta L Bro Work Phone: [facility] Work Phone: Comment on above: PHQ-9 TS 09-27-2021 14:41-0400 Body height 177.8 cm Aneta L Bro Work Phone: [facility] Work Phone: 09-27-2021 14:41-0400 Body mass index (BMI) [Ratio] 19.68 kg/m2 Aneta L Bro Work Phone: [facility] Work Phone: 09-27-2021 14:41-0400 Body surface area Derived from formula 1.78 m2 Aneta L Bro Work Phone: [facility] Work Phone: 09-27-2021 14:41-0400 Body temperature 97.6 [degF] Aneta L Bro Work Phone: [facility] Work Phone: 09-27-2021 14:41-0400 Body weight 62.2 kg Aneta L Bro Work Phone: [facility] Work Phone: 09-27-2021 14:41-0400 Diastolic blood pressure 63 mm[Hg] Aneta L Bro Work Phone: [facility] Work Phone: 09-27-2021 14:41-0400 Heart rate 120 /min Aneta L Bro Work Phone: [facility] Work Phone: 09-27-2021 14:41-0400 Respiratory rate 18 /min Aneta L Bro Work Phone: [facility] Work Phone: 09-27-2021 14:41-0400 SaO2% (BldA) [Mass fraction] 96 % Aneta L Bro Work Phone: [facility] Work Phone: 09-27-2021 14:41-0400 Systolic blood pressure 105 mm[Hg] Aneta L Bro Work Phone: [facility] Work Phone: 09-27-2021 14:41-0400 8 1 Aneta L Bro Work Phone: [facility] Work Phone: Comment on above: [facility] 05-31-2021 09:11-0500 Body height 179.07 cm Aneta L Bro Work Phone: [facility] Work Phone: 05-31-2021 09:11-0500 Body mass index (BMI) [Ratio] 20.97 kg/m2 Aneta L Bro Work Phone: [facility] Work Phone: 05-31-2021 09:11-0500 Body surface area Derived from formula 1.85 m2 Aneta L Bro Work Phone: [facility] Work Phone: 05-31-2021 09:11-0500 Body temperature 98.1 [degF] Aneta L Bro Work Phone: [facility] Work Phone: 05-31-2021 09:11-0500 Body weight 67.25 kg Aneta L Bro Work Phone: [facility] Work Phone: 05-31-2021 09:11-0500 Diastolic blood pressure 73 mm[Hg] Aneta L Bro Work Phone: [facility] Work Phone: 05-31-2021 09:11-0500 Heart rate 85 /min Aneta L Bro Work Phone: [facility] Work Phone: 05-31-2021 09:11-0500 Respiratory rate 16 /min Aneta L Bro Work Phone: [facility] Work Phone: 05-31-2021 09:11-0500 SaO2% (BldA) [Mass fraction] 98 % Aneta L Bro Work Phone: [facility] Work Phone: 05-31-2021 09:11-0500 Systolic blood pressure 114 mm[Hg] Aneta L Bro Work Phone: [facility] Work Phone: 02-02-2021 13:02-0400 Body temperature 98.5 [degF] Aneta L Bro Work Phone: [facility] [address] [place] [address] Work Phone: 02-02-2021 13:02-0400 Body weight 71.22 kg Aneta L Bro Work Phone: [facility]i [facility] [address] [place] [address] Work Phone: 02-02-2021 13:02-0400 Diastolic blood pressure 72 mm[Hg] Aneta L Bro Work Phone: [facility] [address] [place] [address] Work Phone: 02-02-2021 13:02-0400 Heart rate 110 /min Aneta L Bro Work Phone: DY[facility]Iyosftkfbi[facility]Rqal [facility] [address] [place] [address] Work Phone: 02-02-2021 13:02-0400 Respiratory rate 16 /min Aneta L Bro Work Phone: JH[facility]Xatjziovoa[facility]Yrur [facility] [address] [place] [address] Work Phone: 02-02-2021 13:02-0400 SaO2% (BldA) [Mass fraction] 97 % Aneta L Bro Work Phone: MT[facility]Dgjzqzynah-Zaqm er [address] [place] [address] Work Phone: 02-02-2021 13:02-0400 Systolic blood pressure 108 mm[Hg] Aneta L Bro Work Phone: [facility] [address] Work Phone: 08-20-2020 11:49-0400 Diastolic blood pressure 71 mm[Hg] Aneta L Bro Work Phone: [facility] Work Phone: 08-20-2020 11:49-0400 Diastolic blood pressure 61 mm[Hg] Aneta L Bro Work Phone: [facility] Work Phone: 08-20-2020 11:49-0400 Systolic blood pressure 106 mm[Hg] Aneta L Bro Work Phone: [facility] Work Phone: 08-20-2020 11:49-0400 Systolic blood pressure 91 mm[Hg] Aneta L Bro Work Phone: [facility] Work Phone: 08-20-2020 11:49-0400 Systolic blood pressure 88 mm[Hg] Aneta L Bro Work Phone: [facility] Work Phone: 08-20-2020 11:49-0400 118 1 Aneta L Bro Work Phone: [facility] Work Phone: Comment on above: PULRateLy 08-20-2020 11:49-0400 98 1 Aneta L Bro Work Phone: [facility] Work Phone: Comment on above: PULRateSit 08-20-2020 11:49-0400 108 1 Aneta L Bro Work Phone: [facility] Work Phone: Comment on above: PUL[employer]St 08-20-2020 11:43-0400 Body temperature 96 [degF] Aneta L Bro Work Phone: [facility] Work Phone: 08-20-2020 11:43-0400 Body weight 59.88 kg Aneta L Bro Work Phone: [facility] Work Phone: 08-20-2020 11:43-0400 Diastolic blood pressure 54 mm[Hg] Aneta L Bro Work Phone: [facility] Work Phone: 08-20-2020 11:43-0400 Heart rate 115 /min Aneta L Bro Work Phone: [facility] Work Phone: 08-20-2020 11:43-0400 Respiratory rate 16 /min Aneta L Bro Work Phone: [facility] Work Phone: 08-20-2020 11:43-0400 SaO2% (BldA) [Mass fraction] 98 % Aneta L Bro Work Phone: [facility] Work Phone: 08-20-2020 11:43-0400 Systolic blood pressure 78 mm[Hg] Aneta L Bro Work Phone: [facility] Work Phone: 11-07-2019 16:40-0400 BMI (Body Mass Index) 18.38 kg/m2 Aneta Bro [facility] Work Phone: 11-07-2019 16:40-0400 Body Temperature 97.9 [degF] Aneta Bro [facility] Work Phone: 11-07-2019 16:40-0400 Body weight 58.1 kg Aneta Bro [facility] Work Phone: 11-07-2019 16:40-0400 BP Diastolic 74 mm[Hg] Aneta Bro [facility] Work Phone: 11-07-2019 16:40-0400 BP Systolic 103 mm[Hg] Anetaann marie Crabtree [facility] Work Phone: 11-07-2019 16:40-0400 BSA (Body Surface Area) 1.73 m2 Anetaann marie Crabtree [facility] Work Phone: 11-07-2019 16:40-0400 Height 177.8 cm Anetaann marie Crabtree [facility] Work Phone: 11-07-2019 16:40-0400 Pulse (Heart Rate) 100 /min Aneta Crabtree [facility] Work Phone: 11-07-2019 16:40-0400 Pulse Oximetry 98 % Aneta Crabtree [facility] Work Phone: 11-07-2019 16:40-0400 Respiratory Rate 20 /min Aneta Crabtree [facility] Work Phone: 11-07-2019 16:40-0400 0 1 Aneta Crabtree [facility] Work Phone: Comment on above: Pain Scale 04-25-2019 11:47-0500 Body Temperature 98 [degF] Aneta Crabtree [facility] Work Phone: Comment on above: Method: Oral 04-25-2019 11:47-0500 Body weight 61.26 kg Aneta Bro [facility] Work Phone: 04-25-2019 11:47-0500 BP Diastolic 73 mm[Hg] Aneta Bro [facility] Work Phone: Comment on above: Location: RUE; Position: Sitting 04-25-2019 11:47-0500 BP Systolic 111 mm[Hg] Aneta Bro [facility] Work Phone: Comment on above: Location: RUE; Position: Sitting 04-25-2019 11:47-0500 Pulse (Heart Rate) 49 /min Aneta Bro [facility] Work Phone: 04-25-2019 11:47-0500 Pulse Oximetry 95 % Aneta Bro [facility] Work Phone: Comment on above: Source: 04-25-2019 11:47-0500 Respiratory Rate 16 /min Aneta Bro [facility] Work Phone: 01-23-2019 09:58-0400 Body Temperature 98.3 [degF] Aneta Bro [facility] Work Phone: Comment on above: Method: Oral 01-23-2019 09:58-0400 Body weight 60.42 kg Aneta Bro [facility] Work Phone: 01-23-2019 09:58-0400 BP Diastolic 66 mm[Hg] Aneta Bro [facility] Work Phone: Comment on above: Location: RUE; Position: Sitting 01-23-2019 09:58-0400 BP Systolic 101 mm[Hg] Aneta Bro [facility] Work Phone: Comment on above: Location: RUE; Position: Sitting 01-23-2019 09:58-0400 Pulse (Heart Rate) 52 /min Aneta Bro [facility] Work Phone: 01-23-2019 09:58-0400 Pulse Oximetry 97 % Aneta Bro [facility] Work Phone: Comment on above: Source: 01-23-2019 09:58-0400 Respiratory Rate 12 /min Aneta Bro [facility] Work Phone: 11-14-2018 17:59-0400 BMI (Body Mass Index) 20.38 kg/m2 Aneta Bro [facility] Work Phone: 11-14-2018 17:59-0400 Body Temperature 98.2 [degF] Aneta Bro [facility] Work Phone: 11-14-2018 17:59-0400 Body weight 62.6 kg Aneta Crabtree [facility] Work Phone: 11-14-2018 17:59-0400 BP Diastolic 74 mm[Hg] Anetaann marie Crabtree [facility] Work Phone: 11-14-2018 17:59-0400 BP Systolic 112 mm[Hg] Anetaann marie Crabtree [facility] Work Phone: 11-14-2018 17:59-0400 BSA (Body Surface Area) 1.76 m2 Anetaann marie Crabtree [facility] Work Phone: 11-14-2018 17:59-0400 Height 175.26 cm Aneta Crabtree [facility] Work Phone: 11-14-2018 17:59-0400 Pulse (Heart Rate) 82 /min Aneta Crabtree [facility] Work Phone: 11-14-2018 17:59-0400 Pulse Oximetry 98 % Aneta Crabtree [facility] Work Phone: 11-14-2018 17:59-0400 Respiratory Rate 16 /min Anetaann marie Crabtree [facility] Work Phone: 11-14-2018 17:59-0400 33 1 Aneta Crabtree [facility] Work Phone: Comment on above: BMI Percentile 11-14-2018 17:59-0400 0 1 Aneta Crabtree [facility] Work Phone: Comment on above: Pain Scale 11-14-2018 17:59-0400 97 1 Aneta Crabtree [facility] Work Phone: Comment on above: 2-20 Stature Percentile 11-14-2018 17:59-0400 66 1 Aneta Bro [facility] Work Phone: Comment on above: 2-20 Weight Percentile 10-29-2018 11:12-0400 BMI (Body Mass Index) 20.32 kg/m2 Aneta Bro [facility] Work Phone: 10-29-2018 11:12-0400 Body Temperature 98.5 [degF] Aneta Bro [facility] Work Phone: Comment on above: Method: Oral 10-29-2018 11:12-0400 Body weight 62.87 kg Aneta Bro [facility] Work Phone: 10-29-2018 11:12-0400 BP Diastolic 66 mm[Hg] Aneta Bro [facility] Work Phone: Comment on above: Location: RUE; Position: Sitting 10-29-2018 11:12-0400 BP Systolic 97 mm[Hg] Aneta Bro [facility] Work Phone: Comment on above: Location: RUE; Position: Sitting 10-29-2018 11:12-0400 BSA (Body Surface Area) 1.77 m2 Aneta Bro [facility] Work Phone: 10-29-2018 11:12-0400 Height 175.9 cm Aneta Bro [facility] Work Phone: 10-29-2018 11:12-0400 Pulse (Heart Rate) 88 /min Aneta Bro [facility] Work Phone: 10-29-2018 11:12-0400 Pulse Oximetry 97 % Aneta Bro [facility] Work Phone: Comment on above: Source: 10-29-2018 11:12-0400 Respiratory Rate 12 /min Aneta Bro [facility] Work Phone: 10-29-2018 11:12-0400 67 1 Aneta Bro [facility] Work Phone: Comment on above: 2-20 Weight Percentile 10-29-2018 11: 33 1 [facility]ab[facility] Work Phone: Comment on above: BMI Percentile 10-29-2018 11: 97 1 An[facility]abtree [facility] Work Phone: Comment on above: 2-20 Stature Percentile Encounters Encounter Date Encounter Type Care Provider Facility Start: 11-29-2024 End: 11-29-2024 ambulatory PIA ADURY Facility:[facility] Start: 11-14-2024 End: 11-15-2024 Emergency department patient visit ANETA CRABTREE Facility:[facility] Start: 09-12-2024 End: 09-12-2024 ambulatory NAETA Roseanna BRO Facility:[facility] Start: 09-12-2024 End: 09-12-2024 ambulatory ANETA CRABTREE Facility:[id number] Start: 06-25-2024 ambulatory [facility] BRO Facility:[facility] Start: 06-18-2024 End: 06-19-2024 Emergency department patient visit ANETA CRABTREE Facility:[id number] Start: 04-18-2024 End: 04-18-2024 ambulatory ACE VIVAS MD Facility:[facility] Start: 04-02-2024 End: 04-02-2024 [facility] Ambulatory Start: 04-02-2024 End: 04-02-2024 Office outpatient visit 40 minutes Aneta Crabtree MD Work Phone: [facility] Comment on above: Suicidal ideation (P rimary Dx); Severe episode of recurrent major depressive disorder, 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) Start: 03-29-2024 ambulatory ANETAAnn Marie CRABTREE Facility:[facility] Start: 03-23-2024 End: 03-23-2024 Admission to [facility] Silvino Schwartz [facility] Work Phone: [facility] Start: 03-23-2024 End: 03-23-2024 ambulatory Silvino Schwartz [employer] Work Phone: [facility] Comment on above: Psychiatric Problem Start: 02-13-2024 ambulatory ANETA L BRO Facility:[facility] Start: 01-28-2024 End: 01-28-2024 Emergency department patient visit SAMMY MEYERS DO Facility:A Start: 01-10-2024 End: 01-10-2024 ambulatory ISABEL PEARSON CNP Facility:[facility] Start: 12-30-2023 End: 12-30-2023 ambulatory ACE VIVAS MD Facility:[facility] Start: 12-11-2023 ambulatory ANETA L BRO Facility:[facility] Start: 11-30-2023 ambulatory ANETA L BRO Facility:[facility] Start: 10-06-2023 End: 10-06-2023 Emergency department patient visit AMISH FISCHERSHEILABrodyRAJNI Facility:[facility] Start: 09-23-2023 End: 09-23-2023 ambulatory ACE VIVAS MD Facility:[facility] Start: 07-10-2023 Emergency department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 Plan note Associated Problem(s): Severe episode of recurrent major depressive disorder, 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) [facility] Work Phone: 04-02-2024 History of Present illness Narrative Subjective Saran Mendez. Is 24 y.o.. female. Here for follow up office visit- Chief Complaint Patient presents with Hospital Follow-up In the hospital for a mental issues HPI: How is patient doing today? See scales- answered #9 as a 2 Discussed with pt - pt states she is depressed Pt is not taking any of her medications Pt is very hopeless , sad, does not want to be here When is follow up appointment with the Psychiatrist? Does not have one - nothing set up on discharge Follow up for ED/UC/Hospital admission: Date(s): 03/24/24 Today - 9 days post discharge TAMIKA - day post discharge - no note done in chart Dx: Depression ztoxicology History: Latest Ref Rng & Units 03/23/2024 11/21/2021 11/15/2021 Labs Amphetamines Negative Preliminary positive* Preliminary positive* Preliminary positive* Ethanol, Urine <11 mg/dL <11 <11 <11 Barbiturates Negative Negative Negative Negative Benzodiazepines Urine Negative Preliminary positive* Negative Negative Cocaine Urine Negative Preliminary positive* Negative Negative Opiates Negative Negative Negative Negative Oxycodone, Urine Negative Negative Negative Negative Phencyclidine Negative Negative Negative Negative Cannabinoids, Urine Negative Preliminary positive* Patient Active Problem List Diagnosis Date Noted Severe episode of recurrent major depressive disorder, 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) 04/02/2024 Suicidal ideation 04/02/2024 Pyelonephritis 07/09/2023 Anxiety, mild 08/01/2022 Bipolar depression (Multi) 08/01/2022 Cannabis use disorder 08/01/2022 IUD contraception 08/01/2022 Vitamin D deficiency 08/01/2022 Methamphetamine abuse (Multi) 11/26/2021 Nicotine use disorder 11/26/2021 Bipolar 2 disorder (Multi) 11/21/2021 No TAMIKA note: No data recorded Patient Care Team: Aneta Crabtree MD as PCP - General Aneta Crabtree MD as PCP - Jessica HARDY PCP Leon Guillory MD as Psychiatrist (Psychiatry) REVIEW OF SYSTEMS: Objective Vitals: 04/02/24 0839 BP: 101/67 BP Location: Left arm Patient Position: Sitting BP Cuff Size: Adult Pulse: 90 Resp: 16 Temp: 36.7 C (98.1 F) TempSrc: Temporal SpO2: 98% Weight: 63 kg (138 lb 12.8 oz) PHYSICAL: Patient is alert and oriented x 3 , NAD HEAD- normocephalic and atraumatic LUWM-mopatimxtye-vtycxh, lids - normal EARS/NOSE- normal external exam NECK-supple,FROM CV- RRR without murmur PULM- CTA bilaterally, normal respiratory effort RESPIRATORY EFFORT- normal , no retractions or nasal flaring ABD- normoactive BS's EXT- no edema,NT SKIN- no abnormal skin lesions noted NEURO- no focal deficits PSYCH- pleasant, normal judgement and insight BP Readings from Last 3 Encounters: 04/02/24 101/67 07/08/23 125/88 02/28/23 127/75 Wt Readings from Last 3 Encounters: 04/02/24 63 kg (138 lb 12.8 oz) 07/08/23 64.4 kg (142 lb) 02/28/23 70.8 kg (156 lb) BMI Readings from Last 3 Encounters: 04/02/24 20.10 kg/m 07/08/23 20.56 kg/m 02/28/23 22.38 kg/m The number and complexity of problems addressed is considered moderate. The amount and/or complexity of data reviewed and analyzed is considered moderate. The risk of complications and/or morbidity/mortality of patient is considered moderate. Overall, this patient encounter is considered a moderate risk visit. The patient is here for a hospital follow up. Hospital records were reviewed prior to visit, including relevant labs, imaging findings, eco industrial development consultant notes, and discharge summary. Medications were reconciled and are current, reviewed today. Time spent reviewing hospital records prior to today's [id number] office visit= 20 minutes Patient education provided when applicable.- given info with local agencies Assessment/Plan Assessment & Plan Suicidal ideation Severe episode of recurrent major depressive disorder, 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) Concerns for patient safety- admits suicidal ideation, hopeless, sad, does not want to be here Has stopped all of her Medication Has no mental health provider/Psychiatrist at this time Minimal support at home Squad called- assessed patient - They were able to have pt communicate directly with [facility] via phone And [facility] will decide next step that is safe for patient - [facility] will see pt today- patient is driving directly to their facility for intake and evaluation Follow up in 4-6 weeks Current Outpatient Medications: QUEtiapine (SEROquel) 200 mg tablet, Take 1 tablet (200 mg) by mouth once daily at bedtime. (Patient not taking: Reported on 04/02/2024), Disp: , Rfl: Time spent during the office visit includes- updating and familiarizing myself with patients past medical history, social history, and allergies : discussing ROS ; obtaining direct chief complaint and history of present illness from patient , reviewing and reconciling current medication list - both prescription and over the counter medications clinically examine patient determine what testing if any is needed to diagnose the condition/conditions with which patient is presenting using medical knowledge to put all of the information together and decide on best course of action to proceed with diagnosis and treatment for the presenting problem or problems Pre-visit planning, chart review, and rxir-tu-ccye encounter Review of urgent care ?Hospital records (receicved before and/or after visit, or same day) Discussion of medications Coordination with patient and /or office staff for med adjustments Final documentation of visit My total time spent caring for the patient for the day of the encounter (before,during, and after) was = 60 plus total minutes. (Prep+during visit+post visit) documented in this encounter [facility] Work Phone: 04-02-2024 Miscellaneous Notes Associated Problem(s): Suicidal ideation Associated Problem(s): Severe episode of recurrent major depressive disorder, 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) documented in this encounter [facility] Work Phone: 03-23-2024 Note Formatting of this n ote is different from the original. Images from the original note were not included. Psychiatric Crisis Initial Assessment Date of Service: March 23, 2024 Service Time: 9:02 PM Referral Type: [facility] ED Service Method: Telephone Sources of Information: Patient, Epic, Prior Referrals, ED Staff Nature of the crisis: Patient endorsed having a mental health crisis. Presenting Problem: Saran Mendez, 2000, is a 24 year old female brought in to [facility] ED from the Community by self for psychiatric evaluation. Subjective: Patient reported having a mental health crisis for several days, reported she has been to [facility] in the past. When asked about psychosocial stressors, the patient reported she found out her ex-boyfriend killed his mother and feels this affected me strongly. She initially reported she has not taken any psychotropic medications in some time, later reported she took her medication today and is prescribed Wellbutrin. She endorsed seeing a psychiatrist through [facility] but feels this has been inconsistent. Patient reported she would like to be admitted to the hospital, but has been sitting here a long time. I really just need a mental break from reality. Inpatient Mental Health Treatment History: Prior Hospitalization History: Over 90 Days Ago Last Hospitalization Location: [facility] 11/21/2021 - 11/26/2021 (5 days) Reasons for Last Admission: Patient was admitted for substance induced psychosis alongside depression. Outpatient Mental Health Treatment History: Prior Psychiatric Diagnoses: Bipolar 2 disorder, Personality disorder traits, Polysubstance abuse Current Provider(s): Patient reported she sees a different provider with psychiatry calls through [facility] Agency/Organization: [facility] Treatment Adherence: Intermittent adherence with treatment recommendations Medication(s): busPIRone (BUSPAR) 5 mg tablet Take 5 mg by mouth three times a day. buPROPion XL (WELLBUTRIN XL) 300 mg 24 hr tablet Take 300 mg by mouth. QUEtiapine (SEROQUEL) 100 mg tablet Take 100 mg by mouth daily at bedtime. buPROPion SR (WELLBUTRIN SR) 100 mg 12 hr tablet Take 1 tablet by mouth twice daily. No medication comments found. Toxicology History: Latest Ref Rng & Units 03/23/2024 11/21/2021 11/15/2021 Labs Amphetamines Negative Preliminary positive Preliminary positive Preliminary positive Ethanol, Urine <11 mg/dL <11 <11 <11 Barbiturates Negative Negative Negative Negative Benzodiazepines Urine Negative Preliminary positive Negative Negative Cocaine Urine Negative Preliminary positive Negative Negative Opiates Negative Negative Negative Negative Oxycodone, Urine Negative Negative Negative Negative Phencyclidine Negative Negative Negative Negative Cannabinoids, Urine Negative Preliminary positive Preliminary positive Preliminary positive Mental Status Exam: Appearance: Appears Stated Age, Well Groomed, Well Dressed Alert: Yes Oriented: Person, Place, Time, Situation Activity/Motor: Appropriate Cooperation: Cooperative Speech Quantity: Appropriate Speech Rate: Appropriate Speech Volume: Appropriate Speech Quality: Clear, Appropriate to Topic Mood Observed: Euthymic Range of Affect: Full Thought Content: Hallucinations: Patient Denies, None Evident Delusions: None Observed Thought Process: Linear and Organized Insight: Fair Judgment: Fair Cognitive: Impairment: None Memory: Intact Recent, Intact Remote Self-Harm History: Non-Suicidal Self Injury: None, Patient Denies Suicide Risk: Suicidal Ideation: Patient Denies, None Non-Lethal Harm to Others: Harm to Others or Damage/Destruction of Property: None, Patient Denies Homicide Risk: Homicidal Ideation: Patient Denies, None Access to Weapons: Access To Weapons: No Interventions: Interventions: None Patient stated goals: Goals: Other Goal Goal: Patient stated she would like a mental break from reality. Assessment/Impressions: Discharge Plan: Discharge Goals/Objectives: Discharge from hospital with referrals/linkage to supportive services/current providers Emergency Department Throughput: Medical Clearance Initial Date: 03/23/24 Initial Time: 2157 Coordination of care with: ED RN, ED LIP Review and Staffing: Reviewed medical history with physician: Yes Reviewed abnormal labs with physician: Yes Discussed case with Jefferson Alvarado DO, who states that Saran Mendez is not a candidate for admission. Total time spent (minutes) in Supportive Care for this patient: Final Disposition Information: Is Patient Less Than 18 Years of Age or have a Guardian/Healthcare Power of Chair?: No Disposition Date: 03/23/24 Disposition Time: 2321 SIGNATURE: ENA Ramos PATIENT NAME: Saran Mendez DATE: March 23, 2024 TIME: 9:02 PM [facility] 03-23-2024 Miscellaneous Notes Images from the original note were not included. Psychiatric Crisis Initial Assessment Date of Service: March 23, 2024 Service Time: 9:02 PM Referral Type: [facility] ED Service Method: Telephone Sources of Information: Patient, Epic, Prior Referrals, ED Staff Nature of the crisis: Patient endorsed having a mental health crisis. Presenting Problem: Saran Mendez, 2000, is a 24 year old female brought in to [facility] ED from the Community by self for psychiatric evaluation. Subjective: Patient reported having a mental health crisis for several days, reported she has been to [facility] in the past. When asked about psychosocial stressors, the patient reported she found out her ex-boyfriend killed his mother and feels this affected me strongly. She initially reported she has not taken any psychotropic medications in some time, later reported she took her medication today and is prescribed Wellbutrin. She endorsed seeing a psychiatrist through [facility] but feels this has been inconsistent. Patient reported she would like to be admitted to the hospital, but has been sitting here a long time. I really just need a mental break from reality. Inpatient Mental Health Treatment History: Prior Hospitalization History: Over 90 Days Ago Last Hospitalization Location: [facility] 11/21/2021 - 11/26/2021 (5 days) Reasons for Last Admission: Patient was admitted for substance induced psychosis alongside depression. Outpatient Mental Health Treatment History: Prior Psychiatric Diagnoses: Bipolar 2 disorder, Personality disorder traits, Polysubstance abuse Current Provider(s): Patient reported she sees a different provider with psychiatry calls through [facility] Agency/Organization: [facility] Treatment Adherence: Intermittent adherence with treatment recommendations Medication(s): busPIRone (BUSPAR) 5 mg tablet Take 5 mg by mouth three times a day. buPROPion XL (WELLBUTRIN XL) 300 mg 24 hr tablet Take 300 mg by mouth. QUEtiapine (SEROQUEL) 100 mg tablet Take 100 mg by mouth daily at bedtime. buPROPion SR (WELLBUTRIN SR) 100 mg 12 hr tablet Take 1 tablet by mouth twice daily. No medication comments found. Toxicology History: Latest Ref Rng & Units 03/23/2024 11/21/2021 11/15/2021 Labs Amphetamines Negative Preliminary positive Preliminary positive Preliminary positive Ethanol, Urine <11 mg/dL <11 <11 <11 Barbiturates Negative Negative Negative Negative Benzodiazepines Urine Negative Preliminary positive Negative Negative Cocaine Urine Negative Preliminary positive Negative Negative Opiates Negative Negative Negative Negative Oxycodone, Urine Negative Negative Negative Negative Phencyclidine Negative Negative Negative Negative Cannabinoids, Urine Negative Preliminary positive Preliminary positive Preliminary positive Mental Status Exam: Appearance: Appears Stated Age, Well Groomed, Well Dressed Alert: Yes Oriented: Person, Place, Time, Situation Activity/Motor: Appropriate Cooperation: Cooperative Speech Quantity: Appropriate Speech Rate: Appropriate Speech Volume: Appropriate Speech Quality: Clear, Appropriate to Topic Mood Observed: Euthymic Range of Affect: Full Thought Content: Hallucinations: Patient Denies, None Evident Delusions: None Observed Thought Process: Linear and Organized Insight: Fair Judgment: Fair Cognitive: Impairment: None Memory: Intact Recent, Intact Remote Self-Harm History: Non-Suicidal Self Injury: None, Patient Denies Suicide Risk: Suicidal Ideation: Patient Denies, None Non-Lethal Harm to Others: Harm to Others or Damage/Destruction of Property: None, Patient Denies Homicide Risk: Homicidal Ideation: Patient Denies, None Access to Weapons: Access To Weapons: No Interventions: Interventions: None Patient stated goals: Goals: Other Goal Goal: Patient stated she would like a mental break from reality. Assessment/Impressions: Discharge Plan: Discharge Goals/Objectives: Discharge from hospital with referrals/linkage to supportive services/current providers Emergency Department Throughput: Medical Clearance Initial Date: 03/23/24 Initial Time: 2157 Coordination of care with: ED RN, ED LIP Review and Staffing: Reviewed medical history with physician: Yes Reviewed abnormal labs with physician: Yes Discussed case with Jefferson Alvarado DO, who states that Saran Mendez is not a candidate for admission. Total time spent (minutes) in Supportive Care for this patient: Final Disposition Information: Is Patient Less Than 18 Years of Age or have a Guardian/Healthcare Power of Chair?: No Disposition Date: 03/23/24 Disposition Time: 2321 SIGNATURE: ENA Ramos PATIENT NAME: Saran Mendez DATE: March 23, 2024 TIME: 9:02 PM documented in this encounter [facility] 01-28-2024 Hospital Discharge instructions Patient Education 01/28/2024 17:16:52 Dehydration Dehydration The human body is comprised largely of water. If you lose more fluids than you take in, you can become dehydrated. This means there are not enough fluids in your body for it to function right. Mild dehydration can cause weakness, confusion, or muscle cramps. In extreme cases, it can lead to brain damage and even . That's why prompt treatment is crucial. Risk factors Anyone can become dehydrated. But infants, children, and older adults are at greatest risk. You are most likely to lose fluids with severe vomiting, diarrhea, or a fever. Exercising or working hard especially in hot weather can also cause excess fluid loss. What to do Drinking liquids is the best way to prevent dehydration. Water is best, but juice or frozen pops can also help. For adults, don't use liquids that contain caffeine or alcohol to rehydrate. Your doctor may suggest electrolyte solutions for sick infants and young children. When to go to the emergency room (ER) Go to an ER right away for these symptoms: Adults Very dark urine and little urine output Dizziness, weakness, confusion, fainting Children Sunken eyes Little or no urine output (for infants, no wet diaper in 8 hours) Very dark urine Skin that doesn't bounce back quickly when pinched Crying without tears Lethargy, decreased activity, or increased sleepiness What to expect in the emergency room Your blood pressure, temperature, and heart rate will be checked. You may have blood or urine tests. The main treatment for dehydration is fluids. You may be given these to drink. Or, you may receive them through a vein in your arm. You also may be treated for diarrhea, vomiting, or a high fever. [id number] [employer]. [address] [place] [address], [place] [address]. All rights reserved. This information is not intended as a substitute for professional medical care. Always follow your healthcare professional's instructions. 01/28/2024 17:16:47 Near Syncope, Unknown Near-Fainting with Uncertain Cause Fainting (syncope) is a temporary loss of consciousness (passing out). This happens when blood flow to the brain is reduced. Near-fainting (near-syncope) is like fainting, but you do not fully pass out. Instead, you feel like you are going to pass out, but do not actually lose consciousness. Signs and symptoms The following are symptoms of near-fainting: Feeling lightheaded or like you are going to faint Weak pulse Nausea Sweating Blurred vision or feeling like your vision is fading Palpitations Chest pain Hard time breathing Feeling cool and clammy Causes This happens when your blood pressure suddenly drops, and not enough blood flows to your brain. Common minor causes include: Sudden emotional stress such as fear, pain, panic, or the sight of blood Straining or overexertion, such as straining while using the toilet, coughing, or sneezing Standing up too quickly, or standing up for too long a time More serious causes include: Very slow, fast, or irregular heart rate (arrhythmia) Dehydration Significant blood loss Medicines, or a recent change in medicines. Medicines that can cause fainting include blood pressure or heart medicines. Heart attack Heart valve problems Remember, even minor causes can become serious if you fall and injure yourself, or are driving. You may need more tests. It is very important that you follow up with your doctor as advised. Home care The following guidelines will help you care for yourself at home: Rest today. Resume your normal activities as soon as you are feeling back to normal. If you become lightheaded or dizzy, lie down right away or sit with your head between your knees. Drink plenty of fluids and don't skip meals. Because the exact cause of your near fainting spell is not known, another spell could occur without warning. To stay safe, do not drive a car or use dangerous equipment. Do not take a bath alone. Use a shower instead. Do not swim alone. You can resume these activities when your healthcare provider says that you are no longer in danger of having a near-fainting spell. Follow-up care Follow up with your healthcare provider, or as advised. Call 911 Call 911 if any of the following occur: Another near-fainting or full fainting spell occurs, and it is not explained by the common causes listed above Chest, arm, neck, jaw, back or abdominal pain Shortness of breath Weakness, tingling, or numbness in one side of the face, or in one arm or leg Slurred speech, confusion, trouble walking or seeing Seizure When to seek medical advice Call your healthcare provider right away if any of these occur: Changes in your medicines Occasional mild lightheadedness, especially when standing up too quickly or straining [id number] [employer]. [address] [place] [address]. All rights reserved. This information is not intended as a substitute for professional medical care. Always follow your healthcare professional's instructions. Follow Up Care 01/28/2024 16:35:14 With:[facility] Address: [address] [place] [address] [facility] (1) When:2-4 days With:[facility] Address: [id number] When:2-4 days Comments:Return to ED if symptoms worsen Follow-up with Primary Care Physician With:Follow up with primary care provider Address:Unknown When:2-[address] [facility] 01-28-2024 Emergency department Discharge summary Discharge Instructions Thank you for allowing [facility] to assist you with your healthcare needs. The following is important discharge information regarding your hospital visit. What to Do Next Instructions from Your Care Team I would like for you to continue to stay hydrated by drinking lots of water and electrolytes. Please follow-up with your primary care provider in the next 2-4 days. If you do not have 1 I am providing you with [facility] to schedule an appointment. I am also giving the referral information for the [facility] so that you can have further evaluation of possible seizures. If you have recurrence of your symptoms or any concerns, please return to the emergency department for reevaluation. No qualifying data available. Post Acute Orders No qualifying data available. You Need to Schedule the Following Appointments Follow Up with [facility] When:Within 2-4 days Where:[address] [place] [address]- [employer] (1) Follow Up with [facility] When:Within 2-4 days Where: [id number] Additional Information: Return to ED if symptoms worsen Follow-up with Primary Care Physician Follow Up with Follow up with primary care provider When:Within 2-4 days Allergies No Known Medication Allergies Medications Please ask your primary doctor or pharmacist before taking any other medication not listed, including over the counter drugs, herbal medications, vitamins and or supplements as they may interact with your home medications. Please take this list to your next doctor s visit. Bring all medications you take, including over the counter medications, herbals and other supplements with you to your doctor s visit. Patients and families are reminded to discard old lists and to update any records with all medication providers or retail pharmacies. Education Materials Dehydration The human body is comprised largely of water. If you lose more fluids than you take in, you can become dehydrated. This means there are not enough fluids in your body for it to function right. Mild dehydration can cause weakness, confusion, or muscle cramps. In extreme cases, it can lead to brain damage and even . That's why prompt treatment is crucial. Risk factors Anyone can become dehydrated. But infants, children, and older adults are at greatest risk. You are most likely to lose fluids with severe vomiting, diarrhea, or a fever. Exercising or working hard especially in hot weather can also cause excess fluid loss. What to do Drinking liquids is the best way to prevent dehydration. Water is best, but juice or frozen pops can also help. For adults, don't use liquids that contain caffeine or alcohol to rehydrate. Your doctor may suggest electrolyte solutions for sick infants and young children. When to go to the emergency room (ER) Go to an ER right away for these symptoms: Adults Very dark urine and little urine output Dizziness, weakness, confusion, fainting Children Sunken eyes Little or no urine output (for infants, no wet diaper in 8 hours) Very dark urine Skin that doesn't bounce back quickly when pinched Crying without tears Lethargy, decreased activity, or increased sleepiness What to expect in the emergency room Your blood pressure, temperature, and heart rate will be checked. You may have blood or urine tests. The main treatment for dehydration is fluids. You may be given these to drink. Or, you may receive them through a vein in your arm. You also may be treated for diarrhea, vomiting, or a high fever. [id number] [employer]. [address] [place] [address], [place] [address]. All rights reserved. This information is not intended as a substitute for professional medical care. Always follow your healthcare professional's instructions. Near-Fainting with Uncertain Cause Fainting (syncope) is a temporary loss of consciousness (passing out). This happens when blood flow to the brain is reduced. Near-fainting (near-syncope) is like fainting, but you do not fully pass out. Instead, you feel like you are going to pass out, but do not actually lose consciousness. Signs and symptoms The following are symptoms of near-fainting: Feeling lightheaded or like you are going to faint Weak pulse Nausea Sweating Blurred vision or feeling like your vision is fading Palpitations Chest pain Hard time breathing Feeling cool and clammy Causes This happens when your blood pressure suddenly drops, and not enough blood flows to your brain. Common minor causes include: Sudden emotional stress such as fear, pain, panic, or the sight of blood Straining or overexertion, such as straining while using the toilet, coughing, or sneezing Standing up too quickly, or standing up for too long a time More serious causes include: Very slow, fast, or irregular heart rate (arrhythmia) Dehydration Significant blood loss Medicines, or a recent change in medicines. Medicines that can cause fainting include blood pressure or heart medicines. Heart attack Heart valve problems Remember, even minor causes can become serious if you fall and injure yourself, or are driving. You may need more tests. It is very important that you follow up with your doctor as advised. Home care The following guidelines will help you care for yourself at home: Rest today. Resume your normal activities as soon as you are feeling back to normal. If you become lightheaded or dizzy, lie down right away or sit with your head between your knees. Drink plenty of fluids and don't skip meals. Because the exact cause of your near fainting spell is not known, another spell could occur without warning. To stay safe, do not drive a car or use dangerous equipment. Do not take a bath alone. Use a shower instead. Do not swim alone. You can resume these activities when your healthcare provider says that you are no longer in danger of having a near-fainting spell. Follow-up care Follow up with your healthcare provider, or as advised. Call 911 Call 911 if any of the following occur: Another near-fainting or full fainting spell occurs, and it is not explained by the common causes listed above Chest, arm, neck, jaw, back or abdominal pain Shortness of breath Weakness, tingling, or numbness in one side of the face, or in one arm or leg Slurred speech, confusion, trouble walking or seeing Seizure When to seek medical advice Call your healthcare provider right away if any of these occur: Changes in your medicines Occasional mild lightheadedness, especially when standing up too quickly or straining [id number] [employer]. [address] [place] [address], [place] [address]. All rights reserved. This information is not intended as a substitute for professional medical care. Always follow your healthcare professional's instructions. Additional Information VACCINATE! IT SAVES LIVES! Members of the community who have not yet received the COVID-19 vaccine and would like to receive it can visit one of [facility] vaccine clinics. There are many vaccine clinic locations within the [facility]. For locations and available times, please visit [email or web address].[email or web address] [email or web address] It is important to note that some COVID mobile vaccine clinics are held outdoors and may be canceled in rainy or stormy conditions. To learn more about pediatric vaccinations (ages 5-11), we invite you to visit the [facility] webpage. https://www.[facility].org/p ages/3626-Qxysk-Mmfjpibepbk-Freq nfmqay-Soqbz-Rlzukcrlu.html To learn more about the COVID-19 vaccine, we invite you to visit the CDC website for a list of frequently asked questions. https://www.cdc.gov/coronavirus/ 2019-ncov/vaccines/faq.html [facility] Patient Portal Access Instructions: Stay connected with your healthcare team and access your personal medical information anytime with the [facility] Patient Portal. If you would like a full copy of your medical records please contact the [facility] Medical Records Department Monday through Monday between 8a.m. and 4:30p.m. Please follow the directions below to access the portal: 1.Access the email account you provided upon registration to the hospital.2.Look for an invitation email from [facility].3.Open the email and access the invitation link: Accept Invitation to [facility].Fill in the required lara to create your account. Sign into [email or web address] with your username and password that you created in the above steps to stay up to date. You can then view a summary of results, a summary of your visits, and the ability to download your summaries to your computer or send the information securely to a physician. Remember that your healthcare information is confidential, so carefully consider who you will allow to register on the [email or web address] Patient Portal for access to your information. You can also access the [email or web address] Patient Portal on the [employer] о[employer]а. Simply click on Health Records under Health Data and then click on the [employer] logo. HOW TO SAFELY DISPOSE OF PRESCRIPTION MEDICATIONS Please use one of the following methods to safely dispose of your unused medications. 1.Use a drug disposal kit: the drug disposal pouch allows you to safely discard your old and unused drugs. Ask your nurse to give you one when you are discharged.2.Visit a local take-back location: Many local pharmacies and police departments have programs that collect old and unwanted prescription drugs. Call your local pharmacy or go to http://Goomeo/3T5Nn0t to find one close to you.3.Make use of household items: Use cat litter or old coffee grounds to dispose medications if other options are not available. Mix your drugs with these household products, seal them in an airtight container and throw it into the garbage. Call [facility]: [phone] to be sure your drugs can be disposed of in this way. Some medicines may require a different approach.4.Never flush your medications down the toilet. IF YOU HAVE BEEN PRESCRIBED AN OPIOIDS FOR PAIN If you have been prescribed an opioid (such as hydrocodone, oxycodone or morphine), it is critical to understand the possible side effects and risks of opioid pain medications. Even when taken as directed, opioids can have several side effects including: Tolerance, meaning you might need to take more of a medication for the same pain relief. Nausea, vomiting and/or constipation. Sleepiness, dizziness, dry mouth, confusion, depression or itching. Physical dependence, meaning you have withdrawal symptoms when a medication is stopped ? this can develop within a few days. KNOW YOUR RESPONSIBILITIES It is important to know exactly how much and how often to take the opioid pain medications you are prescribed. Never take opioids in higher amounts or more often than prescribed. Do not combine opioids with alcohol or other drugs that cause drowsiness, such as benzodiazepines, also known as benzos, including diazepam and alprazolam, muscle relaxants or sleep aids. Never sell or share prescription opioids. This is illegal. Store opioids in a secure place and out of reach of others (including children, family, friends and visitors). The last page(s) of this document has been signed and retained as a CHART COPY Signatures Patient Education Materials Dehydration Near Syncope, Unknown Medication Leaflets My discharge plan and instructions have been reviewed and explained to me and I,SARAN MENDEZ understand my current condition and have read and understand these discharge instructions. I have received a written copy of the plan/instructions. If I have questions, I am aware that I should contact my doctor. Patient/Foundation Assistant Signature: Date/Time: Relationship to Patient: Witness Name/Signature: Date/Time: [facility] 01-28-2024 Note ORIGINAL EXAMINATION: ONE XRAY VIEW OF THE CHEST01/28/2024 5:48 pm COMPARISON: None HISTORY: ORDERING SYSTEM PROVIDED HISTORY: Reason for Exam: near syncope FINDINGS: The cardiomediastinal silhouette is within normal limits. No focal consolidation or pulmonary edema. No pleural effusion or visible pneumothorax. No acute skeletal abnormality is seen. IMPRESSION: No acute radiographic finding. I have reviewed the resident's preliminary report and agree with findings and impression. Interpreted by: Moises Joy Preliminary Report By: Jonathan Hein Electronically signed By Moises Joy Dictated Date: 01/28/2024 5:53:58 PM Prelim Date: 01/28/2024 5:55:38 PM Sign Date: 01/28/2024 6:11:29 PM [facility] SINUS TACHYCARDIA LEFT ATRIAL ENLARGEMENT BORDERLINE ECG Electronic Signature: SAMMY MEYERS DO 01/28/2024 17:47:[address] [facility] 07-09-2023 Note HNO ID: [id number] Author: PRECIOUS URIARTE APRN.LUGGAGE LINER Service: Hospital Medicine Author Type: Nurse Practitioner Type: Plan of Care Filed: 07/09/2023 15:22 Note Text: DEPARTMENT OF HOSPITAL MEDICINE PLAN OF CARE NOTE SERVICE DATE: July 09, 2023 SERVICE TIME: 3:13 PM Hospital Medicine/Primary Attending: Department [facility] Medicine NIGHT AND WEEKEND COVERAGE: [facility] Medicine Coverage Use Epic chat [id number] Page [id number] PLAN OF CARE Full HANDP to follow 23 year old female presented with c/o flank pain and nausea. Per notes, symptoms began several days prior. She was seen outpatient and diagnosed with UTI and treated with ciprofloxacin. Today, reports worsening pain to lower back and bilateral flank areas. CT abd/pelvis showed There are regions of relative decreased enhancement at the upper and mid portions of the right kidney suspicious for pyelonephritis. No adrenal abscess. No evidence of urinary tract calculi. No hydronephrosis. Subtle urothelial enhancement of the right renal pelvis and proximal ureter as may be seen with inflammation/infection. 2.6 cm fluid attenuation mass in the spleen superiorly is likely a cyst or hemangioma. Splenomegaly noted. 3.8 x 3.2 cm cystic structure in the left adnexa is likely a functional cyst. Labs remarkable for WBC 18.55; ANC 15.83; AST/ALT 40/50; UA showed WBC 11-25 and few bacteria. Urine culture pending. Started on Rocephin and received fluid bolus. EKG showed ST. [facility] normal. Admitted under hospitalist service 07/09/23 1154 07/09/23 1155 07/09/23 1421 07/09/23 1422 BP: 126/75 116/63 Pulse: (!) 120 Resp: 18 Temp: 36.3 ?C (97.3 ?F) TempSrc: Temporal SpO2: 100% 100% Weight: 63.5 kg (140 lb) Hemoglobin (g/dL) Date Value 07/09/2023 13.7 Hematocrit (%) Date Value 07/09/2023 43.5 WBC (k/uL) Date Value 07/09/2023 18.55 Glucose (mg/dL) Date Value 07/09/2023 99 Potassium (mmol/L) Date Value 07/09/2023 4.5 Sodium (mmol/L) Date Value 07/09/2023 136 Chloride (mmol/L) Date Value 07/09/2023 99 CO2 (mmol/L) Date Value 07/09/2023 25 Creatinine (mg/dL) Date Value 07/09/2023 0.81 BUN (mg/dL) Date Value 07/09/2023 14 Anion Gap (mmol/L) Date Value 07/09/2023 12 Calcium, Total (mg/dL) Date Value 07/09/2023 9.7 Protein, Total (g/dL) Date Value 07/09/2023 7.7 Albumin (g/dL) Date Value 07/09/2023 4.3 Bilirubin, Total (mg/dL) Date Value 07/09/2023 1.3 Alkaline Phosphatase (U/L) Date Value 07/09/2023 129 AST (U/L) Date Value 07/09/2023 40 ALT (U/L) Date Value 07/09/2023 50 Plan -Admit to [facility] -Continue IV rocephin; stop cipro -IV hydration -pain control -antiemetics -daily labs -follow blood and urine culture results -resume home medications SIGNATURE: Precious Uriarte APRN.LUGGAGE LINER PATIENT NAME: Saran Mendez DATE: July 09, 2023 TIME: 3:13 PM [facility] 07-08-2023 History of Present illness Narrative [facility] О[facility]ГА NOTE: Name: Saran Mendez, 23 y.o. CSN:[id number] PCP: Aneta Crabtree MD ALL: No Known Allergies History: Chief Complaint: UTI (Lower back pain, fever, Dysuria x 3 days) Encounter Date: 07/08/2023 14:15hrs HPI: The history was obtained from the patient. Saran is a 23 y.o. female, who presents with a chief complaint of UTI (Lower back pain, fever, Dysuria x 3 days) Denies any fever, nausea, vomiting and diarrhea. MA indicates temperature but did not had any recorded note patient has not recorded any at home. PMHx: Past Medical History: Diagnosis Date Abnormal levels of other serum enzymes 09/02/2015 Elevated alkaline phosphatase level Acute vaginitis 04/26/2019 Acute vaginitis Acute vaginitis Gardnerella vaginitis Bipolar disorder, currently in remission, most recent episode unspecified ([facility]) 02/01/2022 History of depressed bipolar disorder Cellulitis, unspecified 08/22/2013 Cellulitis Contact with and (suspected) exposure to infections with a predominantly sexual mode of transmission STD exposure Contact with and (suspected) exposure to infections with a predominantly sexual mode of transmission 11/14/2018 STD exposure Contact with and (suspected) exposure to infections with a predominantly sexual mode of transmission 11/07/2019 STD exposure Encounter for follow-up examination after completed treatment for conditions other than malignant neoplasm 02/02/2021 Hospital discharge follow-up Encounter for follow-up examination after completed treatment for conditions other than malignant neoplasm 10/29/2018 Hospital discharge follow-up Encounter for immunization 10/07/2016 Immunization due Encounter for screening for infections with a predominantly sexual mode of transmission 01/23/2019 Screen for STD (sexually transmitted disease) Localized enlarged lymph nodes 06/07/2019 Inguinal adenopathy Other chest pain 02/13/2015 Chest discomfort Personal history of diseases of the skin and subcutaneous tissue 06/07/2019 History of folliculitis Personal history of other diseases of the digestive system 10/30/2017 History of gastroenteritis Personal history of other diseases of the female genital tract 11/07/2019 History of vaginal discharge Personal history of other diseases of the respiratory system 02/03/2016 History of sore throat Personal history of other diseases of the respiratory system 03/17/2019 History of acute sinusitis Personal history of other diseases of urinary system 02/02/2021 History of hematuria Personal history of other endocrine, nutritional and metabolic disease 08/20/2020 History of dehydration Personal history of other infectious and parasitic diseases 10/29/2018 History of candidiasis Personal history of other mental and behavioral disorders History of depression Personal history of other specified conditions 10/30/2017 History of diarrhea Personal history of other specified conditions 10/30/2017 History of nausea Personal history of other specified conditions 10/30/2017 History of vomiting Personal history of other specified conditions 02/03/2016 History of fatigue Rash and other nonspecific skin eruption 11/07/2019 Rash Sexually transmitted chlamydial infection of other sites 10/29/2018 Chlamydia trachomatis infection Swimmer's ear, right ear 10/07/2016 Acute swimmer's ear of right side Urinary tract infection, site not specified 06/08/2020 Acute UTI Current Outpatient Medications Medication Sig Dispense Refill buPROPion XL (Wellbutrin XL) 300 mg 24 hr tablet Take 1 tablet (300 mg) by mouth once daily. Do not crush, chew, or split. QUEtiapine (SEROquel) 200 mg tablet Take 1 tablet (200 mg) by mouth once daily at bedtime. busPIRone (Buspar) 30 mg tablet Take 1 tablet (30 mg) by mouth 2 times a day. ciprofloxacin (Cipro) 250 mg tablet Take 1 tablet (250 mg) by mouth 2 times a day for 3 days. 6 tablet 0 cloNIDine (Catapres) 0.1 mg tablet divalproex (Depakote) 500 mg EC tablet Take 1 tablet (500 mg) by mouth 2 times a day. ergocalciferol (Vitamin D-2) 1.25 MG (42912 UT) capsule Take 1 capsule (1,250 mcg) by mouth 1 (one) time per week. hydrOXYzine pamoate (Vistaril) 50 mg capsule TAKE ONE CAPSULE BY MOUTH EVERY 6 HOURS IF NEEDED naltrexone (Depade) 50 mg tablet Take 1 tablet (50 mg) by mouth once daily at bedtime. propranolol (Inderal) 10 mg tablet Take 1 tablet (10 mg) by mouth 2 times a day. No current facility-administered medications for this visit. PMSx: Past Surgical History: Procedure Laterality Date OTHER SURGICAL HISTORY 10/30/2017 Non-Biodegradable Drug Delivery Implant, Insertion TONSILLECTOMY 08/22/2013 Tonsillectomy With Adenoidectomy Fam Hx: No family history on file. SOC. Hx: Social History Socioeconomic History Marital status: Significant Other Spouse name: Not on file Number of children: Not on file Years of education: Not on file Highest education level: Not on file Occupational History Not on file Tobacco Use Smoking status: Every Day Types: Cigarettes Smokeless tobacco: Never Substance and Sexual Activity Alcohol use: Not Currently Drug use: Yes Types: Marijuana Comment: Several times daily Sexual activity: Not on file Other Topics Concern Not on file Social History Narrative Not on file Social Determinants of Health Financial Resource Strain: Not on file Food Insecurity: Not on file Transportation Needs: Not on file Physical Activity: Not on file Stress: Not on file Social Connections: Not on file Intimate Partner Violence: Not on file Housing Stability: Not on file Vitals: 07/08/23 1411 BP: 125/88 Pulse: (!) 123 Temp: 37.5 C (99.5 F) SpO2: 99% 64.4 kg (142 lb) Physical Exam Constitutional: Appearance: Normal appearance. She is normal weight. HENT: Head: Normocephalic and atraumatic. Nose: Nose normal. Mouth/Throat: Mouth: Mucous membranes are moist. Eyes: Extraocular Movements: Extraocular movements intact. Cardiovascular: Rate and Rhythm: Normal rate and regular rhythm. Pulmonary: Effort: Pulmonary effort is normal. Breath sounds: Normal breath sounds. Abdominal: General: Abdomen is flat. Palpations: Abdomen is soft. There is no hepatomegaly or splenomegaly. Tenderness: There is no abdominal tenderness. There is no right CVA tenderness or left CVA tenderness. Musculoskeletal: General: Normal range of motion. Cervical back: Normal range of motion and neck supple. Skin: General: Skin is warm. Neurological: Mental Status: She is alert and oriented to person, place, and time. Psychiatric: Behavior: Behavior normal. LABORATORY @ RADIOLOGICAL IMAGING (if done): Results for orders placed or performed in visit on 07/08/23 (from the past 24 hour(s)) POCT UA (nonautomated w/o microscopy) manually resulted Result Value Ref Range POC Color, Urine Yellow Straw, Yellow, Light-Yellow POC Appearance, Urine Clear Clear POC Glucose, Urine NEGATIVE NEGATIVE mg/dl POC Bilirubin, Urine NEGATIVE NEGATIVE POC Ketones, Urine NEGATIVE NEGATIVE mg/dl POC Specific [place], Urine 1.025 1.005 - 1.035 POC Blood, Urine SMALL (1+) (A) NEGATIVE POC PH, Urine 7.0 No Reference Range Established PH POC Protein, Urine 30 (1+) NEGATIVE, 30 (1+) mg/dl POC Urobilinogen, Urine 0.2 0.2, 1.0 EU/DL Poc Nitrite, Urine POSITIVE (A) NEGATIVE POC Leukocytes, Urine MODERATE (2+) (A) NEGATIVE ____ I did personally review Saran's past medical history, surgical history, social history, as well as family history (when relevant). In this case, I also oversaw the her drug management by reviewing her medication list, allergy list, as well as the medications that I prescribed during the UC course and/or recommended as an out-patient (including possible OTC medications such as acetaminophen, NSAIDs , etc). After reviewing the items above, I did look at previous medical documentation, such as recent hospitalizations, office visits, and/or recent consultations with PCP/specialist. SDOH: Another factor that I considered in Saran's care was her Social Determinants of Health (SDOH). During this UC encounter, she did not have social determinants of health. Those SDOH influencing Saran's care are: none UC COURSE/MEDICAL DECISION MAKING: Saran is a 23 y.o., who presents with a working diagnosis of 1. Acute cystitis with hematuria with a differential to include: Cystitis, pyelo-, interstitial cystitis, STI Nitrate positive urine will be sent for culture and sensitivity, will initiate Cipro for 3 days and notify of results when available. Medications can always be extended if necessary, should be given only note for work and discharged with significant other. Jose Jauregui PA-C Advanced Practice Provider [facility] documented in this encounter [facility] Work Phone: 07-05-2023 Note HNO ID: [id number] Author: KENDALL TALLEY DPM Service: ? Author Type: Physician Type: Progress Notes Filed: 07/19/2023 19:33 Note Text: CC: right foot injury Fracture Care Day # 0 HPI: This 23 year old female with PMH indicated below presents today for right foot injury. Patient states that injuried right foot on 06/29/2023. Patient states that she kicked a door. She presented to ED where x-rays were taken and patient was told that broke a bone in their foot. Patient states has been ambulating in surgical shoe since that time. Pain is moderate. Patient denies numbness and tingling. Patient states that she would like a CAM Boot because she has pain with the Surgical Shoe. Denies any current nausea, vomiting, fever, chills, shortness of breath, chest pain or calf pain. Denies any other pedal complaints. Aneta Crabtree MD, MD History reviewed. No pertinent past medical history. Current Outpatient Medications Medication Sig Dispense Refill buPROPion XL (WELLBUTRIN XL) 300 mg 24 hr tablet Take 300 mg by mouth. QUEtiapine (SEROQUEL) 100 mg tablet Take 100 mg by mouth daily at bedtime. ARIPiprazole (ABILIFY) 5 mg tablet Take 1 tablet by mouth once daily. 30 tablet 0 buPROPion SR (WELLBUTRIN SR) 100 mg 12 hr tablet Take 1 tablet by mouth twice daily. 60 tablet 0 ergocalciferol 50,000 unit capsule (VITAMIN D2, DRISDOL) Take 1 capsule by mouth one time a week. 12 capsule 0 nicotine polacrilex (NICORETTE) 2 mg gum Take 1 Each by mouth every 2 hours as needed. (Patient not taking: Reported on 07/05/2023) venlafaxine ER (EFFEXOR XR) 37.5 mg 24 hr capsule Take 3 capsules by mouth daily with breakfast. 90 capsule 0 No current facility-administered medications for this visit. ALLERGIES No Known Allergies PAST SURGICAL HISTORY Procedure Laterality Date TONSILLECTOMY HX Social History Tobacco Use Smoking status: Some Days Types: Cigarettes Passive exposure: Current Smokeless tobacco: Never Vaping Use Vaping Use: current everyday user Substances: Nicotine Substance Use Topics Alcohol use: No Drug use: Not Currently Types: Marijuana, Amphetamines History reviewed. No pertinent family history. REVIEW OF SYSTEMS ROS Negative Except as Noted in HPI Physical examination: On General Observation: Patient is a pleasant, cooperative, well developed 23 year old adult female. The patient is alert and oriented to time, place and person. Patient has normal affect and mood. Resp 18 Ht 177.8 cm (5' 10) Wt 63.5 kg (140 lb) BMI 20.09 kg/m? Patient presents in post op shoe today. Vascular: DP and PT pulses are palpable. CFT less than 3 seconds to all digits bilateral. Skin temperature is warm to warm from proximal to distal bilateral. Hair growth is noted. Positive edema noted overlying 1st digit right foot. Neuro: Light touch intact bilateral. No clonus noted. Derm: Skin texture and turgor within normal limits. Toenails normal in appearance. Webspaces 1-4 clean, dry, intact bilateral. No rashes, subcutaneous nodules, or open lesions noted. No hyperkeratotic tissue. + ecchymosis noted to 1st digit right. No fracture blisters noted. Musc: Muscle strength is 5/5 for all muscle groups including dorsiflexors, plantarflexors, everters, and inverters b/l. There is local edema and ecchymosis noted at the to 1st digit right foot. Pain to palpation to the global 1st digit right foot. No pain to the metatarsal shafts. No pain with MTPJ ROM. Flexor and extensor strength maintained to digital level. No pain noted to palpation of the cuboid or the adjacent metatarsals or lisfranc joint complex. Ankle joint ROM is decreased b/l. Last XR Foot - Impression Only XR FOOT GENERAL 3V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 bipolar 2 disorder there. She was discharged to a rehab program in [place] for 12 days, then transferred to [facility] for high level of care. She spent 30 days in rehab in [place] and discharged on 01/07/22. She now takes: Wellbutrin XL 150mg BID, lithium carbonate 150mg BID, buspirone 30mg BID, trazodone 150mg nightly, quetiapine 200mg nightly. She says she is tolerating her current medications. She continues to feel depressed per self report. She has been sleeping more than before. It it difficult to get out of bed. Energy is low. Appetite is good - she has 2 meals per day. She feels sluggish sometimes. Concentration is poor. She used to enjoying making crafts, crocheting, going out; she does not enjoy anything now. She denies anxiety or worries. She smokes cigarettes but she has not used other substances since 11/12/21.I have personally reviewed the OARRS report for SARAN MENDEZ. I have considered the risks of abuse, dependence, addiction and diversion. [facility] [address] [place] [address] Work Phone: 11-15-2021 History of Present illness Narrative She was admitted once psychiatrically in November for suicidal ideation; she was diagnosed with bipolar 2 disorder there. She was discharged to a rehab program in [place] for 12 days, then transferred to [facility] for Recovery for high level of care. She spent 30 days in rehab in [place] and discharged on 01/07/22. She now takes: Wellbutrin XL 150mg BID, lithium carbonate 150mg BID, buspirone 30mg BID, trazodone 150mg nightly, quetiapine 200mg nightly. She says she is tolerating her current medications. She continues to feel depressed per self report. She has been sleeping more than before. It it difficult to get out of bed. Energy is low. Appetite is good - she has 2 meals per day. She feels sluggish sometimes. Concentration is poor. She used to enjoying making crafts, crocheting, going out; she does not enjoy anything now. She denies anxiety or worries. She smokes cigarettes but she has not used other substances since 11/12/21.I have personally reviewed the OARRS report for SARAN MENDEZ. I have considered the risks of abuse, dependence, addiction and diversion. [facility] [address] [place] Work Phone: 08-18-2021 History of Present illness Narrative 21yo F presents for continued depression and anxiety management. She says she began feeling depressed in 5th grade; she developed anxiety during her freshman year of high school. She began seeing a therapist at that time, usually once weekly. She tried Zoloft in high school for 6 months without significant benefit. She subsequently took Prozac for 9-12 months but the perceived benefit reached a plateau. She began using cannabis at 15yo. See below for substance history.She reports multiple depressive symptoms (low mood, poor appetite, fatigue, guilt/worthlessness, poor concentration) for >1 month now. She says venlafaxine helps. She requests increase in venlafaxine ER and refill in trazodone. She denies adverse effects of medications.I have personally reviewed the OARRS report for SARAN RITAPHILIPP. I have considered the risks of abuse, dependence, addiction and diversion.Is the patient prescribed a combination of a benzodiazepine and opioid? No. [employer] [address] [place] Work Phone: 08-17-2021 History of Present illness Narrative 21yo F presents for continued depression and anxiety management. She says she began feeling depressed in 5th grade; she developed anxiety during her freshman year of high school. She began seeing a therapist at that time, usually once weekly. She tried Zoloft in high school for 6 months without significant benefit. She subsequently took Prozac for 9-12 months but the perceived benefit reached a plateau. She began using cannabis at 15yo. See below for substance history.She reports multiple depressive symptoms (low mood, poor appetite, fatigue, guilt/worthlessness, poor concentration) for >1 month now. She says venlafaxine helps. She requests increase in venlafaxine ER and refill in trazodone. She denies adverse effects of medications.I have personally reviewed the OARRS report for SARAN RITAPHILIPP. I have considered the risks of abuse, dependence, addiction and diversion.Is the patient prescribed a combination of a benzodiazepine and opioid? No. [employer] [address] [place] Work Phone: 08-20-2020 History of Present illness Narrative pt is here to discuss depressionscales reviewedpt had been to ov 08/20/20 for suspected UTI but u cx was neg, however u/a did show blood- pt has been referred to urologistpt has made appointment with urologist------at that appointment she scored high on PHQ9- 15- mod/severe so she is here today to discussQ9=0pt has hx depression - in 2019 was on Prozac;in 2016 pt saw specialists- Dr Reynolds/Dr Zamudio and was on Zoloftprior PHQ9 score- 2019=16currently pt is not on any medication [facility] Work Phone: Chief complaint Narrative - Reported An interactive audio and video telecommunication system which permits real time communications between the patient (at the originating site) and provider (at the distant site) was utilized to provide this telehealth service.Medication management, substance use QP-Vgujxospve-Niwrwt [facility] Work Phone: Chief complaint Narrative - Reported An interactive audio and video telecommunication system which permits real time communications between the patient (at the originating site) and provider (at the distant site) was utilized to provide this telehealth service.Medication management, substance use GP-Isqbmfulss-Amphzf [address] [place] [address] Work Phone: Chief complaint Narrative - Reported An interactive audio and video telecommunication system which permits real time communications between the patient (at the originating site) and provider (at the distant site) was utilized to provide this telehealth service.Follow up for MDD and ABIMAEL MH-Joolnvbidg-Welbnf [facility] Work Phone: Chief complaint Narrative - Reported An interactive audio and video telecommunication system which permits real time communications between the patient (at the originating site) and provider (at the distant site) was utilized to provide this telehealth service.Follow up for MDD and ABIMAEL HO-Isuwdqczaq-Aswwbg [address] [place] [address] Work Phone: Chief complaint Narrative - Reported An interactive audio and video telecommunication system which permits real time communications between the patient (at the originating site) and provider (at the distant site) was utilized to provide this telehealth service. OC-Ssehnipchf-Xfzlha [facility] Work Phone: Chief complaint Narrative - Reported An interactive audio and video telecommunication system which permits real time communications between the patient (at the originating site) and provider (at the distant site) was utilized to provide this telehealth service. EH[facility] [place] Work Phone: Evaluation + Plan note No data available for this section [facility] Evaluation note Diagnosis Current severe episode of major depressive disorder without psychotic features without prior episode (HCC)- Primary [facility] Vitamin D deficiency- Primary Bipolar 2 disorder (CMS/HCC) Other bipolar disorders Bipolar depression (CMS/HCC) Bipolar I disorder, most recent episode (or current) depressed, unspecified Depression, major, in remission (CMS/HCC) Cannabis use disorder Methamphetamine abuse (CMS/HCC) Nondependent amphetamine or related acting sympathomimetic abuse, unspecified documented in this encounter [facility] Work Phone: Evaluation note* Diagnosis Acute cystitis with hematuria- Primary documented in this encounter [facility] Work Phone: Evaluation note* Diagnosis Nondisplaced fracture of distal phalanx of right great toe, initial encounter for closed fracture- Primary [facility] Diagnosis Suicidal ideation- Primary Severe episode of recurrent major depressive disorder, 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) documented in this encounter [facility] Work Phone: History of Present illness Narrative* pt is here for PE/health maintenance * she is doing well * anxiety /depression- referred to psychiatrist- who did she see?_ doesn t remember name was not one referred too only saw once * today PHQ9 was done- see above - has not seen psychiatry -pt ran out of Effexor - wants refill until she sees Psychiatrist - 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 She has been doing that on her right arm region and is concerned about some areas that have become blisteredand painful. No fever. Review of systems is otherwise negative for constitutional, ear nose and throat, neck, heart, lungs, and abdomen.MP-[facility] Work Phone: History of Present illness Narrative* 21yo F with history of depression and generalized anxiety who presents for continued medication management. Since the last visit, when venlafaxine was increased, skin picking has decreased. Mood has improved somewhat as well. Sleep has also improved; she feels rested.mostly. She continues to havefeelings of guilt/worthlessness at times. Energy level has improved but it still varies per pt. Appetite has not changed significantly. Concentration has improved. Anxiety has no improved. Since the last visit (08/17), she has had 10 or less panic attacks, lasting 10 minutes or so. She continues to use methamphetamine twice weekly, most recently a few days ago. She has not engaged with Gaopeng tance use treatment yet. She also uses cannabis daily. * I have personally reviewed the OARRS report for SARAN MENDEZ. I have considered the risks of abuse, dependence, addiction and diversion. VW[facility]eg[facility]nb[facility] [address] [place] Work Phone: History of Present illness Narrative* 21yo F with history of depression and generalized anxiety who presents for continued medication management. Since the last visit, when venlafaxine was increased, skin picking has decreased. Mood has improved somewhat as well. Sleep has also improved; she feels rested.mostly. She continues to havefeelings of guilt/worthlessness at times. Energy level has improved but it still varies per pt. Appetite has not changed significantly. Concentration has improved. Anxiety has no improved. Since the last visit (08/17), she has had 10 or less panic attacks, lasting 10 minutes or so. She continues to use methamphetamine twice weekly, most recently a few days ago. She has not engaged with Gaopeng tance use treatment yet. She also uses cannabis daily. * I have personally reviewed the OARRS report for SARAN MENDEZ. I have considered the risks of abuse, dependence, addiction and diversion. [facility] [place] Work Phone: History of Present illness Narrative* 22-year-old female presents for evaluation after being told that her partner tested positive for chlamydia. She is unsure if she really has any symptoms associated with the chlamydia because she states she is currently on her menses. She has some mid abdominal cramping. No other vaginal discharge or bleeding. No fever or chills but has reported a sore throat as well as right ear pain. * She was treated in the past for chlamydia with azithromycin. Opts for STI treatment and testing forboth gonorrhea and chlamydia. States she sees a provider annually for Pap screening * ROS: 7 body systems reviewed and otherwise negative unless dictated in the history of present illness. [facility] Work Phone: History of Present illness Vlwzhnosl09-ebuj-vpe female here for nail infection. Patient states she picks at and bites her nails compulsively. She states over the past 4 to 5 days they have gotten infected. She states they are all tender. She states the left middle finger is the most tender. She has not taken anything or applied anything to the area. She denies fever chills body aches or other systemic complaints. All other reviewof systems is negative for the chief complaint.-[facility] Work Phone: Reason for referral (narrative)* Consultation (Routine) - Authorized Specialty Diagnoses / Procedures Referred By Alexia wolff Referred To Contact Primary Care Diagnoses Vitamin D deficiency Procedures Follow Up In [facility] - PCP - Established Aneta Crabtree MD [address] [facility] [place] [address] [place] [id number] Referral ID Status Reason Start Date Expiration Date V isits Requested Visits Authorized [id number] Authorized 02/28/2023 02/28/2024 1 1 * Consultation (Routine) - Authorized Specialty Diagnoses / Procedures Referred By Contac t Referred To Contact Psychiatry Diagnoses Bipolar 2 disorder (CMS/HCC) Bipolar depression (CMS/HCC) Depression, major, in remission (CMS/HCC) Cannabis use disorder Methamphetamine abuse (CMS/HCC) Aneta Crabtree MD [address] [facility], [address] [place] [address] Referral ID Status Reason Start Date Expiration Date Visits Requested Visits Authorized [id number] Authorized Specialty Services Required 3 02/28/2024 1 1 [facility] Work Phone: Summary Purpose Family History No Family History Records Found Mother Name Dates Details Family history unknown(V49.8 9, Z78.9) Status:Active Father Name Dates Details Family history unknown(V49.8 9, Z78.9) Status:Active Mother Name Dates Details Family history unknown(V49.8 9, Z78.9) Status:Active Father Name Dates Details Family history unknown(V49.8 9, Z78.9) Status:Active Mother Name Dates Details Family history unknown(V49.8 9, Z78.9) Status:Active Father Name Dates Details Family history unknown(V49.8 9, Z78.9) Status:Active Mother Name Dates Details Family history unknown(V49.8 9, Z78.9) Status:Active Father Name Dates Details Family history unknown(V49.8 9, Z78.9) Status:Active Mother Name Dates Details Family history unknown(V49.8 9, Z78.9) Status:Active Father Name Dates Details Family history unknown(V49.8 9, Z78.9) Status:Active Mother Name Dates Details Family history unknown(V49.8 9, Z78.9) Status:Active Father Name Dates Details Family history unknown(V49.8 9, Z78.9) Status:Active Mother Name Dates Details Family history unknown(V49.8 9, Z78.9) Status:Active Father Name Dates Details Family history unknown(V49.8 9, Z78.9) Status:Active Mother Name Dates Details Family history unknown(V49.8 9, Z78.9) Status:Active Father Name Dates Details Family history unknown(V49.8 9, Z78.9) Status:Active Mother Name Dates Details Family history unknown(V49.8 9, Z78.9) Status:Active Father Name Dates Details Family history unknown(V49.8 9, Z78.9) Status:Active Mother Name Dates Details Family history unknown(V49.8 9, Z78.9) Status:Active Father Name Dates Details Family history unknown(V49.8 9, Z78.9) Status:Active Mother Name Dates Details Family history unknown(V49.8 9, Z78.9) Status:Active Father Name Dates Details Family history unknown(V49.8 9, Z78.9) Status:Active Mother Name Dates Details Family history unknown(V49.8 9, Z78.9) Status:Active Father Name Dates Details Family history unknown(V49.8 9, Z78.9) Status:Active Mother Name Dates Details Family history unknown(V49.8 9, Z78.9) Status:Active Father Name Dates Details Family history unknown(V49.8 9, Z78.9) Status:Active Mother Name Dates Details Family history unknown(V49.8 9, Z78.9) Status:Active Father Name Dates Details Family history unknown(V49.8 9, Z78.9) Status:Active Mother Name Dates Details Family history unknown(V49.8 9, Z78.9) Status:Active Father Name Dates Details Family history unknown(V49.8 9, Z78.9) Status:Active Mother Name Dates Details Family history unknown(V49.8 9, Z78.9) Status:Active Father Name Dates Details Family history unknown(V49.8 9, Z78.9) Status:Active Mother Name Dates Details Family history unknown(V49.8 9, Z78.9) Status:Active Father Name Dates Details Family history unknown(V49.8 9, Z78.9) Status:Active Mother Name Dates Details Family history unknown(V49.8 9, Z78.9) Status:Active Father Name Dates Details Family history unknown(V49.8 9, Z78.9) Status:Active Mother Name Dates Details Family history unknown(V49.8 9, Z78.9) Status:Active Father Name Dates Details Family history unknown(V49.8 9, Z78.9) Status:Active Unknown Family Member Name Dates Details Family history unknown: Moth er, Father(V49.89, Z78.9) Status:Active Unknown Family Member Name Dates Details Family history unknown: Moth er, Father(V49.89, Z78.9) Status:Active Unknown Family Member Name Dates Details Family history unknown: Moth er, Father(V49.89, Z78.9) Status:Active Unknown Family Member Name Dates Details Family history unknown: Moth er, Father(V49.89, Z78.9) Status:Active Unknown Family Member Name Dates Details Family history unknown: Moth er, Father(V49.89, Z78.9) Status:Active Unknown Family Member Name Dates Details Family history unknown: Moth er, Father(V49.89, Z78.9) Status:Active Unknown Family Member Name Dates Details Family history unknown: Moth er, Father(V49.89, Z78.9) Status:Active Anxiety and depression: Moth er Status:Active Unknown Family Member Name Dates Details Anxiety and depression: Moth er Status:Active Family history unknown: Moth er, Father(V49.89, Z78.9) Status:Active Unknown Family Member Name Dates Details Family history unknown: Moth er, Father(V49.89, Z78.9) Status:Active Anxiety and depression: Moth er Status:Active Unknown Family Member Name Dates Details Family history unknown: Moth er, Father(V49.89, Z78.9) Status:Active Anxiety and depression: Moth er Status:Active Unknown Family Member Name Dates Details Family history unknown: Moth er, Father(V49.89, Z78.9) Status:Active Anxiety and depression: Moth er Status:Active Unknown Family Member Name Dates Details Family history unknown: Moth er, Father(V49.89, Z78.9) Status:Active Anxiety and depression: Moth er Status:Active Unknown Family Member Name Dates Details Family history unknown: Moth er, Father(V49.89, Z78.9) Status:Active Anxiety and depression: Moth er Status:Active Unknown Family Member Name Dates Details Family history unknown: Moth er, Father(V49.89, Z78.9) Status:Active Anxiety and depression: Moth er Status:Active Unknown Family Member Name Dates Details Family history unknown: Moth er, Father(V49.89, Z78.9) Status:Active Anxiety and depression: Moth er Status:Active Unknown Family Member Name Dates Details Family history unknown: Moth er, Father(V49.89, Z78.9) Status:Active Anxiety and depression: Moth er Status:Active Unknown Family Member Name Dates Details Family history unknown: Moth er, Father(V49.89, Z78.9) Status:Active Anxiety and depression: Moth er Status:Active Unknown Family Member Name Dates Details Family history unknown: Moth er, Father(V49.89, Z78.9) Status:Active Anxiety and depression: Moth er Status:Active Unknown Family Member Name Dates Details Anxiety and depression: Moth er Status:Active Family history unknown: Moth er, Father(V49.89, Z78.9) Status:Active Unknown Family Member Name Dates Details Family history unknown: Moth er, Father(V49.89, Z78.9) Status:Active Anxiety and depression: Moth er Status:Active Unknown Family Member Name Dates Details Family history unknown: Moth er, Father(V49.89, Z78.9) Status:Active Anxiety and depression: Moth er Status:Active Unknown Family Member Name Dates Details Family history unknown: Moth er, Father(V49.89, Z78.9) Status:Active Anxiety and depression: Moth er Status:Active Unknown Family Member Name Dates Details Family history unknown: Moth er, Father(V49.89, Z78.9) Status:Active Anxiety and depression: Moth er Status:Active Unknown Family Member Name Dates Details Family history unknown: Moth er, Father(V49.89, Z78.9) Status:Active Anxiety and depression: Moth er Status:Active Advance Directives No Advanced Directives Records Found Date Activated Date Inactivated Comments 07/09/2023 3:26 PM 07/10/2023 5:46 PM Question Answer Comments Full Code Order Discussed With: Patient Chief Complaint pt here for physical no concernspt presents for f/u anxiety* f/u urgent care * pt states she finished tx from Chlamydia last week * was sexually active the last day of her tx * believes she still has chlamydia and he symptoms are returning * current sx include: cramping in abdomen, urgency to urinate, nausea, burning - all the same sx she had w/ previous dx * f/u urgent care * pt states she finished tx from Chlamydia last week * was sexually active the last day of her tx * believes she still has chlamydia and he symptoms are returning * current sx include: cramping in abdomen, urgency to urinate, nausea, burning - all the same sx she had w/ previous dx Health Concerns Infection Onset Date Last Indicated Resolved Time COVID-19 Rule-Out 11/21/2021 11/21/2021 11/21/2021 10:49 AM EDT Additional Source Comments INFORMATION SOURCE (unrecogn ized section and content) DATE CREATED AUTHOR 08/10/2018 [facility] DATE CREATED AUTHOR AUTHOR'S ORGANIZ ATION 11/05/2018 [facility] DATE CREATED AUTHOR AUTHOR'S ORGANIZ ATION 11/30/2021 [facility] DATE CREATED AUTHOR AUTHOR'S ORGANIZ ATION 02/25/2022 [facility] DATE CREATED AUTHOR AUTHOR'S ORGANIZ ATION 05/26/2022 [facility] DATE CREATED AUTHOR AUTHOR'S ORGANIZ ATION 05/26/2022 [employer] DATE CREATED AUTHOR AUTHOR'S ORGANIZ ATION 07/12/2023 [facility] DATE CREATED AUTHOR AUTHOR'S ORGANIZ ATION 10/08/2023 [facility] DATE CREATED AUTHOR AUTHOR'S ORGANIZ ATION 01/30/2024 [facility] DATE CREATED AUTHOR AUTHOR'S ORGANIZ ATION 04/08/2024 [facility] DATE CREATED AUTHOR AUTHOR'S ORGANIZ ATION 06/20/2024 [facility] DATE CREATED AUTHOR AUTHOR'S ORGANIZ ATION 09/16/2024 [facility] DATE CREATED AUTHOR AUTHOR'S ORGANIZ ATION 11/17/2024 [facility] DATE CREATED AUTHOR AUTHOR'S ORGANIZ ATION 12/15/2024 [facility] Source Comments (unrecognize d section and content) In the event this informatio n is protected by the Federal Confidentiality of Alcohol and Drug Abuse Patient Records regulations: The Federal rules restrict any use of the information to criminally investigate or prosecute any alcohol or drug abuse patient.[facility] the event this information is protected by the Federal Confidentiality of Alcohol and Drug Abuse Patient Records regulations: The Federal rules restrict any use of the information to criminally investigate or prosecute any alcohol or drug abuse patient.[facility] the event this information is protected by the Federal Confidentiality of Alcohol and Drug Abuse Patient Records regulations: The Federal rules restrict any use of the information to criminally investigate or prosecute any alcohol or drug abuse patient.[facility] Reason for Visit (unrecogniz ed section and content) Reason Onset Date Comments Suicidal Ideation 11/21/2021 Reason Comments Follow-up Meds. Wants referral for medication management w/psych Reason Comments UTI Lower back pain, fev er, Dysuria x 3 days Reason Comments New Reason Onset Date Comments Psychiatric Problem 03/23/2024 Reason Comments Hospital Follow-up In the hospital for a mental issues Care Teams (unrecognized sec tion and content) 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 Relationship Specialty Start Date End Date Aneta Crabtree MD [address] [place], [place] [phone] PCP - General Family Practice 11/21/21 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 Relationship Specialty Start Date End Date Aneta Crabtree MD [address] [facility], [address] [place] [id number] PCP - General 01/23/19 Lux Shane MD [address] [facility], [address] [address] PCP - [place] [facility] PCP 06/15/22 [place] [id number] [facility] [place] [address] Psychiatrist Psychiatry 02/26/23 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 Relationship Specialty Start Date End Date Aneta Crabtree MD [address] [place] [address], [address] [address] PCP - General 01/23/19 Lux Shane MD [address] [facility], [address] [address] PCP - [place] [facility] PCP 06/15/22 [place] [address] [facility] [place] [address] Psychiatrist Psychiatry 02/26/23 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 Relationship Specialty Start Date End Date Aneta Crabtree MD [address] [place] [address] PCP - General Family Medicine 11/21/21 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 Relationship 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 Start Date End Date Aneta Crabtree MD [address] [place] [address] PCP - General Family Medicine 11/21/21 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 This clinical summary was aggregated from multiple sources. Caution should be exercised in using it in the provision of clinical care. This summary normalizes information from multiple sources, and as a consequence, information in this document may materially change the coding, format and clinical context of patient data. In addition, data may be omitted in some cases. CLINICAL DECISIONS SHOULD BE BASED ON THE PRIMARY CLINICAL RECORDS. [facility] [employer] provides no warranty or guarantee of the accuracy or completeness of information in this document.
[2025-03-29 18:43] VITALS: BP 142/72; PULSE 101; RESP 15; TEMP 36.3; O2SAT 99
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
== END 2025-03-29 18:50 | disposition home or self-care (01) ==
PROVIDERS: Emergency Provider Emergency Medicine; PCP Family Medicine; Visit Provider Emergency Medicine
DX: S01.511A Laceration without foreign body of lip, initial encounter (principal); V48.5XXA Car driver injured in noncollision transport accident in traffic accident, initial encounter
CPT/HCPCS: 13152; 70450; 70486; 72125; 99285